=== PATIENT | female | born 1945 | race Caucasian/White ===

== ENCOUNTER 2017-07-31 07:17 | Day surgery (SDC) | payer MEDICARE ==
[2017-07-29 14:18] VITALS: BMI 30.9
[~2017-07-31 07:17] MED LIST: LACTATED RINGERS 1,000 ML IV SCH
[2017-07-31] MEDS ORDERED: LIDOCAINE 1% 20 ML VIAL (10MG/ML) FOR IV START INTRADERMA ONE (07:45)
[2017-07-31 07:53] LABS: Glucose,Whole Blood 149 mg/dL (75-99)
[2017-07-31 07:59] VITALS: TEMP 98.1
[2017-07-31] MEDS ORDERED: PROPOFOL 10 MG/ML 20 ML VIAL IV ONE (08:03)
[2017-07-31] MEDS ORDERED: LIDOCAINE 1% INJ 10MG/ML (20 ML MDV) ONE (08:03)
--- NOTE | 2017-07-31 08:16 | P.PCN ---
Date of Procedure: 07/31/17 Procedure(s) Performed: BRIEF HISTORY: Patient is a 72-year-old pleasant white female , scheduled for an elective colonoscopy as a part of screening for colon neoplasia. PROCEDURE PERFORMED: Colonoscopy. PREOPERATIVE DIAGNOSIS: Screening for colon cancer.. IV sedation per Anesthesia. PROCEDURE: After informed consent was obtained, the patient, was brought into the endoscopy unit. IV sedation was administered by Anesthesia under continuous monitoring. Digital rectal examination was normal. Initially the Olympus CF- 160 flexible video colonoscope was then inserted in the rectum, gradually advanced into the cecum without any difficulty. Careful examination was performed as the scope was gradually being withdrawn. Ileocecal valve and the appendiceal orifice were visualized and appeared normal. Prep was excellent. Mucosa of the cecum, ascending colon, transverse colon, descending colon, sigmoid colon, and rectum appeared normal. scattered sigmoid diverticulosis seen. Retroflexion was performed in the rectum and small internal hemorrhoids were seen. The patient tolerated the procedure well. IMPRESSION: Normal-appearing colon from rectum to cecum with no evidence of colorectal neoplasia . Scattered sigmoid diverticulosis Small internal hemorrhoids RECOMMENDATIONS: Findings of this examination were discussed with the patient as well as her family. She was advised to have a repeat screening colonoscopy at age 80.
[2017-07-31 08:39] VITALS: BP 130/77; PULSE 65; RESP 16
== END 2017-07-31 09:04 | disposition home or self-care (01) ==
LOC: ORWHC2ENDO 07:17
PROVIDERS: ATTEND Internal Medicine Gastroenterology
DX: Z12.11 Encounter for screening for malignant neoplasm of colon (principal); K57.30 Diverticulosis of large intestine without perforation or abscess without bleeding; K64.8 Other hemorrhoids; E11.9 Type 2 diabetes mellitus without complications; Z79.84 Long term (current) use of oral hypoglycemic drugs
CPT/HCPCS: J2001; J2704; G0121

== ENCOUNTER → 2017-09-21 | Outpatient (CLI) | payer MEDICARE ==
--- NOTE | 2017-09-21 16:22 | BD ---
EXAMINATION TYPE: MG DEXA axial skeleton. DATE OF EXAM: 09/21/2017 CLINICAL HISTORY: 72-year-old female osteoporosis, postmenopausal screening Height: 62.25 Weight: 175 FRAX RISK QUESTIONS: Alcohol (3 or more units per day): no Family History (Parent hip fracture): no Glucocorticoids (More than 3mos): no (Ex: prednisone, prednisolone, methylprednisolone, dexamethasone, and hydrocortisone). History of Fracture in Adulthood: no Secondary Osteoporosis: 1. Type 1 Diabetes: no 2. Hyperthyroidism: no 3. Menopause before 45: no 4. Malnutrition: no 5. Chronic liver disease: no Rheumatoid Arthritis: no Current Tobacco Use: no RISK FACTORS HISTORY OF: Family History of Osteoporosis: no Active: yes Diet low in dairy products/other sources of calcium: no Postmenopausal woman: yes Take estrogen and/or progesterone medications: not now How long: about 5 years Lost more than 2 inches in height since high school: no Frequent falls: no Poor Health: no Hyperparathyroidism: no Adrenal Insufficiency: no MEDICATIONS: Prednisone or other steroids: no Thyroid Medications: no Osteoporosis Medications: no Additional Medications: metformin Additional History: Type II diabetic EXAM MEASUREMENTS: Bone mineral densitometry was performed using the [employer] System. Bone mineral density as measured about the Lumbar spine is: ----- L1-L4(G/cm2): 1.243 T Score Values are as follows: ----- L2: 0.0 ----- L3: 0.9 ----- L4: 0.5 ----- L1-L4: 0.5 Bone mineral density has: Decreased -3.8% since study of: 06/26/2014 Bone mineral density about the R hip (g/cm2): 0.931 Bone mineral density about the L hip (g/cm2): 0.934 T Score values are as follows: -----R Neck: -0.8 -----L Neck: -0.7 -----R Total: 0.0 -----L Total: 0.1 Bone mineral density has: Decreased -3.3% since study of: 06/26/2014 IMPRESSION: Normal (Values between +1 and -1 indicate normal bone mass). Consider repeating this study in 5 year s or sooner if there is some new clinical indication. NOTE: T-SCORE=SD OF THE YOUNG ADULT MEAN.
--- NOTE | 2017-09-22 09:52 | MM ---
Reason for exam: screening (asymptomatic). Last mammogram was performed 1 year and 11 months ago. History: Patient is postmenopausal. Benign excisional biopsy of the left breast. Took estrogen for 5 years beginning at age 48. Took progesterone for 5 years beginning at age 48. Physical Findings: A clinical breast exam by your physician is recommended on an annual basis and results should be correlated with mammographic findings. MG 3D Screening Mammo W/Cad Bilateral CC and MLO view(s) were taken. Prior study comparison: October 26, 2015, bilateral MG 3d screening mammo w/cad. June 26, 2014, bilateral MG screening mammo w CAD. There are scattered fibroglandular densities. Finding: There are typically benign vascular, dystrophic, round calcifications in both breasts. ASSESSMENT: Benign, BI-RAD 2 RECOMMENDATION: Routine screening mammogram of both breasts in 1 year.
== END | disposition home or self-care (01) ==
LOC: RADMAMWWP 06:51
PROVIDERS: ATTEND Internal Medicine Geriatric Medicine
DX: Z12.31 Encounter for screening mammogram for malignant neoplasm of breast (principal); M81.0 Age-related osteoporosis without current pathological fracture
CPT/HCPCS: 77063; 77067; 77080

== ENCOUNTER → 2018-12-16 | Outpatient (CLI) | payer MEDICARE | END | disposition home or self-care (01) | LOC: LABWHC1 16:00 | PROVIDERS: ATTEND Internal Medicine Geriatric Medicine | DX: Z01.83 Encounter for blood typing (principal) | CPT/HCPCS: 86900; 86901 ==

== ENCOUNTER → 2019-03-23 | Outpatient (CLI) | payer MEDICARE | END | disposition home or self-care (01) | LOC: LABWHC1 09:54 | PROVIDERS: ATTEND Internal Medicine Endocrinology, Diabetes & Metabolism | DX: E11.65 Type 2 diabetes mellitus with hyperglycemia (principal) | CPT/HCPCS: 36415; 82947; 84681 ==

== ENCOUNTER 2020-04-07 15:49 | Inpatient (IN) | payer MEDICARE ==
[2020-04-07] MEDS ORDERED: SODIUM CHLORIDE 0.9% 1,000 ML IV STA ×2 (16:17→17:54)
[2020-04-07 16:44] LABS: Basophils # (A) 0.1 k/uL (0-0.2); Basophils % (A) 1 %; Eosinophils # (A) 0.1 k/uL (0-0.7); Eosinophils % (A) 1 %; HCT 36.6 % (34.0-46.0); HGB 11.7 gm/dL (11.4-16.0); Lymphocytes # (A) 0.6 k/uL (1.0-4.8); Lymphocytes % (A) 3 %; MCH 31.7 pg (25.0-35.0); MCHC 31.9 g/dL (31.0-37.0); MCV 99.4 fL (80.0-100.0); Mean Platelet Volume 8.7; Monocytes # (A) 0.9 k/uL (0-1.0); Monocytes % (A) 5 %; Neutrophils # (A) 15.3 k/uL (1.3-7.7); Neutrophils % (A) 90 %; Platelet Count 202 k/uL (150-450); RBC 3.68 m/uL (3.80-5.40); RDW 13.7 % (11.5-15.5); WBC 17.1 k/uL (3.8-10.6)
[2020-04-07 16:54] LABS: ALT 284 U/L (4-34); AST 600 U/L (14-36); African American GFR (CKD) >90 (>60 ml/min/1.73 sqM); Albumin 3.6 g/dL (3.5-5.0); Alkaline Phosphatase 318 U/L (38-126); Anion Gap 11 mmol/L; Blood Urea Nitrogen 20 mg/dL (7-17); Calcium 9.1 mg/dL (8.4-10.2); Carbon Dioxide 23 mmol/L (22-30); Chloride 101 mmol/L (98-107); Glucose 258 mg/dL (74-99); Lipase 86 U/L (23-300); Magnesium 1.9 mg/dL (1.6-2.3); Non-African American GFR(CKD) 78 (>60 ml/min/1.73 sqM); Potassium 4.2 mmol/L (3.5-5.1); Sodium 135 mmol/L (137-145); Total Protein 6.8 g/dL (6.3-8.2)
--- NOTE | 2020-04-07 16:54 | XR ---
EXAMINATION TYPE: XR chest 2V DATE OF EXAM: 04/07/2020 COMPARISON: None INDICATION: Abdomen pain dizziness TECHNIQUE: Frontal and lateral views of the chest are obtained. FINDINGS: The heart size is normal. The pulmonary vasculature is normal. The lungs are clear. IMPRESSION: 1. No acute pulmonary process.
--- NOTE | 2020-04-07 16:55 | XR ---
EXAMINATION TYPE: XR KUB DATE OF EXAM: 04/07/2020 COMPARISON: None INDICATION: Abdomen pain TECHNIQUE: Single view abdomen upright view FINDINGS: Nonspecific bowel gas is present. This appears to be colonic. No suspicious differential air-fluid le vels are evident. No free air is evident. Psoas margins are normal. No organomegaly is present. IMPRESSION: 1. Nonspecific abdomen.
[2020-04-07 17:02] LABS: INR 1.1 (<1.2); Prothrombin Time 10.8 sec (9.0-12.0)
--- NOTE | 2020-04-07 17:04 | ED ---
Dizziness HPI - General Chief Complaint: Dizziness Stated Complaint: dizziness/abdominal pain Time Seen by Provider: 04/07/20 15:59 Source: patient, RN notes reviewed Mode of arrival: ambulatory Limitations: no limitations - History of Present Illness Initial Comments: This is a 75-year-old female who presents with complaints of some dizziness also some abdominal pain and vague chest discomfort started about 2 days ago. He states the pain in the abdomen is the most concerning to her service in the epigastrium and goes down midline toward the pelvis is 7/10 severity otherwise nonradiating she denies any nausea vomiting diarrhea fevers chills or sweats. The pain does get somewhat worse with movement and deep breathing. Is no prior history of appendectomy or cholecystectomy no prior history of diverticulitis. She demonstrates no shortness of breath no cough or phlegm production no other modifying factors she also denies dysuria or hematuria MD Complaint: dizziness, other - Related Data Home Medications Medication Instructions Recorded Confirmed Fish Oil Dose Unk 1 each PO DAILY 07/29/17 07/31/17 Vitamin D Dose Unk 1 each PO DAILY 07/29/17 07/31/17 glyBURIDE/METFORMIN HCL 1 each PO DAILY 07/29/17 07/31/17 [Glucovance 1.25-250 mg] Allergies Allergy/AdvReac Type Severity Reaction Status Date / Time No Known Allergies Allergy Verified 04/07/20 19:27 Review of Systems ROS Statement: Those systems with pertinent positive or pertinent negative responses have been documented in the HPI. ROS Other: All systems not noted in ROS Statement are negative. Past Medical History Past Medical History: Diabetes Mellitus Additional Past Medical History / Comment(s): HAS A PESSARY History of Any Multi-Drug Resistant Organisms: None Reported Past Surgical History: Tubal Ligation Additional Past Surgical History / Comment(s): EYE SX TODDLER Past Anesthesia/Blood Transfusion Reactions: No Reported Reaction Past Psychological History: No Psychological Hx Reported Smoking Status: Never smoker Past Alcohol Use History: Rare Past Drug Use History: None Reported - Past Family History Mother Family Medical History: No Reported History General Exam - General Exam Comments Initial Comments: This is a well-developed well-nourished awake alert oriented 3 female Limitations: no limitations General appearance: alert, in no apparent distress Head exam: Present: atraumatic, normocephalic, normal inspection Eye exam: Present: normal appearance, PERRL, EOMI. Absent: scleral icterus, conjunctival injection, periorbital swelling ENT exam: Present: normal exam, mucous membranes moist Neck exam: Present: normal inspection, full ROM, other. Absent: tenderness, meningismus, lymphadenopathy Respiratory exam: Present: normal lung sounds bilaterally. Absent: respiratory distress, wheezes, rales, rhonchi, stridor Cardiovascular Exam: Present: regular rate, normal rhythm, normal heart sounds. Absent: systolic murmur, diastolic murmur, rubs, gallop, clicks GI/Abdominal exam: Present: soft, tenderness, normal bowel sounds. Absent: distended, guarding, rebound, rigid, bruit (Center. [place]), pulsatile mass Rectal exam: Present: deferred (Mild nonspecific tenderness no guarding rebound masses or bruits more so on the left lower quadrant) Extremities exam: Present: normal inspection, full ROM, normal capillary refill. Absent: tenderness, pedal edema, joint swelling, calf tenderness Back exam: Present: normal inspection Neurological exam: Present: alert, oriented X3, CN II-XII intact Psychiatric exam: Present: normal affect, normal mood Skin exam: Present: warm, dry, intact, normal color. Absent: rash Course Vital Signs 04/07/20 04/07/20 15:50 17:51 Temperature 97.8 F Pulse Rate 73 75 Respiratory 18 18 Rate Blood Pressure 132/58 153/69 O2 Sat by Pulse 97 97 Oximetry EKG Findings - EKG Results: EKG: interpreted by ERMD, sinus rhythm (Neuro sinus rhythm of 69 with a ND interval interval of 138 QRS duration 70 QT since QTC 400/428 normal-appearing EKG) Medical Decision Making - Medical Decision Making I did discuss findings with the patient with Dr. Mcmahon patient be admitted with GI consultation IV fluids antibiotics clear liquids at this time. Consultation with Dr. Dave who did call back. - Lab Data Result diagrams: 04/07/20 16:28 04/07/20 16:28 Lab Results 04/07/20 04/07/20 04/07/20 Range/Units 16:28 16:28 16:28 WBC 17.1 H (3.8-10.6) k/uL RBC 3.68 L (3.80-5.40) m/uL Hgb 11.7 (11.4-16.0) gm/dL Hct 36.6 (34.0-46.0) % MCV 99.4 (80.0-100.0) fL MCH 31.7 (25.0-35.0) pg MCHC 31.9 (31.0-37.0) g/dL RDW 13.7 (11.5-15.5) % Plt Count 202 (150-450) k/uL Neutrophils % 90 % Lymphocytes % 3 % Monocytes % 5 % Eosinophils % 1 % Basophils % 1 % Neutrophils # 15.3 H (1.3-7.7) k/uL Lymphocytes # 0.6 L (1.0-4.8) k/uL Monocytes # 0.9 (0-1.0) k/uL Eosinophils # 0.1 (0-0.7) k/uL Basophils # 0.1 (0-0.2) k/uL PT 10.8 (9.0-12.0) sec INR 1.1 (<1.2) D-Dimer 1.83 H (<0.60) mg/L FEU Sodium 135 L (137-145) mmol/L Potassium 4.2 (3.5-5.1) mmol/L Chloride 101 (98-107) mmol/L Carbon Dioxide 23 (22-30) mmol/L Anion Gap 11 mmol/L BUN 20 H (7-17) mg/dL Creatinine 0.75 (0.52-1.04) mg/dL Est GFR (CKD-EPI)AfAm >90 (>60 ml/min/1.73 sqM) Est GFR (CKD-EPI)NonAf 78 (>60 ml/min/1.73 sqM) Glucose 258 H (74-99) mg/dL Lactic Ac Sepsis Rflx Plasma Lactic Acid Jeevan (0.7-2.0) mmol/L Calcium 9.1 (8.4-10.2) mg/dL Magnesium 1.9 (1.6-2.3) mg/dL Total Bilirubin 3.0 H (0.2-1.3) mg/dL AST 600 H (14-36) U/L ALT 284 H (4-34) U/L Alkaline Phosphatase 318 H (38-126) U/L Troponin I (0.000-0.034) ng/mL Total Protein 6.8 (6.3-8.2) g/dL Albumin 3.6 (3.5-5.0) g/dL Lipase 86 (23-300) U/L Urine Color Urine Appearance (Clear) Urine pH (5.0-8.0) Ur Specific [place] (1.001-1.035) Urine Protein (Negative) Urine Glucose (UA) (Negative) Urine Ketones (Negative) Urine Blood (Negative) Urine Nitrite (Negative) Urine Bilirubin (Negative) Urine Urobilinogen (<2.0) mg/dL Ur Leukocyte Esterase (Negative) Urine RBC (0-5) /hpf Urine WBC (0-5) /hpf Ur Squamous Epith Cells (0-4) /hpf Urine Mucus (None) /hpf 04/07/20 04/07/20 04/07/20 Range/Units 16:28 16:37 17:01 WBC (3.8-10.6) k/uL RBC (3.80-5.40) m/uL Hgb (11.4-16.0) gm/dL Hct (34.0-46.0) % MCV (80.0-100.0) fL MCH (25.0-35.0) pg MCHC (31.0-37.0) g/dL RDW (11.5-15.5) % Plt Count (150-450) k/uL Neutrophils % % Lymphocytes % % Monocytes % % Eosinophils % % Basophils % % Neutrophils # (1.3-7.7) k/uL Lymphocytes # (1.0-4.8) k/uL Monocytes # (0-1.0) k/uL Eosinophils # (0-0.7) k/uL Basophils # (0-0.2) k/uL PT (9.0-12.0) sec INR (<1.2) D-Dimer (<0.60) mg/L FEU Sodium (137-145) mmol/L Potassium (3.5-5.1) mmol/L Chloride (98-107) mmol/L Carbon Dioxide (22-30) mmol/L Anion Gap mmol/L BUN (7-17) mg/dL Creatinine (0.52-1.04) mg/dL Est GFR (CKD-EPI)AfAm (>60 ml/min/1.73 sqM) Est GFR (CKD-EPI)NonAf (>60 ml/min/1.73 sqM) Glucose (74-99) mg/dL Lactic Ac Sepsis Rflx Y Plasma Lactic Acid Jeevan 3.0 H* (0.7-2.0) mmol/L Calcium (8.4-10.2) mg/dL Magnesium (1.6-2.3) mg/dL Total Bilirubin (0.2-1.3) mg/dL AST (14-36) U/L ALT (4-34) U/L Alkaline Phosphatase (38-126) U/L Troponin I <0.012 (0.000-0.034) ng/mL Total Protein (6.3-8.2) g/dL Albumin (3.5-5.0) g/dL Lipase (23-300) U/L Urine Color Urine Appearance (Clear) Urine pH (5.0-8.0) Ur Specific [place] (1.001-1.035) Urine Protein (Negative) Urine Glucose (UA) (Negative) Urine Ketones (Negative) Urine Blood (Negative) Urine Nitrite (Negative) Urine Bilirubin (Negative) Urine Urobilinogen (<2.0) mg/dL Ur Leukocyte Esterase (Negative) Urine RBC (0-5) /hpf Urine WBC (0-5) /hpf Ur Squamous Epith Cells (0-4) /hpf Urine Mucus (None) /hpf 04/07/20 Range/Units 19:01 WBC (3.8-10.6) k/uL RBC (3.80-5.40) m/uL Hgb (11.4-16.0) gm/dL Hct (34.0-46.0) % MCV (80.0-100.0) fL MCH (25.0-35.0) pg MCHC (31.0-37.0) g/dL RDW (11.5-15.5) % Plt Count (150-450) k/uL Neutrophils % % Lymphocytes % % Monocytes % % Eosinophils % % Basophils % % Neutrophils # (1.3-7.7) k/uL Lymphocytes # (1.0-4.8) k/uL Monocytes # (0-1.0) k/uL Eosinophils # (0-0.7) k/uL Basophils # (0-0.2) k/uL PT (9.0-12.0) sec INR (<1.2) D-Dimer (<0.60) mg/L FEU Sodium (137-145) mmol/L Potassium (3.5-5.1) mmol/L Chloride (98-107) mmol/L Carbon Dioxide (22-30) mmol/L Anion Gap mmol/L BUN (7-17) mg/dL Creatinine (0.52-1.04) mg/dL Est GFR (CKD-EPI)AfAm (>60 ml/min/1.73 sqM) Est GFR (CKD-EPI)NonAf (>60 ml/min/1.73 sqM) Glucose (74-99) mg/dL Lactic Ac Sepsis Rflx Plasma Lactic Acid Jeevan (0.7-2.0) mmol/L Calcium (8.4-10.2) mg/dL Magnesium (1.6-2.3) mg/dL Total Bilirubin (0.2-1.3) mg/dL AST (14-36) U/L ALT (4-34) U/L Alkaline Phosphatase (38-126) U/L Troponin I (0.000-0.034) ng/mL Total Protein (6.3-8.2) g/dL Albumin (3.5-5.0) g/dL Lipase (23-300) U/L Urine Color Yellow Urine Appearance Clear (Clear) Urine pH 6.0 (5.0-8.0) Ur Specific [place] >1.050 H (1.001-1.035) Urine Protein 1+ H (Negative) Urine Glucose (UA) 4+ H (Negative) Urine Ketones 1+ H (Negative) Urine Blood Small H (Negative) Urine Nitrite Negative (Negative) Urine Bilirubin 1+ H (Negative) Urine Urobilinogen 4.0 (<2.0) mg/dL Ur Leukocyte Esterase Large H (Negative) Urine RBC 5 (0-5) /hpf Urine WBC 12 H (0-5) /hpf Ur Squamous Epith Cells 6 H (0-4) /hpf Urine Mucus Occasional H (None) /hpf - Radiology Data Radiology results: report reviewed (I did review the imaging and report is evidence of an enlarged gallbladder with the enlarged common bile duct 8 mm. Imaging there unremarkable), image reviewed Disposition Clinical Impression: Acute cholecystitis, Hyperbilirubinemia, Abdominal pain Disposition: ADMITTED IP TO THIS HOSP Condition: Fair Referrals: Baltazar Amaya MD [Primary Care Provider] - 1-2 days
[2020-04-07 17:22] LABS: D-Dimer 1.83 mg/L FEU (<0.60)
--- NOTE | 2020-04-07 17:58 | US ---
EXAMINATION TYPE: US gallbladder DATE OF EXAM: 04/07/2020 COMPARISON: NONE CLINICAL HISTORY: Abdominal pain, elevated bilirubin. Pain EXAM MEASUREMENTS: Liver Length: 12.1 cm Gallbladder Wall: 0.3 cm CBD: 0.8 cm Right Kidney: 9.5 x 4.5 x 3.3 cm Pancreas: Appears slightly echogenic Liver: appears wnl Gallbladder: Large amount of sludge visualized. Evidence for sonographic Rincon's sign: No CBD: wnl Right Kidney: Limited due to overlying bowel gas. IMPRESSION: 1. Large debris-filled gallbladder. Consider cholecystitis. Underlying mass and neoplasm of the gallb ladder is not excluded.
--- NOTE | 2020-04-07 19:09 | CT ---
EXAMINATION TYPE: CT abdomen pelvis w con DATE OF EXAM: 04/07/2020 COMPARISON: None INDICATION: Pelvic pain x couple days. DLP: 1058.3 mGycm, Automated exposure control for dose reduction was used. CONTRAST: 100 mL of Isovue 300. Study performed without Oral Contrast TECHNIQUE: Axial images were obtained from above the diaphragm to the pubic rami in the axial plane a t 5 mm thick sections. Reconstructed images are reviewed on the computer in the coronal plane. FINDINGS: Limited CT sections are obtained the lung bases. The lung bases are clear. CT ABDOMEN: Liver: Normal Spleen: Normal Pancreas: Atrophic Adrenal glands: The adrenal glands are normal. Gallbladder: Gallbladder is distended. The common bile duct appears somewhat prominent. There may be a small density at the neck of the gallbladder. Some inflammatory changes adjacent to the fundus of t he gallbladder. Correlate for acute cholecystitis. Kidneys: No masses are evident. No hydronephrosis is present. There is a 1.0 cm cyst on the cortex of the posterior lateral right kidney. Delayed images were obtained through the kidneys, which remai n unremarkable. Aorta: Vascular calcification is within the aorta. Inferior vena cava: Normal. CT PELVIS: Loops of bowel within the abdomen and pelvis are normal. Study is performed without oral contrast limiting bowel evaluation. Multiple diverticular changes without acute diverticulitis are within the mid sigmoid colon. Appendix: Normal as visualized. Urinary bladder: Normal. Pessary is under the urinary bladder. Genitourinary structures: Uterus is normal. Adnexal regions are clear Osseous structures: No suspicious lytic or sclerotic lesions. IMPRESSIONS: 1. Distended gallbladder with some adjacent inflammatory changes and prominent common bile duct. Cor relate for acute cholecystitis. A small gallstone near the gallbladder neck is not excluded
[2020-04-07 19:19] LABS: Appearance,Urine Clear (Clear); Bilirubin,Urine 1+ (Negative); Blood,Urine Small (Negative); Color,Urine Yellow; Glucose,Urine (UA) 4+ (Negative); Ketones,Urine 1+ (Negative); Leukocyte Esterase,Urine Large (Negative); Mucus,Urine Occasional /hpf; Nitrite,Urine Negative (Negative); Protein,Urine 1+ (Negative); RBC,Urine 5 /hpf (0-5); Specific Gravity,Urine >1.050 (1.001-1.035); Squamous Epithelial Cell,Urine 6 /hpf (0-4); WBC,Urine 12 /hpf (0-5)
[2020-04-07] MEDS ORDERED: PIPERACILLIN-TAZOBACTAM 3.375 GM in SODIUM CHLORIDE 0.9% 100 ML IVPB STA (19:20)
[2020-04-07] MEDS ORDERED: NALOXONE 0.4 MG/ML 1 ML VIAL IV PRN (19:32)
--- NOTE | 2020-04-07 19:32 | ED ---
Medical Decision Making - Lab Data Result diagrams: 04/07/20 16:28 04/07/20 16:28 Lab Results 04/07/20 04/07/20 04/07/20 Range/Units 16:28 16:28 16:28 WBC 17.1 H (3.8-10.6) k/uL RBC 3.68 L (3.80-5.40) m/uL Hgb 11.7 (11.4-16.0) gm/dL Hct 36.6 (34.0-46.0) % MCV 99.4 (80.0-100.0) fL MCH 31.7 (25.0-35.0) pg MCHC 31.9 (31.0-37.0) g/dL RDW 13.7 (11.5-15.5) % Plt Count 202 (150-450) k/uL Neutrophils % 90 % Lymphocytes % 3 % Monocytes % 5 % Eosinophils % 1 % Basophils % 1 % Neutrophils # 15.3 H (1.3-7.7) k/uL Lymphocytes # 0.6 L (1.0-4.8) k/uL Monocytes # 0.9 (0-1.0) k/uL Eosinophils # 0.1 (0-0.7) k/uL Basophils # 0.1 (0-0.2) k/uL PT 10.8 (9.0-12.0) sec INR 1.1 (<1.2) D-Dimer 1.83 H (<0.60) mg/L FEU Sodium 135 L (137-145) mmol/L Potassium 4.2 (3.5-5.1) mmol/L Chloride 101 (98-107) mmol/L Carbon Dioxide 23 (22-30) mmol/L Anion Gap 11 mmol/L BUN 20 H (7-17) mg/dL Creatinine 0.75 (0.52-1.04) mg/dL Est GFR (CKD-EPI)AfAm >90 (>60 ml/min/1.73 sqM) Est GFR (CKD-EPI)NonAf 78 (>60 ml/min/1.73 sqM) Glucose 258 H (74-99) mg/dL Lactic Ac Sepsis Rflx Plasma Lactic Acid Jeevan (0.7-2.0) mmol/L Calcium 9.1 (8.4-10.2) mg/dL Magnesium 1.9 (1.6-2.3) mg/dL Total Bilirubin 3.0 H (0.2-1.3) mg/dL AST 600 H (14-36) U/L ALT 284 H (4-34) U/L Alkaline Phosphatase 318 H (38-126) U/L Troponin I (0.000-0.034) ng/mL Total Protein 6.8 (6.3-8.2) g/dL Albumin 3.6 (3.5-5.0) g/dL Lipase 86 (23-300) U/L Urine Color Urine Appearance (Clear) Urine pH (5.0-8.0) Ur Specific [place] (1.001-1.035) Urine Protein (Negative) Urine Glucose (UA) (Negative) Urine Ketones (Negative) Urine Blood (Negative) Urine Nitrite (Negative) Urine Bilirubin (Negative) Urine Urobilinogen (<2.0) mg/dL Ur Leukocyte Esterase (Negative) Urine RBC (0-5) /hpf Urine WBC (0-5) /hpf Ur Squamous Epith Cells (0-4) /hpf Urine Mucus (None) /hpf 04/07/20 04/07/20 04/07/20 Range/Units 16:28 16:37 17:01 WBC (3.8-10.6) k/uL RBC (3.80-5.40) m/uL Hgb (11.4-16.0) gm/dL Hct (34.0-46.0) % MCV (80.0-100.0) fL MCH (25.0-35.0) pg MCHC (31.0-37.0) g/dL RDW (11.5-15.5) % Plt Count (150-450) k/uL Neutrophils % % Lymphocytes % % Monocytes % % Eosinophils % % Basophils % % Neutrophils # (1.3-7.7) k/uL Lymphocytes # (1.0-4.8) k/uL Monocytes # (0-1.0) k/uL Eosinophils # (0-0.7) k/uL Basophils # (0-0.2) k/uL PT (9.0-12.0) sec INR (<1.2) D-Dimer (<0.60) mg/L FEU Sodium (137-145) mmol/L Potassium (3.5-5.1) mmol/L Chloride (98-107) mmol/L Carbon Dioxide (22-30) mmol/L Anion Gap mmol/L BUN (7-17) mg/dL Creatinine (0.52-1.04) mg/dL Est GFR (CKD-EPI)AfAm (>60 ml/min/1.73 sqM) Est GFR (CKD-EPI)NonAf (>60 ml/min/1.73 sqM) Glucose (74-99) mg/dL Lactic Ac Sepsis Rflx Y Plasma Lactic Acid Jeevan 3.0 H* (0.7-2.0) mmol/L Calcium (8.4-10.2) mg/dL Magnesium (1.6-2.3) mg/dL Total Bilirubin (0.2-1.3) mg/dL AST (14-36) U/L ALT (4-34) U/L Alkaline Phosphatase (38-126) U/L Troponin I <0.012 (0.000-0.034) ng/mL Total Protein (6.3-8.2) g/dL Albumin (3.5-5.0) g/dL Lipase (23-300) U/L Urine Color Urine Appearance (Clear) Urine pH (5.0-8.0) Ur Specific [place] (1.001-1.035) Urine Protein (Negative) Urine Glucose (UA) (Negative) Urine Ketones (Negative) Urine Blood (Negative) Urine Nitrite (Negative) Urine Bilirubin (Negative) Urine Urobilinogen (<2.0) mg/dL Ur Leukocyte Esterase (Negative) Urine RBC (0-5) /hpf Urine WBC (0-5) /hpf Ur Squamous Epith Cells (0-4) /hpf Urine Mucus (None) /hpf 04/07/20 Range/Units 19:01 WBC (3.8-10.6) k/uL RBC (3.80-5.40) m/uL Hgb (11.4-16.0) gm/dL Hct (34.0-46.0) % MCV (80.0-100.0) fL MCH (25.0-35.0) pg MCHC (31.0-37.0) g/dL RDW (11.5-15.5) % Plt Count (150-450) k/uL Neutrophils % % Lymphocytes % % Monocytes % % Eosinophils % % Basophils % % Neutrophils # (1.3-7.7) k/uL Lymphocytes # (1.0-4.8) k/uL Monocytes # (0-1.0) k/uL Eosinophils # (0-0.7) k/uL Basophils # (0-0.2) k/uL PT (9.0-12.0) sec INR (<1.2) D-Dimer (<0.60) mg/L FEU Sodium (137-145) mmol/L Potassium (3.5-5.1) mmol/L Chloride (98-107) mmol/L Carbon Dioxide (22-30) mmol/L Anion Gap mmol/L BUN (7-17) mg/dL Creatinine (0.52-1.04) mg/dL Est GFR (CKD-EPI)AfAm (>60 ml/min/1.73 sqM) Est GFR (CKD-EPI)NonAf (>60 ml/min/1.73 sqM) Glucose (74-99) mg/dL Lactic Ac Sepsis Rflx Plasma Lactic Acid Jeevan (0.7-2.0) mmol/L Calcium (8.4-10.2) mg/dL Magnesium (1.6-2.3) mg/dL Total Bilirubin (0.2-1.3) mg/dL AST (14-36) U/L ALT (4-34) U/L Alkaline Phosphatase (38-126) U/L Troponin I (0.000-0.034) ng/mL Total Protein (6.3-8.2) g/dL Albumin (3.5-5.0) g/dL Lipase (23-300) U/L Urine Color Yellow Urine Appearance Clear (Clear) Urine pH 6.0 (5.0-8.0) Ur Specific [place] >1.050 H (1.001-1.035) Urine Protein 1+ H (Negative) Urine Glucose (UA) 4+ H (Negative) Urine Ketones 1+ H (Negative) Urine Blood Small H (Negative) Urine Nitrite Negative (Negative) Urine Bilirubin 1+ H (Negative) Urine Urobilinogen 4.0 (<2.0) mg/dL Ur Leukocyte Esterase Large H (Negative) Urine RBC 5 (0-5) /hpf Urine WBC 12 H (0-5) /hpf Ur Squamous Epith Cells 6 H (0-4) /hpf Urine Mucus Occasional H (None) /hpf Disposition Clinical Impression: Acute cholecystitis, Hyperbilirubinemia, Abdominal pain, Lactic acidosis Disposition: ADMITTED IP TO THIS HOSP Condition: Fair Referrals: Baltazar Amaya MD [Primary Care Provider] - 1-2 days
[2020-04-07 21:32] LABS: Glucose,Whole Blood 245 mg/dL (75-99)
[2020-04-07] MEDS: SODIUM CHLORIDE 0.9% 1,000 ML IV SCH (21:52)
[2020-04-07] MEDS ORDERED: MELATONIN 3 MG TABLET PO PRN (22:30)
[2020-04-07] MEDS: HYDROmorphone 1 MG/ML 1 ML SYRINGE IVP PRN (22:31)
[2020-04-07] MEDS: INSULIN ASPART (NovoLOG) 100 UNIT/ML VIAL SQ SCH (23:07)
[2020-04-08 01:43] LABS: Glucose,Whole Blood 146 mg/dL (75-99)
[2020-04-08] MEDS: PIPERACILLIN-TAZOBACTAM 3.375 GM in SODIUM CHLORIDE 0.9% 100 ML IVPB SCH ×3 (04:48→20:29)
[2020-04-08] MEDS: ONDANSETRON 4 MG/2 ML VIAL IVP PRN (04:50)
[2020-04-08] MEDS: SODIUM CHLORIDE 0.9% 1,000 ML IV SCH ×3 (05:52→20:29)
[2020-04-08 06:06] LABS: Glucose,Whole Blood 217 mg/dL (75-99)
[2020-04-08] MEDS ORDERED: INSULIN ASPART (NovoLOG) 100 UNIT/ML VIAL SQ SCH (07:30)
[2020-04-08] MEDS: INSULIN ASPART (NovoLOG) 100 UNIT/ML VIAL SQ SCH ×4 (08:02→20:42)
[2020-04-08 08:53] LABS: Basophils # (A) 0.1 k/uL (0-0.2); Basophils % (A) 0 %; Eosinophils % (A) 0 %; HCT 30.4 % (34.0-46.0); Hypochromasia Slight; Lymphocytes # (A) 0.6 k/uL (1.0-4.8); Lymphocytes % (A) 2 %; MCH 32.1 pg (25.0-35.0); MCHC 31.8 g/dL (31.0-37.0); MCV 100.9 fL (80.0-100.0); Macrocytosis Slight; Mean Platelet Volume 8.3; Monocytes # (A) 1.1 k/uL (0-1.0); Monocytes % (A) 4 %; Neutrophils # (A) 23.7 k/uL (1.3-7.7); Neutrophils % (A) 92 %; Platelet Count 191 k/uL (150-450); RBC 3.01 m/uL (3.80-5.40); RDW 13.8 % (11.5-15.5); WBC 25.7 k/uL (3.8-10.6)
[2020-04-08 08:57] LABS: HGB 9.7 gm/dL (11.4-16.0)
[2020-04-08 08:58] LABS: Albumin 2.7 g/dL (3.5-5.0); Potassium 4.1 mmol/L (3.5-5.1); Total Bilirubin 3.5 mg/dL (0.2-1.3); Total Protein 5.3 g/dL (6.3-8.2)
[2020-04-08] MEDS: PANTOPRAZOLE 40 MG/10 ML VIAL IV SCH (10:07)
--- NOTE | 2020-04-08 10:58 | CONS ---
CONSULTATION DATE OF CONSULTATION: 04/08/2020 REQUESTING PHYSICIAN: Dr. Amaya. REASON FOR CONSULTATION: Elevated LFTs and jaundice. Abdominal pain. HISTORY OF PRESENT ILLNESS: The patient is a 75-year-old pleasant white female who was admitted to the hospital, as she was complaining of some vague chest pain and abdominal discomfort for the last 2 days duration. Apparently she was brought to the emergency room by her son and most of the history was obtained from him as per the ER note. The patient is somewhat confused early this morning. She denies any abdominal pain today. She reports no nausea, vomiting. She recalls having some vague abdominal pain, but cannot give me a clear history. She came to the emergency room and she had labs done that showed that she was jaundiced and labs revealed a bilirubin of 3, AST and ALT of 600 and 284 respectively, alkaline phosphatase of 380. She did have ultrasound of the gallbladder that showed evidence of debris in the gallbladder, large debris-filled gallbladder and cholecystitis could not be excluded. Underlying mass or neoplasm could not be excluded. Subsequently she had a CT of the abdomen and pelvis done last night that showed gallbladder was distended and common bile duct appears somewhat prominent. Small density noted in the neck of the gallbladder. Some inflammatory changes suggested to the fundus of the gallbladder consistent with possible acute cholecystitis. Pancreas appeared atrophic, but no masses seen. She is feeling better today. She reports no symptoms. No fever, chills, night sweats. PAST MEDICAL HISTORY: Significant for diabetes mellitus. PAST SURGICAL HISTORY: Tubal ligation and some eye surgery. MEDICATIONS: Medications at home include Glucovance, fish oil, vitamin D. ALLERGIES: No known drug allergies. SOCIAL HISTORY: No smoking. No alcohol use. FAMILY HISTORY: Mother unremarkable. Father unremarkable. REVIEW OF SYSTEMS: CARDIOPULMONARY: No chest pain or shortness of breath. : No dysuria OR hematuria. MUSCULOSKELETAL: Unremarkable. SKIN: Unremarkable. ENDOCRINE: Unremarkable. PSYCHIATRIC: Unremarkable. NEUROLOGY: Unremarkable. ENT/VISION: Unremarkable. CONSTITUTIONAL: No recent weight loss. No fever, chills, night sweats. PHYSICAL EXAMINATION: She appears comfortable. No apparent distress. VITAL SIGNS: Stable. Blood pressure 129/78, pulse rate 80, temperature 97.8. HEENT: Examination unremarkable. Conjunctivae are pink. Sclerae anicteric. Oral cavity no lesions. NECK: No JVD or lymph node enlargement. CHEST: Clear to auscultation. HEART: Regular rate and rhythm. ABDOMEN: Soft. Minimal tenderness in the epigastric area. Bowel sounds are positive. No organomegaly. EXTREMITIES: No pedal edema. SKIN: No rashes. NEURO: She is alert and oriented x3. No focal deficits. LABS: Labs done from yesterday WBC 17.1, hemoglobin 11.7, platelets normal. PT, INR is within normal limits. T-bilirubin is 3. AST 600, ALT 284, alkaline phosphatase 318. IMPRESSION: 1. This is a lady who presented with vague epigastric pain for the last 2 days duration and noted to have elevated serum transaminases and jaundice with a bilirubin of 3 and ALT and AST in the range of 300 and 600 respectively. Ultrasound showed distended gallbladder with debris noted with slightly distended CBD. Subsequent CT scan of the abdomen showed gallbladder to be distended, common bile duct slightly prominent, small density in the neck of the gallbladder with inflammatory changes adjacent to the fundus of the gallbladder and no pancreatic mass is seen. The patient was already started on broad-spectrum antibiotics for possible acute cholecystitis. She is asymptomatic presently. Elevated LFTs and jaundice probably related to choledocholithiasis. 2. History of diabetes mellitus. RECOMMENDATIONS: 1. Start on clear liquid diet. 2. Continue with antibiotics. 3. Repeat labs today and tomorrow. 4. Proceed with an ERCP tomorrow. I discussed with the patient risks, benefits and complications and she is agreeable. Thank you for this consultation. MMODL / IJN: [id number] /
[2020-04-08 12:04] LABS: Glucose,Whole Blood 194 mg/dL (75-99)
--- NOTE | 2020-04-08 14:03 | P.HPIM ---
History of Present Illness H&P Date: 04/08/20 Chief Complaint: Abdominal pain, This 75-year-old pleasant female patient of Dr. Amaya. She has underlying history of diabetes mellitus type 2, otherwise healthy. Was seen in emergency room secondary to vague abdominal pain, off and on for the past 2 weeks, this has gotten worse over the past 1 week, accompanied by lightheadedness dizziness, fatigue no appetite, patient denies any fever no chills, pain is in the epigastric region 7 out of 10, nonradiating. Patient denies any urine discoloration or stool discoloration, no diarrhea, pain Once in the emergency room, liver function test was noted to be elevated, she slightly jaundice, bili of 3, AST of 600 ALT of 284, alkaline force of 380, ultrasound of the gallbladder showed distended large gallbladder with the previous filled gallbladder, common bile duct is 0.8 cm, common bile duct wall of 0.3 cm, consider cholecystitis, underlying mass any plasm the gallbladder is not excluded CAT scan of the abdomen and pelvis with contrast shows the gallbladder is distended, pancreas is atrophic, common bile duct somewhat prominent, maybe small density at the neck of the gallbladder, some inflammatory change adjacent to the fundus of the gallbladder, correlate for acute cholecystitis. Patient was admitted, with cholecystitis with choledocholithiasis, acute jaundice, blood cultures are positive for gram-negative bacilli, patient's on IV Zosyn. Consult with Dr. Bunn, and Dr. Perez. Review of Systems Constitutional: Reports as per HPI, Reports anorexia, Reports fatigue, Reports lethargy, Reports weakness Ears, nose, mouth and throat: Reports as per HPI Cardiovascular: Reports as per HPI, Denies chest pain, Denies claudication, Denies decreased exercise tolerance, Denies dyspnea on exertion, Denies edema, Denies high blood pressure, Denies irregular heart beat, Denies leg edema, Denies lightheadedness, Denies orthopnea, Denies palpitations, Denies paroxysmal nocturnal dyspnea, Denies phlebitis, Denies rapid heart beat, Denies shortness of breath, Denies syncope Respiratory: Reports as per HPI Gastrointestinal: Reports as per HPI, Reports abdominal pain, Reports belching, Reports bloating, Denies BRBPR, Denies change in bowel habits, Denies coffee ground emesis, Denies constipation, Denies diarrhea, Denies dyspepsia, Denies early satiety, Denies excessive gas, Denies heartburn, Denies hematemesis, Denies hematochezia, Denies indigestion, Denies jaundice, Denies lactose intolerance, Denies loss of appetite, Denies melena, Denies nausea, Denies vom iting Genitourinary: Reports as per HPI Menstruation: Reports as per HPI Musculoskeletal: Reports as per HPI, Denies arm numbness/tingling, Denies atrophy, Denies fractures, Denies frequent falls, Denies gait dysfunction, Den ies hot joints, Denies leg numbness/tingling, Denies limitation of motion, Denies loss of height, Denies low back pain, Denies morning stiffness, Denies muscle cramps, Denies muscle weakness, Denies myalgias, Denies neck pain, Denies neck stiffness, Denies prior amputations, Denies redness of joints, Denies shooting arm pain, Denies shooting leg pain Integumentary: Reports as per HPI, Denies acne, Denies boils, Denies brittle nails, Denies change in hair/nails, Denies color changes, Denies darkening of skin, Denies depigmentation, Denies dryness, Denies foot/leg ulcers, Denies growths, Denies hirsutism, Denies lesions, Denies onychomycosis, Denies pruritus, Denies rash, Denies sores, Denies striae, Denies unusual bruising, Denies wounds Neurological: Reports as per HPI, Reports weakness, Denies aphasia, Denies ataxia, Denies balance difficulties, Denies burning pain, Denies change in mentation, Denies change in smell/taste, Denies change in speech, Denies confusion, Denies convulsions, Denies double vision, Denies gait dysfunction, De nies head injury, Denies headaches, Denies hearing difficulties, Denies lack of coordination, Denies loss of vision, Denies memory loss, Denies migraines, Denies motor disturbance, Denies numbness, Denies paralysis, Denies paresthesias, Denies seizures, Denies sensory deficit, Denies spasticity, Denies syncope, Denies tic, Denies tingling, Denies transient paralysis, Denies tremors, Denies vertigo, Denies visual changes Psychiatric: Reports as per HPI, Denies anhedonia, Denies anxiety, Denies anxiety attacks, Denies change in appetite, Denies change in libido, Denies c hange in sleep habits, Denies confusion, Denies depression, Denies difficulty concentrating, Denies disorientation, Denies hallucinations, Denies hopelessness, Denies hypersomnia, Denies insomnia, Denies irritability, Denies memory loss, Denies mood swings, Denies paranoia, Denies sadness/tearfulness, Denies sleep disturbances, Denies suicidal ideation Endocrine: Reports as per HPI, Denies cold intolerance, Denies deepening of the voice, Denies excessive sweating, Denies excessive thirst, Denies fatigue, Denies flushing, Denies heat intolerance, Denies high blood sugars, Denies increase in ring/shoe/hat size, Denies low blood sugars, Denies nocturia, Denies palpitations, Denies polydipsia, Denies polyphagia, Denies polyuria, Denies proptosis, Denies recent glucocorticoid use, Denies thyroid mass, Denies weight change Hematologic/Lymphatic: Reports as per HPI Allergic/Immunologic: Reports as per HPI Past Medical History Past Medical History: Diabetes Mellitus Additional Past Medical History / Comment(s): HAS A PESSARY History of Any Multi-Drug Resistant Organisms: None Reported Past Surgical History: Tubal Ligation Additional Past Surgical History / Comment(s): EYE SX TODDLER Past Anesthesia/Blood Transfusion Reactions: No Reported Reaction Past Psychological History: No Psychological Hx Reported Smoking Status: Never smoker Past Alcohol Use History: Rare Past Drug Use History: None Reported - Past Family History Mother Family Medical History: No Reported History Father Family Medical History: No Reported History Brother(s) Family Medical History: Osteoarthritis (OA) Sister(s) Family Medical History: No Reported History Daughter(s) Family Medical History: No Reported History Son(s) Family Medical History: No Reported History Medications and Allergies Home Medications Medication Instructions Recorded Confirmed Type Glimepiride [Amaryl] 4 mg PO DAILY 04/07/20 04/07/20 History Allergies Allergy/AdvReac Type Severity Reaction Status Date / Time No Known Allergies Allergy Verified 04/07/20 19:27 Physical Exam Vitals: Vital Signs Temp Pulse Pulse Resp BP BP Pulse Ox 04/08/20 02:24 83 15 04/08/20 02:00 97.8 F 80 17 149/78 98 04/07/20 21:10 98.8 F 83 15 94 L 04/07/20 20:12 98.1 F 75 16 144/68 99 04/07/20 17:51 75 18 153/69 97 04/07/20 15:50 97.8 F 73 18 132/58 97 Intake and Output 04/07/20 04/08/20 04/08/20 23:59 06:59 14:59 Intake Total Balance Intake: Oral Other: # Voids Weight - Constitutional General appearance: cooperative, no acute distress - EENT Eyes: anicteric sclerae, PERRLA, dentition normal, normal appearance ENT: NA/AT, normal oropharynx - Neck Neck: normal ROM - Respiratory Respiratory: bilateral: CTA, negative: diminished, dullness - Cardiovascular Rhythm: regular Heart sounds: normal: S1, S2 Abnormal Heart Sounds: no systolic murmur, no diastolic murmur, no rub, no S3 Gallop, no S4 Gallop, no click, no other - Gastrointestinal General gastrointestinal: normal bowel sounds, soft, tenderness ( none neg mu rphy) - Integumentary Integumentary: normal, normal turgor - Neurologic Neurologic: CNII-XII intact Results CBC & Chem 7: 04/08/20 08:02 04/08/20 08:02 Labs: Abnormal Lab Results - Last 24 Hours (Table) 04/07/20 04/07/20 04/07/20 Range/Units 16:28 16:28 16:28 WBC 17.1 H (3.8-10.6) k/uL RBC 3.68 L (3.80-5.40) m/uL Hgb (11.4-16.0) gm/dL Hct (34.0-46.0) % MCV (80.0-100.0) fL Neutrophils # 15.3 H (1.3-7.7) k/uL Lymphocytes # 0.6 L (1.0-4.8) k/uL Monocytes # (0-1.0) k/uL D-Dimer 1.83 H (<0.60) mg/L FEU Sodium 135 L (137-145) mmol/L BUN 20 H (7-17) mg/dL Glucose 258 H (74-99) mg/dL POC Glucose (mg/dL) (75-99) mg/dL Plasma Lactic Acid Jeevan (0.7-2.0) mmol/L Calcium (8.4-10.2) mg/dL Total Bilirubin 3.0 H (0.2-1.3) mg/dL AST 600 H (14-36) U/L ALT 284 H (4-34) U/L Alkaline Phosphatase 318 H (38-126) U/L Total Protein (6.3-8.2) g/dL Albumin (3.5-5.0) g/dL Ur Specific [place] (1.001-1.035) Urine Protein (Negative) Urine Glucose (UA) (Negative) Urine Ketones (Negative) Urine Blood (Negative) Urine Bilirubin (Negative) Ur Leukocyte Esterase (Negative) Urine WBC (0-5) /hpf Ur Squamous Epith Cells (0-4) /hpf Urine Mucus (None) /hpf 04/07/20 04/07/20 04/07/20 Range/Units 16:37 19:01 19:39 WBC (3.8-10.6) k/uL RBC (3.80-5.40) m/uL Hgb (11.4-16.0) gm/dL Hct (34.0-46.0) % MCV (80.0-100.0) fL Neutrophils # (1.3-7.7) k/uL Lymphocytes # (1.0-4.8) k/uL Monocytes # (0-1.0) k/uL D-Dimer (<0.60) mg/L FEU Sodium (137-145) mmol/L BUN (7-17) mg/dL Glucose (74-99) mg/dL POC Glucose (mg/dL) (75-99) mg/dL Plasma Lactic Acid Jeevan 3.0 H* 2.1 H* (0.7-2.0) mmol/L Calcium (8.4-10.2) mg/dL Total Bilirubin (0.2-1.3) mg/dL AST (14-36) U/L ALT (4-34) U/L Alkaline Phosphatase (38-126) U/L Total Protein (6.3-8.2) g/dL Albumin (3.5-5.0) g/dL Ur Specific [place] >1.050 H (1.001-1.035) Urine Protein 1+ H (Negative) Urine Glucose (UA) 4+ H (Negative) Urine Ketones 1+ H (Negative) Urine Blood Small H (Negative) Urine Bilirubin 1+ H (Negative) Ur Leukocyte Esterase Large H (Negative) Urine WBC 12 H (0-5) /hpf Ur Squamous Epith Cells 6 H (0-4) /hpf Urine Mucus Occasional H (None) /hpf 04/07/20 04/08/20 04/08/20 Range/Units 21:31 01:41 EST 06:05 WBC (3.8-10.6) k/uL RBC (3.80-5.40) m/uL Hgb (11.4-16.0) gm/dL Hct (34.0-46.0) % MCV (80.0-100.0) fL Neutrophils # (1.3-7.7) k/uL Lymphocytes # (1.0-4.8) k/uL Monocytes # (0-1.0) k/uL D-Dimer (<0.60) mg/L FEU Sodium (137-145) mmol/L BUN (7-17) mg/dL Glucose (74-99) mg/dL POC Glucose (mg/dL) 245 H 146 H 217 H (75-99) mg/dL Plasma Lactic Acid Jeevan (0.7-2.0) mmol/L Calcium (8.4-10.2) mg/dL Total Bilirubin (0.2-1.3) mg/dL AST (14-36) U/L ALT (4-34) U/L Alkaline Phosphatase (38-126) U/L Total Protein (6.3-8.2) g/dL Albumin (3.5-5.0) g/dL Ur Specific [place] (1.001-1.035) Urine Protein (Negative) Urine Glucose (UA) (Negative) Urine Ketones (Negative) Urine Blood (Negative) Urine Bilirubin (Negative) Ur Leukocyte Esterase (Negative) Urine WBC (0-5) /hpf Ur Squamous Epith Cells (0-4) /hpf Urine Mucus (None) /hpf 04/08/20 04/08/20 Range/Units 08:02 08:02 WBC 25.7 H (3.8-10.6) k/uL RBC 3.01 L (3.80-5.40) m/uL Hgb 9.7 L D (11.4-16.0) gm/dL Hct 30.4 L (34.0-46.0) % MCV 100.9 H (80.0-100.0) fL Neutrophils # 23.7 H (1.3-7.7) k/uL Lymphocytes # 0.6 L (1.0-4.8) k/uL Monocytes # 1.1 H (0-1.0) k/uL D-Dimer (<0.60) mg/L FEU Sodium (137-145) mmol/L BUN 23 H (7-17) mg/dL Glucose 230 H (74-99) mg/dL POC Glucose (mg/dL) (75-99) mg/dL Plasma Lactic Acid Jeevan (0.7-2.0) mmol/L Calcium 8.0 L (8.4-10.2) mg/dL Total Bilirubin 3.5 H (0.2-1.3) mg/dL AST 300 H (14-36) U/L ALT 237 H (4-34) U/L Alkaline Phosphatase 276 H (38-126) U/L Total Protein 5.3 L (6.3-8.2) g/dL Albumin 2.7 L (3.5-5.0) g/dL Ur Specific [place] (1.001-1.035) Urine Protein (Negative) Urine Glucose (UA) (Negative) Urine Ketones (Negative) Urine Blood (Negative) Urine Bilirubin (Negative) Ur Leukocyte Esterase (Negative) Urine WBC (0-5) /hpf Ur Squamous Epith Cells (0-4) /hpf Urine Mucus (None) /hpf Microbiology - Last 24 Hours (Table) 04/07/20 19:01 Urine Culture - Preliminary Urine,Voided Laboratory Results WBC 25.7 k/uL (3.8-10.6) H 04/08/20 08:02 RBC 3.01 m/uL (3.80-5.40) L 04/08/20 08:02 Hgb 9.7 gm/dL (11.4-16.0) L D 04/08/20 08:02 Hct 30.4 % (34.0-46.0) L 04/08/20 08:02 MCV 100.9 fL (80.0-100.0) H 04/08/20 08:02 MCH 32.1 pg (25.0-35.0) 04/08/20 08:02 MCHC 31.8 g/dL (31.0-37.0) 04/08/20 08:02 RDW 13.8 % (11.5-15.5) 04/08/20 08:02 Plt Count 191 k/uL (150-450) 04/08/20 08:02 Neutrophils % 92 % 04/08/20 08:02 Lymphocytes % 2 % 04/08/20 08:02 Monocytes % 4 % 04/08/20 08:02 Eosinophils % 0 % 04/08/20 08:02 Basophils % 0 % 04/08/20 08:02 Neutrophils # 23.7 k/uL (1.3-7.7) H 04/08/20 08:02 Lymphocytes # 0.6 k/uL (1.0-4.8) L 04/08/20 08:02 Monocytes # 1.1 k/uL (0-1.0) H 04/08/20 08:02 Eosinophils # 0.0 k/uL (0-0.7) 04/08/20 08:02 Basophils # 0.1 k/uL (0-0.2) 04/08/20 08:02 Hypochromasia Slight 04/08/20 08:02 Macrocytosis Slight 04/08/20 08:02 PT 10.8 sec (9.0-12.0) 04/07/20 16:28 INR 1.1 (<1.2) 04/07/20 16:28 D-Dimer 1.83 mg/L FEU (<0.60) H 04/07/20 16:28 Sodium 137 mmol/L (137-145) 04/08/20 08:02 Potassium 4.1 mmol/L (3.5-5.1) 04/08/20 08:02 Chloride 105 mmol/L (98-107) 04/08/20 08:02 Carbon Dioxide 24 mmol/L (22-30) 04/08/20 08:02 Anion Gap 8 mmol/L 04/08/20 08:02 BUN 23 mg/dL (7-17) H 04/08/20 08:02 Creatinine 0.85 mg/dL (0.52-1.04) 04/08/20 08:02 Est GFR (CKD-EPI)AfAm 78 (>60 ml/min/1.73 sqM) 04/08/20 08:02 Est GFR (CKD-EPI)NonAf 68 (>60 ml/min/1.73 sqM) 04/08/20 08:02 Glucose 230 mg/dL (74-99) H 04/08/20 08:02 POC Glucose (mg/dL) 194 mg/dL (75-99) H 04/08/20 12:03 POC Glu [employer]ware Engineer ID Maeve Deleon 04/08/20 12:03 Lactic Ac Sepsis Rflx Y 04/07/20 20:18 Plasma Lactic Acid Jeevan 1.8 mmol/L (0.7-2.0) 04/07/20 22:52 Calcium 8.0 mg/dL (8.4-10.2) L 04/08/20 08:02 Magnesium 1.9 mg/dL (1.6-2.3) 04/07/20 16:28 Total Bilirubin 3.5 mg/dL (0.2-1.3) H 04/08/20 08:02 AST 300 U/L (14-36) H 04/08/20 08:02 ALT 237 U/L (4-34) H 04/08/20 08:02 Alkaline Phosphatase 276 U/L (38-126) H 04/08/20 08:02 Troponin I <0.012 ng/mL (0.000-0.034) 04/07/20 16:28 Total Protein 5.3 g/dL (6.3-8.2) L 04/08/20 08:02 Albumin 2.7 g/dL (3.5-5.0) L 04/08/20 08:02 Lipase 25 U/L (23-300) 04/08/20 08:02 Urine Color Yellow 04/07/20 19: Urine Appearance Clear (Clear) 04/07/20 19: Urine pH 6.0 (5.0-8.0) 04/07/20 19:01 Ur Specific [place] >1.050 (1.001-1.035) H 04/07/20 19: Urine Protein 1+ (Negative) H 04/07/20 19: Urine Glucose (UA) 4+ (Negative) H 04/07/20 19: Urine Ketones 1+ (Negative) H 04/07/20 19: Urine Blood Small (Negative) H 04/07/20 19: Urine Nitrite Negative (Negative) 04/07/20 19: Urine Bilirubin 1+ (Negative) H 04/07/20 19: Urine Urobilinogen 4.0 mg/dL (<2.0) 04/07/20 19: Ur Leukocyte Esterase Large (Negative) H 04/07/20 19: Urine RBC 5 /hpf (0-5) 04/07/20 19: Urine WBC 12 /hpf (0-5) H 04/07/20 19: Ur Squamous Epith Cells 6 /hpf (0-4) H 04/07/20 19: Urine Mucus Occasional /hpf (None) H 04/07/20 19: Thrombosis Risk Factor Assmnt - DVT/VTE Prophylaxis DVT/VTE Prophylaxis: Pharmacologic Prophylaxis ordered, Mechanical Prophylaxis ordered - Choose All That Apply Each Factor Represents 1 point: Obesity (BMI >25) Each Risk Factor Represents 3 Points: Age 75 years or older Thrombosis Risk Factor Assessment Total Risk Factor Score: 4 Thrombosis Risk Factor Assessment Level: Moderate Risk Assessment and Plan Plan: 1. Acute cholecystitis with choledocholithiasis, and cholestatic jaundice as well as elevation of transaminase, patient will be seen by Dr. Dave and Dr. Bunn, plan for ERCP in the morning, currently on clear liquid diet. IV JOANNA hose antibiotics, 2. Elevation of transaminitis, monitor, patient is not on any statins prior to admission check hepatitis panel, 3. Diabetes mellitus type 2, on glimepiride, hold glimepiride at this time, NovoLog scale, check A1c 4. Acute bacteremia, gram-negative bacilli present prior to admission, on Zosyn, pending cultures, repeat blood cultures, patient is on IV fluids for hydration, 5. Sepsis with severe leukocytosis, related to the above GI abnormality, also with obstructive ascending cholangitis with Ricco pentad volume support IV fluids crystalline, at 1 30 mL an hour, and IV antibiotics, antiemetics, pain control 6. GI prophylaxis Protonix 7. DVT prophylaxis heparin subcu and 8. Cardiac clearance, patient denies any history of CAD, no CHF, no CVA creat at 0.85, non-insulin requiring, RCR I of 0, ASA risk of class III EKG urgent surgery abdominal surgery needed, reviewed EKG, normal sinus rhythm with an no acute ST-T wave change, no QT prolongation, heart rate 69 chest x-ray no acute pulmonary process expected length of stay 3 nights pending clearnce of septicimia/bacterimia Sepsis - Sepsis Sepsis Focused Exam #2 Sepsis Focused Exam Complete: Yes Vital Signs & RN Notes Reviewed: Yes Capillary Refill: < 2 Seconds: Fingers, Toes Skin Color: Normal for Patient Respiratory Exam: normal lung sounds Cardiovascular Exam: regular rate
--- NOTE | 2020-04-08 14:18 | P.GSCN ---
History of Present Illness Consult date: 04/08/20 History of present illness: CHIEF COMPLAINT: Abdominal pain HISTORY OF PRESENT ILLNESS: The patient is a 75-year-old female admitted with abnormal liver enzymes and incidental findings of cholecystitis. "I don't have any pain at all." She reports no previous episodes of abdominal pain. In fact, she is tolerating clear liquid diet. No current nausea or vomiting. No fevers or chills. General surgery is consulted for cholecystitis. She reports intentional weight loss. PAST MEDICAL HISTORY: See list and reviewed PAST SURGICAL HISTORY: See list and reviewed MEDICATIONS: See list and reviewed ALLERGIES: See list and reviewed SOCIAL HISTORY: See list and reviewed FAMILY HISTORY: See list and reviewed REVIEW OF ORGAN SYSTEMS: CONSTITUTIONAL: No fevers or chills. Has recent weight loss less than 10 pounds. EYES: Denies any trouble with vision. Wears glasses. HEENT: No difficulties with hearing. No nosebleeds. No difficulty swallowing. RESPIRATORY: Denies pneumonia. Denies any troubles with breathing or dyspnea on exertion. CARDIOVASCULAR: Denies any chest pain, palpitations, or recent heart attacks. GASTROINTESTINAL: Denies fatty food intolerance. Denies change in bowel habits and gas bloat. GENITOURINARY: Denies any blood in urine or increased urinary frequency. NEUROLOGICAL: Denies any numbness or tingling along the distal extremities. No seizure disorders or headaches. MUSCULOSKELETAL: Denies active back pain, stiffness or joint arthritis. SKIN: No current skin cancer. No rash. PSYCHIATRIC: Denies current depression or suicidal thoughts. ENDOCRINE: Denies current thyroid disorders. Has blood sugar glucose intole chica. HEME/LYMPHATIC: Denies any lumps and bumps around the neck. No recent deep venous thrombosis. ALLERGY/IMMUNOLOGY: No immunoglobulin therapy. No immune deficiencies. BREAST: Bilateral breast implants. PHYSICAL EXAM: VITALS: Reviewed CONSTITUTIONAL: Well developed and in no acute distress. EYES: Extraocular movements grossly intact. Wears glasses. HEAD, EARS, NOSE, THROAT: Moist buccal mucosa. Head is atraumatic, normocephalic. Hears conversational speech. No nasal drainage. NECK: Supple. No JV distention. No thyroidomegaly. RESPIRATORY: Non-labored respirations and equal bilateral excursions. No gross wheezes. CARDIOVASCULAR: Regular rate and rhythm. Palpable 2+ radial pulses. ABDOMEN: No peritonitis. Soft, nontender. LYMPH: No neck lymphadenopathy. MUSCULOSKELETAL: Nail and fingers with good capillary refill. SKIN: Warm and well perfused with good skin turgor. NEUROLOGIC: Cranial nerves II through XII grossly intact. Sensation upper and extremities intact. No focal or lateralizing signs. PSYCH: Appropriate affect. Alert and oriented to person, place and time. Displays appropriate insight. CLINCAL LABS: Reviewed. WBC elevated from 17,000-22,000. LFTs elevated AST ALT over 300 600 respectively. Total bilirubin elevated 3-3.5. IMAGING: Independently reviewed CT of the abdomen and pelvis demonstrates moderately dilated gallbladder. Ultrasound of the gallbladder independent review demonstrated moderate debris within the gallbladder. RADIOLOGY: Report reviewed was CT of the abdomen pelvis with findings of acute cholecystitis. EKG: Normal sinus rhythm ASSESSMENT: 1. Leukocytosis with acute cholecystitis 2. Hyperbilirubinemia for choledocholithiasis PLAN: 1. She denies abdominal pain however, her WBC has worsened including elevation of her total bilirubin. Agree with GI consultation regarding ERCP given clinical picture of choledocholithiasis. 2. Will need surgical intervention with cholecystectomy as liver enzymes improve and ERCP is completed. 3. Continue with clear liquid, low fat diet. 4. Recommend antibiotics for severe leukocytosis. 5. Benefits and risks of cholecystecotmy, surgical approach also described for robotic cholecystectomy following ERCP Thank you for this kind consultation. Past Medical History Past Medical History: Diabetes Mellitus Additional Past Medical History / Comment(s): HAS A PESSARY History of Any Multi-Drug Resistant Organisms: None Reported Past Surgical History: Tubal Ligation Additional Past Surgical History / Comment(s): EYE SX TODDLER Past Anesthesia/Blood Transfusion Reactions: No Reported Reaction Past Psychological History: No Psychological Hx Reported Smoking Status: Never smoker Past Alcohol Use History: Rare Past Drug Use History: None Reported - Past Family History Mother Family Medical History: No Reported History Father Family Medical History: No Reported History Brother(s) Family Medical History: Osteoarthritis (OA) Sister(s) Family Medical History: No Reported History Daughter(s) Family Medical History: No Reported History Son(s) Family Medical History: No Reported History Medications and Allergies Home Medications Medication Instructions Recorded Confirmed Type Glimepiride [Amaryl] 4 mg PO DAILY 04/07/20 04/07/20 History Allergies Allergy/AdvReac Type Severity Reaction Status Date / Time No Known Allergies Allergy Verified 04/07/20 19:27 Surgical - Exam Vital Signs Temp Pulse Resp BP Pulse Ox 97.8 F 73 18 132/58 97 04/07/20 15:50 04/07/20 15:50 04/07/20 15:50 04/07/20 15:50 04/07/20 15:50 Results - Labs 04/08/20 08:02 04/08/20 08:02 Abnormal Lab Results - Last 24 Hours (Table) 04/07/20 04/07/20 04/07/20 Range/Units 16:28 16:28 16:28 WBC 17.1 H (3.8-10.6) k/uL RBC 3.68 L (3.80-5.40) m/uL Hgb (11.4-16.0) gm/dL Hct (34.0-46.0) % MCV (80.0-100.0) fL Neutrophils # 15.3 H (1.3-7.7) k/uL Lymphocytes # 0.6 L (1.0-4.8) k/uL Monocytes # (0-1.0) k/uL D-Dimer 1.83 H (<0.60) mg/L FEU Sodium 135 L (137-145) mmol/L BUN 20 H (7-17) mg/dL Glucose 258 H (74-99) mg/dL POC Glucose (mg/dL) (75-99) mg/dL Plasma Lactic Acid Jeevan (0.7-2.0) mmol/L Calcium (8.4-10.2) mg/dL Total Bilirubin 3.0 H (0.2-1.3) mg/dL AST 600 H (14-36) U/L ALT 284 H (4-34) U/L Alkaline Phosphatase 318 H (38-126) U/L Total Protein (6.3-8.2) g/dL Albumin (3.5-5.0) g/dL Ur Specific [place] (1.001-1.035) Urine Protein (Negative) Urine Glucose (UA) (Negative) Urine Ketones (Negative) Urine Blood (Negative) Urine Bilirubin (Negative) Ur Leukocyte Esterase (Negative) Urine WBC (0-5) /hpf Ur Squamous Epith Cells (0-4) /hpf Urine Mucus (None) /hpf 04/07/20 04/07/20 04/07/20 Range/Units 16:37 19:01 19:39 WBC (3.8-10.6) k/uL RBC (3.80-5.40) m/uL Hgb (11.4-16.0) gm/dL Hct (34.0-46.0) % MCV (80.0-100.0) fL Neutrophils # (1.3-7.7) k/uL Lymphocytes # (1.0-4.8) k/uL Monocytes # (0-1.0) k/uL D-Dimer (<0.60) mg/L FEU Sodium (137-145) mmol/L BUN (7-17) mg/dL Glucose (74-99) mg/dL POC Glucose (mg/dL) (75-99) mg/dL Plasma Lactic Acid Jeevan 3.0 H* 2.1 H* (0.7-2.0) mmol/L Calcium (8.4-10.2) mg/dL Total Bilirubin (0.2-1.3) mg/dL AST (14-36) U/L ALT (4-34) U/L Alkaline Phosphatase (38-126) U/L Total Protein (6.3-8.2) g/dL Albumin (3.5-5.0) g/dL Ur Specific [place] >1.050 H (1.001-1.035) Urine Protein 1+ H (Negative) Urine Glucose (UA) 4+ H (Negative) Urine Ketones 1+ H (Negative) Urine Blood Small H (Negative) Urine Bilirubin 1+ H (Negative) Ur Leukocyte Esterase Large H (Negative) Urine WBC 12 H (0-5) /hpf Ur Squamous Epith Cells 6 H (0-4) /hpf Urine Mucus Occasional H (None) /hpf 04/07/20 04/08/20 04/08/20 Range/Units 21:31 01:41 EST 06:05 WBC (3.8-10.6) k/uL RBC (3.80-5.40) m/uL Hgb (11.4-16.0) gm/dL Hct (34.0-46.0) % MCV (80.0-100.0) fL Neutrophils # (1.3-7.7) k/uL Lymphocytes # (1.0-4.8) k/uL Monocytes # (0-1.0) k/uL D-Dimer (<0.60) mg/L FEU Sodium (137-145) mmol/L BUN (7-17) mg/dL Glucose (74-99) mg/dL POC Glucose (mg/dL) 245 H 146 H 217 H (75-99) mg/dL Plasma Lactic Acid Jeevan (0.7-2.0) mmol/L Calcium (8.4-10.2) mg/dL Total Bilirubin (0.2-1.3) mg/dL AST (14-36) U/L ALT (4-34) U/L Alkaline Phosphatase (38-126) U/L Total Protein (6.3-8.2) g/dL Albumin (3.5-5.0) g/dL Ur Specific [place] (1.001-1.035) Urine Protein (Negative) Urine Glucose (UA) (Negative) Urine Ketones (Negative) Urine Blood (Negative) Urine Bilirubin (Negative) Ur Leukocyte Esterase (Negative) Urine WBC (0-5) /hpf Ur Squamous Epith Cells (0-4) /hpf Urine Mucus (None) /hpf 04/08/20 04/08/20 Range/Units 08:02 08:02 WBC 25.7 H (3.8-10.6) k/uL RBC 3.01 L (3.80-5.40) m/uL Hgb 9.7 L D (11.4-16.0) gm/dL Hct 30.4 L (34.0-46.0) % MCV 100.9 H (80.0-100.0) fL Neutrophils # 23.7 H (1.3-7.7) k/uL Lymphocytes # 0.6 L (1.0-4.8) k/uL Monocytes # 1.1 H (0-1.0) k/uL D-Dimer (<0.60) mg/L FEU Sodium (137-145) mmol/L BUN 23 H (7-17) mg/dL Glucose 230 H (74-99) mg/dL POC Glucose (mg/dL) (75-99) mg/dL Plasma Lactic Acid Jeevan (0.7-2.0) mmol/L Calcium 8.0 L (8.4-10.2) mg/dL Total Bilirubin 3.5 H (0.2-1.3) mg/dL AST 300 H (14-36) U/L ALT 237 H (4-34) U/L Alkaline Phosphatase 276 H (38-126) U/L Total Protein 5.3 L (6.3-8.2) g/dL Albumin 2.7 L (3.5-5.0) g/dL Ur Specific [place] (1.001-1.035) Urine Protein (Negative) Urine Glucose (UA) (Negative) Urine Ketones (Negative) Urine Blood (Negative) Urine Bilirubin (Negative) Ur Leukocyte Esterase (Negative) Urine WBC (0-5) /hpf Ur Squamous Epith Cells (0-4) /hpf Urine Mucus (None) /hpf Microbiology - Last 24 Hours (Table) 04/07/20 19:35 Blood Culture Gram Stain - Preliminary Blood 04/07/20 19:35 Blood Culture - Final Blood 04/07/20 19:01 Urine Culture - Preliminary Urine,Voided Diabetes panel 04/07/20 04/08/20 Range/Units 16:28 08:02 Sodium 135 L 137 (137-145) mmol/L Potassium 4.2 4.1 (3.5-5.1) mmol/L Chloride 101 105 (98-107) mmol/L Carbon Dioxide 23 24 (22-30) mmol/L BUN 20 H 23 H (7-17) mg/dL Creatinine 0.75 0.85 (0.52-1.04) mg/dL Glucose 258 H 230 H (74-99) mg/dL Calcium 9.1 8.0 L (8.4-10.2) mg/dL AST 600 H 300 H (14-36) U/L ALT 284 H 237 H (4-34) U/L Alkaline Phosphatase 318 H 276 H (38-126) U/L Total Protein 6.8 5.3 L (6.3-8.2) g/dL Albumin 3.6 2.7 L (3.5-5.0) g/dL Calcium panel 04/07/20 04/08/20 Range/Units 16:28 08:02 Calcium 9.1 8.0 L (8.4-10.2) mg/dL Albumin 3.6 2.7 L (3.5-5.0) g/dL Pituitary panel 04/07/20 04/08/20 Range/Units 16:28 08:02 Sodium 135 L 137 (137-145) mmol/L Potassium 4.2 4.1 (3.5-5.1) mmol/L Chloride 101 105 (98-107) mmol/L Carbon Dioxide 23 24 (22-30) mmol/L BUN 20 H 23 H (7-17) mg/dL Creatinine 0.75 0.85 (0.52-1.04) mg/dL Glucose 258 H 230 H (74-99) mg/dL Calcium 9.1 8.0 L (8.4-10.2) mg/dL Adrenal panel 04/07/20 04/08/20 Range/Units 16:28 08:02 Sodium 135 L 137 (137-145) mmol/L Potassium 4.2 4.1 (3.5-5.1) mmol/L Chloride 101 105 (98-107) mmol/L Carbon Dioxide 23 24 (22-30) mmol/L BUN 20 H 23 H (7-17) mg/dL Creatinine 0.75 0.85 (0.52-1.04) mg/dL Glucose 258 H 230 H (74-99) mg/dL Calcium 9.1 8.0 L (8.4-10.2) mg/dL Total Bilirubin 3.0 H 3.5 H (0.2-1.3) mg/dL AST 600 H 300 H (14-36) U/L ALT 284 H 237 H (4-34) U/L Alkaline Phosphatase 318 H 276 H (38-126) U/L Total Protein 6.8 5.3 L (6.3-8.2) g/dL Albumin 3.6 2.7 L (3.5-5.0) g/dL Assessment and Plan (1) Acute cholecystitis Current Visit: Yes Status: Acute Code(s): K81.0 - ACUTE CHOLECYSTITIS SNOMED Code(s): 86063327 (2) Hyperbilirubinemia Current Visit: Yes Status: Acute Code(s): E80.6 - OTHER DISORDERS OF BILIRUBIN METABOLISM SNOMED Code(s): 80573136 (3) Diabetes type 2, uncontrolled Current Visit: Yes Status: Acute Code(s): E11.65 - TYPE 2 DIABETES MELLITUS WITH HYPERGLYCEMIA SNOMED Code(s): 219000298 (4) Lactic acidosis Current Visit: Yes Status: Acute Code(s): E87.2 - ACIDOSIS SNOMED Code(s): 54306817
[2020-04-08 17:13] LABS: Glucose,Whole Blood 123 mg/dL (75-99)
[2020-04-08 20:42] LABS: Glucose,Whole Blood 72 mg/dL (75-99)
[2020-04-08 23:22] LABS: Hemoglobin A1C 7.5 % (4.0-6.0)
[2020-04-09] MEDS: SODIUM CHLORIDE 0.9% 1,000 ML IV SCH ×4 (02:54→20:22)
[2020-04-09] MEDS: PIPERACILLIN-TAZOBACTAM 3.375 GM in SODIUM CHLORIDE 0.9% 100 ML IVPB SCH ×3 (03:23→20:22)
[2020-04-09 06:31] LABS: Glucose,Whole Blood 60 mg/dL (75-99)
[2020-04-09 06:33] LABS: Glucose,Whole Blood 60 mg/dL (75-99)
[2020-04-09] MEDS ORDERED: DEXTROSE 50% SYRINGE 50 ML IVP ONE (06:42)
[2020-04-09 06:52] LABS: Glucose,Whole Blood 195 mg/dL (75-99)
[2020-04-09] MEDS: INSULIN ASPART (NovoLOG) 100 UNIT/ML VIAL SQ SCH ×4 (07:13→20:39)
[2020-04-09 08:08] LABS: Basophils # (A) 0.1 k/uL (0-0.2); Basophils % (A) 1 %; Eosinophils # (A) 0.3 k/uL (0-0.7); Eosinophils % (A) 2 %; HCT 29.8 % (34.0-46.0); HGB 9.2 gm/dL (11.4-16.0); Hypochromasia Slight; Lymphocytes % (A) 8 %; MCH 31.4 pg (25.0-35.0); MCV 101.4 fL (80.0-100.0); Macrocytosis Slight; Mean Platelet Volume 8.3; Monocytes # (A) 0.7 k/uL (0-1.0); Monocytes % (A) 5 %; Neutrophils # (A) 10.8 k/uL (1.3-7.7); Neutrophils % (A) 84 %; Platelet Count 192 k/uL (150-450); RBC 2.94 m/uL (3.80-5.40)
[2020-04-09] MEDS: HEPARIN SODIUM,PORCINE 5,000 UNIT/ML 1 ML VIAL SQ SCH ×2 (08:31→20:22)
[2020-04-09] MEDS: PANTOPRAZOLE 40 MG/10 ML VIAL IV SCH (08:31)
[2020-04-09 08:33] LABS: Albumin 2.7 g/dL (3.5-5.0); Calcium 8.1 mg/dL (8.4-10.2); Potassium 3.7 mmol/L (3.5-5.1); Total Bilirubin 1.6 mg/dL (0.2-1.3); Total Protein 5.4 g/dL (6.3-8.2)
[2020-04-09] MEDS ORDERED: INDOMETHACIN 50MG SUPPOSITORY RECTAL ONE (11:00)
--- NOTE | 2020-04-09 11:26 | P.PN ---
Subjective Progress Note Date: 04/09/20 HISTORY OF PRESENT ILLNESS This 75-year-old pleasant female patient of Dr. Amaya. She has underlying history of diabetes mellitus type 2, otherwise healthy. Was seen in emergency room secondary to vague abdominal pain, off and on for the past 2 weeks, this has gotten worse over the past 1 week, accompanied by lightheadedness dizziness, fatigue no appetite, patient denies any fever no chills, pain is in the epigastric region 7 out of 10, nonradiating. Patient denies any urine discoloration or stool discoloration, no diarrhea, pain Once in the emergency room, liver function test was noted to be elevated, she slightly jaundice, bili of 3, AST of 600 ALT of 284, alkaline force of 380, ultrasound of the gallbladder showed distended large gallbladder with the previous filled gallbladder, common bile duct is 0.8 cm, common bile duct wall of 0.3 cm, consider cholecystitis, underlying mass any plasm the gallbladder is not excluded CAT scan of the abdomen and pelvis with contrast shows the gallbladder is distended, pancreas is atrophic, common bile duct somewhat promin ent, maybe small density at the neck of the gallbladder, some inflammatory change adjacent to the fundus of the gallbladder, correlate for acute cholecystitis. Patient was admitted, with cholecystitis with choledocholithiasis, acute jaundice, blood cultures are positive for gram- negative bacilli, patient's on IV Zosyn. Consult with Dr. Bunn, and Dr. Perez. 04/09: Patient is currently nothing by mouth but has been tolerating diet. No nausea or vomiting. No fever or chills. Patient currently does not have any abdominal pain. She has been seen by general surgery with plan for cholecyst ectomy as she improves. She has also been seen by GI and she is scheduled for ERCP this morning. She is currently on IV antibiotics in the form of Zosyn. Patient has had lab work improvement since yesterday with white count of 13, hemoglobin 9.2. Total bilirubin 1.6, AST 204, ALT 194, alkaline phosphatase 238. Hemoglobin A1c is 7.5. REVIEW OF SYSTEMS Constitutional: No fever, no chills, no night sweats. No weight change. Reports generalized fatigue. EENT: No headache. No blurred vision or double vision, no loss of vision. Lungs: No shortness of breath, cough, no sputum production. No wheezing. Cardiovascular: No chest pain, no lower extremity edema. No palpitations. No paroxysmal nocturnal dyspnea. No orthopnea. No lightheadedness or dizziness. No syncopal episodes. Abdominal: No abdominal pain at time of evaluation. No nausea, vomiting. No diarrhea. No constipation. No bloody or tarry stools. No loss of appetite. Genitourinary: No dysuria, increased frequency, urgency. No urinary retention. Musculoskeletal: No myalgias. No muscle weakness, no gait dysfunction, no frequent falls. No back pain. No neck pain. Integumentary: No wounds, no lesions. No rash or pruritus. No unusual bruising. No change in hair or nails. Neurologic: No aphasia. No facial droop. Mild confusion. No head injury. No headache. No paralysis. No paresthesia. Psychiatric: No depression. No anxiety. No mood swings. Endocrine: No abnormal blood sugars. No weight change. No excessive sweating or thirst. No cold intolerance. PHYSICAL EXAMINATION Gen: This is [ ] HEENT: Head is atraumatic, normocephalic. Pupils equal, round. Sclerae is anicteric. NECK: Supple. No JVD. No lymphadenopathy. No thyromegaly. LUNGS: Clear to auscultation. No wheezes or rhonchi. No intercostal retractions. HEART: Regular rate and rhythm. No murmur. ABDOMEN: Soft. Bowel sounds are present. No masses. No tenderness. EXTREMITIES: No pedal edema. No calf tenderness. NEUROLOGICAL: Patient is awake, alert and oriented x3. Cranial nerves 2 through 12 are grossly intact. ASSESSMENT AND PLAN 1. 1. Acute cholecystitis with choledocholithiasis, and cholestatic jaundice as well as elevation of transaminase, patient will be seen by Dr. Dave and Dr. Bunn, plan for ERCP in the morning, currently on clear liquid diet. IV JOANNA hose antibiotics. 2. Diabetes mellitus type 2. Hold glimepiride. Continue NovoLog scale. Hemoglobin A1c 7.5. Patient has been hypoglycemic. 3. Acute bacteremia secondary to ascending cholecystitis. Continue Zosyn. 4. Sepsis with gram-negative bacteremia. Continue to monitor lab work closely and await blood culture finalization. 5. GI prophylaxis. Protonix. 6. DVT prophylaxis. Heparin subcu. Patient will be admitted to the hospital for a minimum of 2 night stay. Patient changed to inpatient. DISCHARGE PLAN Possibly return home, to be determined. Impression and plan of care have been directed as dictated by the signing physician. Keyla Montiel nurse practitioner acting as scribe for signing physician. Objective - Vital Signs Vital signs: Vital Signs Temp 97.6 F 04/09/20 03:00 Pulse 73 04/09/20 03:00 Resp 17 04/09/20 03:00 BP 102/62 04/09/20 03:00 Pulse Ox 94 L 04/09/20 03:00 Intake & Output 04/08/20 04/09/20 04/09/20 18:59 06:59 18:59 Intake Total 1890 Balance 1890 Intake: Intake, IV Titration 1640 Amount Sodium Chloride 0.9% 1, 1040 000 ml @ 130 mls/hr IV . [id number] MAURICIO Rx#:[id number] Sodium Chloride 0.9% 1, 600 000 ml @ 75 mls/hr IV . [id number] Rx#:[id number] Oral 250 Other: # Voids 1 2 - Labs CBC & Chem 7: 04/09/20 07:25 04/09/20 07:25 Labs: Abnormal Lab Results - Last 24 Hours (Table) 04/08/20 04/08/20 04/08/20 Range/Units 08:02 08:02 08:02 WBC 25.7 H (3.8-10.6) k/uL RBC 3.01 L (3.80-5.40) m/uL Hgb 9.7 L D (11.4-16.0) gm/dL Hct 30.4 L (34.0-46.0) % MCV 100.9 H (80.0-100.0) fL Neutrophils # 23.7 H (1.3-7.7) k/uL Lymphocytes # 0.6 L (1.0-4.8) k/uL Monocytes # 1.1 H (0-1.0) k/uL Chloride (98-107) mmol/L BUN 23 H (7-17) mg/dL Glucose 230 H (74-99) mg/dL POC Glucose (mg/dL) (75-99) mg/dL Hemoglobin A1c 7.5 H (4.0-6.0) % Calcium 8.0 L (8.4-10.2) mg/dL Total Bilirubin 3.5 H (0.2-1.3) mg/dL AST 300 H (14-36) U/L ALT 237 H (4-34) U/L Alkaline Phosphatase 276 H (38-126) U/L Total Protein 5.3 L (6.3-8.2) g/dL Albumin 2.7 L (3.5-5.0) g/dL 04/08/20 04/08/20 04/08/20 Range/Units 12:03 17:12 20:41 WBC (3.8-10.6) k/uL RBC (3.80-5.40) m/uL Hgb (11.4-16.0) gm/dL Hct (34.0-46.0) % MCV (80.0-100.0) fL Neutrophils # (1.3-7.7) k/uL Lymphocytes # (1.0-4.8) k/uL Monocytes # (0-1.0) k/uL Chloride (98-107) mmol/L BUN (7-17) mg/dL Glucose (74-99) mg/dL POC Glucose (mg/dL) 194 H 123 H 72 L (75-99) mg/dL Hemoglobin A1c (4.0-6.0) % Calcium (8.4-10.2) mg/dL Total Bilirubin (0.2-1.3) mg/dL AST (14-36) U/L ALT (4-34) U/L Alkaline Phosphatase (38-126) U/L Total Protein (6.3-8.2) g/dL Albumin (3.5-5.0) g/dL 04/09/20 04/09/20 04/09/20 Range/Units 06:29 06:31 06:50 WBC (3.8-10.6) k/uL RBC (3.80-5.40) m/uL Hgb (11.4-16.0) gm/dL Hct (34.0-46.0) % MCV (80.0-100.0) fL Neutrophils # (1.3-7.7) k/uL Lymphocytes # (1.0-4.8) k/uL Monocytes # (0-1.0) k/uL Chloride (98-107) mmol/L BUN (7-17) mg/dL Glucose (74-99) mg/dL POC Glucose (mg/dL) 60 L 60 L 195 H (75-99) mg/dL Hemoglobin A1c (4.0-6.0) % Calcium (8.4-10.2) mg/dL Total Bilirubin (0.2-1.3) mg/dL AST (14-36) U/L ALT (4-34) U/L Alkaline Phosphatase (38-126) U/L Total Protein (6.3-8.2) g/dL Albumin (3.5-5.0) g/dL 04/09/20 04/09/20 Range/Units 07:25 07:25 WBC 13.0 H (3.8-10.6) k/uL RBC 2.94 L (3.80-5.40) m/uL Hgb 9.2 L (11.4-16.0) gm/dL Hct 29.8 L (34.0-46.0) % MCV 101.4 H (80.0-100.0) fL Neutrophils # 10.8 H (1.3-7.7) k/uL Lymphocytes # (1.0-4.8) k/uL Monocytes # (0-1.0) k/uL Chloride 109 H (98-107) mmol/L BUN 20 H (7-17) mg/dL Glucose 113 H (74-99) mg/dL POC Glucose (mg/dL) (75-99) mg/dL Hemoglobin A1c (4.0-6.0) % Calcium 8.1 L (8.4-10.2) mg/dL Total Bilirubin 1.6 H (0.2-1.3) mg/dL AST 204 H (14-36) U/L ALT 194 H (4-34) U/L Alkaline Phosphatase 234 H (38-126) U/L Total Protein 5.4 L (6.3-8.2) g/dL Albumin 2.7 L (3.5-5.0) g/dL Microbiology - Last 24 Hours (Table) 04/07/20 19:35 Blood Culture Gram Stain - Preliminary Blood 04/07/20 19:01 Urine Culture - Final Urine,Voided 04/07/20 19:35 Blood Culture - Final Blood
[2020-04-09 11:32] LABS: Glucose,Whole Blood 90 mg/dL (75-99)
--- NOTE | 2020-04-09 13:18 | P.PN ---
<Lynette Limon - Last Filed: 04/09/20 13:14> Subjective Progress Note Date: 04/09/20 CHIEF COMPLAINT: Abdominal pain HISTORY OF PRESENT ILLNESS: The patient is a 75-year-old female admitted with abnormal liver enzymes and incidental findings of cholecystitis. Patient is scheduled for ERCP today. She is afebrile. Her WBC has come down from 25.7- 13.0, Total bili 3.5 down to 1.6, AST 300-204, ALT 237-194, alk phos 276-234 PHYSICAL EXAM: VITAL SIGNS: Reviewed GENERAL: Well-developed in no acute distress. HEENT: No sclera icterus. Extraocular movements grossly intact. Moist buccal mucosa. Head is atraumatic, normocephalic. Hears conversational speech. No nasal drainage. NECK: Supple without lymphadenopathy. CHEST: Non-labored respirations and equal bilateral excursions. CARDIOVASCULAR: Regular rate with regular rhythm. Palpable 2+ radial pulses. ABDOMEN: Soft. Nondistended. Nontender. MUSCULOSKELETAL: No clubbing or cyanosis. NEUROLOGIC: No focal or lateralizing signs. Cranial nerves II through XII grossly intact. PSYCH: Appropriate affect. Alert and oriented to person, place and time. SKIN: Well perfused. Good skin turgor. ASSESSMENT: 1. Leukocytosis with acute cholecystitis 2. Hyperbilirubinemia for choledocholithiasis PLAN: -GI service is planning on proceeding with ERCP today -continue antibiotics -Will need surgical intervention with cholecystectomy as liver enzymes improve and ERCP is completed. Physician Photo Technician note has been reviewed by physician. Signing provider agrees with the documented findings, assessment, and plan of care. Objective - Vital Signs Vital signs: Vital Signs Temp 98.1 F 04/09/20 09:00 Pulse 57 L 04/09/20 09:00 Resp 18 04/09/20 09:00 BP 104/63 04/09/20 09:00 Pulse Ox 96 04/09/20 09:00 Intake & Output 04/08/20 04/09/20 04/09/20 18:59 06:59 18:59 Intake Total 1890 Balance 1890 Intake: Intake, IV Titration 1640 Amount Sodium Chloride 0.9% 1, 1040 000 ml @ 130 mls/hr IV . Q7H42M [facility], [facility]–1983 Rx#:[id number] Sodium Chloride 0.9% 1, 600 000 ml @ 75 mls/hr IV . [id number] [facility] Rx#:[id number] Oral 250 Other: # Voids 1 2 - Labs CBC & Chem 7: 04/09/20 07:25 04/09/20 07:25 Labs: Abnormal Lab Results - Last 24 Hours (Table) 04/08/20 04/08/20 04/08/20 Range/Units 08:02 17:12 20:41 WBC (3.8-10.6) k/uL RBC (3.80-5.40) m/uL Hgb (11.4-16.0) gm/dL Hct (34.0-46.0) % MCV (80.0-100.0) fL Neutrophils # (1.3-7.7) k/uL Chloride (98-107) mmol/L BUN (7-17) mg/dL Glucose (74-99) mg/dL POC Glucose (mg/dL) 123 H 72 L (75-99) mg/dL Hemoglobin A1c 7.5 H (4.0-6.0) % Calcium (8.4-10.2) mg/dL Total Bilirubin (0.2-1.3) mg/dL AST (14-36) U/L ALT (4-34) U/L Alkaline Phosphatase (38-126) U/L Total Protein (6.3-8.2) g/dL Albumin (3.5-5.0) g/dL 04/09/20 04/09/20 04/09/20 Range/Units 06:29 06:31 06:50 WBC (3.8-10.6) k/uL RBC (3.80-5.40) m/uL Hgb (11.4-16.0) gm/dL Hct (34.0-46.0) % MCV (80.0-100.0) fL Neutrophils # (1.3-7.7) k/uL Chloride (98-107) mmol/L BUN (7-17) mg/dL Glucose (74-99) mg/dL POC Glucose (mg/dL) 60 L 60 L 195 H (75-99) mg/dL Hemoglobin A1c (4.0-6.0) % Calcium (8.4-10.2) mg/dL Total Bilirubin (0.2-1.3) mg/dL AST (14-36) U/L ALT (4-34) U/L Alkaline Phosphatase (38-126) U/L Total Protein (6.3-8.2) g/dL Albumin (3.5-5.0) g/dL 04/09/20 04/09/20 Range/Units 07:25 07:25 WBC 13.0 H (3.8-10.6) k/uL RBC 2.94 L (3.80-5.40) m/uL Hgb 9.2 L (11.4-16.0) gm/dL Hct 29.8 L (34.0-46.0) % MCV 101.4 H (80.0-100.0) fL Neutrophils # 10.8 H (1.3-7.7) k/uL Chloride 109 H (98-107) mmol/L BUN 20 H (7-17) mg/dL Glucose 113 H (74-99) mg/dL POC Glucose (mg/dL) (75-99) mg/dL Hemoglobin A1c (4.0-6.0) % Calcium 8.1 L (8.4-10.2) mg/dL Total Bilirubin 1.6 H (0.2-1.3) mg/dL AST 204 H (14-36) U/L ALT 194 H (4-34) U/L Alkaline Phosphatase 234 H (38-126) U/L Total Protein 5.4 L (6.3-8.2) g/dL Albumin 2.7 L (3.5-5.0) g/dL Microbiology - Last 24 Hours (Table) 04/07/20 19:35 Blood Culture Gram Stain - Preliminary Blood Blood Culture - Preliminary Gram Neg Bacilli 04/07/20 19:01 Urine Culture - Final Urine,Voided 04/07/20 19:35 Blood Culture - Final Blood <Rachael Perez N - Last Filed: 04/17/20 06:10> Subjective As above. Patient seen and evaluated with above. Please see additional documentation below. HISTORY OF PRESENT ILLNESS: The patient is a 75-year-old female admitted with abnormal liver enzymes and incidental findings of cholecystitis. She denies any abdominal pain. Liver enzymes are elevated however improving. No reports of nausea or vomiting. REVIEW OF ORGAN SYSTEMS: No fevers or chills. No chest pain. No productive sputum. PHYSICAL EXAM: VITALS: Reviewed CONSTITUTIONAL: Well developed and in no acute distress. EYES: Extraocular movements grossly intact. Wears glasses. HEAD, EARS, NOSE, THROAT: Moist buccal mucosa. Head is atraumatic, normocephalic. Hears conversational speech. No nasal drainage. Wears glasses. NECK: No JV distention. RESPIRATORY: Non-labored respirations and equal bilateral excursions. No gross wheezes. CARDIOVASCULAR: Regular rate and rhythm. Palpable 2+ radial pulses. ABDOMEN: Soft, nontender. MUSCULOSKELETAL: Having cyanosis or edema. SKIN: Warm and well perfused with good skin turgor. NEUROLOGIC: Cranial nerves II through XII grossly intact. No focal or lateralizing signs. PSYCH: Appropriate affect. Alert and oriented to person. CLINCAL LABS: Reviewed. WBC was elevated over 25,000 down to 13,000. Hemoglobin down 11.7-9.7, 9.2. Total bilirubin down 3.5-1.6 ASSESSMENT: 1. Leukocytosis with acute cholecystitis 2. Hyperbilirubinemia for choledocholithiasis PLAN: 1. At this time, patient's pending ERCP. 2. Will follow LFTs. 3. May need surgical intervention pending improvement of LFTs and following ERCP 4. Continue IV antibiotics Objective - Vital Signs Vital signs: Vital Signs Temp 98.1 F 04/17/20 02:37 Pulse 65 04/17/20 02:37 Resp 18 04/17/20 02:37 BP 135/75 04/17/20 02:37 Pulse Ox 93 L 04/17/20 02:37 Intake & Output 04/16/20 04/16/20 04/17/20 06:59 18:59 06:59 Output Total 120 105 30 Balance -120 -105 -30 Weight 70.307 kg Output: Drainage 120 105 30 Abdomen 120 105 30 Other: Voiding Method Toilet Toilet Toilet # Voids 2 1 - Labs CBC & Chem 7: 04/16/20 11:11 04/16/20 11:11 Labs: Abnormal Lab Results - Last 24 Hours (Table) 04/16/20 04/16/20 04/16/20 Range/Units 06:10 11:11 11:11 WBC 12.9 H (3.8-10.6) k/uL RBC 3.33 L (3.80-5.40) m/uL Hgb 10.2 L (11.4-16.0) gm/dL Hct 32.6 L (34.0-46.0) % Neutrophils # (Manual) 10.00 H (1.3-7.7) k/uL Lymphocytes # (Manual) 0.77 L (1.0-4.8) k/uL Monocytes # (Manual) 1.81 H (0-1.0) k/uL Metamyelocytes # (Man) 0.13 H (0) k/uL Myelocytes # (Manual) 0.13 H (0) k/uL Potassium 3.0 L (3.5-5.1) mmol/L Glucose 132 H (74-99) mg/dL POC Glucose (mg/dL) 106 H (75-99) mg/dL Calcium 7.7 L (8.4-10.2) mg/dL Total Bilirubin 1.5 H (0.2-1.3) mg/dL Alkaline Phosphatase 193 H (38-126) U/L Total Protein 5.2 L (6.3-8.2) g/dL Albumin 2.7 L (3.5-5.0) g/dL 04/16/20 04/16/20 04/16/20 Range/Units 11:41 16:31 21:21 WBC (3.8-10.6) k/uL RBC (3.80-5.40) m/uL Hgb (11.4-16.0) gm/dL Hct (34.0-46.0) % Neutrophils # (Manual) (1.3-7.7) k/uL Lymphocytes # (Manual) (1.0-4.8) k/uL Monocytes # (Manual) (0-1.0) k/uL Metamyelocytes # (Man) (0) k/uL Myelocytes # (Manual) (0) k/uL Potassium (3.5-5.1) mmol/L Glucose (74-99) mg/dL POC Glucose (mg/dL) 139 H 122 H 119 H (75-99) mg/dL Calcium (8.4-10.2) mg/dL Total Bilirubin (0.2-1.3) mg/dL Alkaline Phosphatase (38-126) U/L Total Protein (6.3-8.2) g/dL Albumin (3.5-5.0) g/dL Assessment and Plan (1) Acute cholecystitis Current Visit: Yes Status: Acute Code(s): K81.0 - ACUTE CHOLECYSTITIS SNOMED Code(s): 41231943 (2) Hyperbilirubinemia Current Visit: Yes Status: Acute Code(s): E80.6 - OTHER DISORDERS OF BILIRUBIN METABOLISM SNOMED Code(s): 92871500 (3) Diabetes type 2, uncontrolled Current Visit: Yes Status: Acute Code(s): E11.65 - TYPE 2 DIABETES MELLITUS WITH HYPERGLYCEMIA SNOMED Code(s): 842289823 (4) Lactic acidosis Current Visit: Yes Status: Acute Code(s): E87.2 - ACIDOSIS SNOMED Code(s): 70055154
[2020-04-09 13:37] LABS: Glucose,Whole Blood 86 mg/dL (75-99)
[2020-04-09] MEDS ORDERED: IV FLUID CONTINUATION 700 ML IV ONE (13:38)
[2020-04-09] MEDS ORDERED: [UNRECOGNIZED DRUG - REMARK] IV ONE (13:39)
[2020-04-09] MEDS ORDERED: INDOCYANINE GREEN 25 MG VIAL IV ONE (14:00)
[2020-04-09] MEDS ORDERED: fentaNYL (PF) 50 MCG/ML 2 ML AMP ONE (14:13)
[2020-04-09] MEDS ORDERED: SUCCINYLCHOLINE CHLORIDE 100 MG/5 ML SYR IV ONE (14:13)
[2020-04-09] MEDS ORDERED: LIDOCAINE 1% INJ 10MG/ML (20 ML MDV) ONE (14:13)
[2020-04-09] MEDS ORDERED: PHENYLEPHRINE-0.9% NACL SYG 1 MG/10 ML SYRINGE ONE (14:13)
[2020-04-09] MEDS ORDERED: PROPOFOL 10 MG/ML 20 ML VIAL IV ONE (14:13)
[2020-04-09] MEDS ORDERED: MIDAZOLAM 2 MG/2 ML VIAL ONE (14:13)
[2020-04-09] MEDS ORDERED: SODIUM CHLORIDE 0.9% 500 ML IV ONE (15:37)
--- NOTE | 2020-04-09 15:51 | P.PCN ---
Date of Procedure: 04/09/20 Description of Procedure: Brief history: Patient is a 75-year-old female who was admitted to the hospital due to chest and abdominal pain. The patient was found to have elevation in her bilirubin at 3 with AST 600 and ALT 284 and alkaline phosphatase 380. Ultrasound showed evidence of debris in the gallbladder with a large debris-filled gallbladder and cholecystitis not entirely excluded. There was some CBD dilation. Patient has been treated with antibiotic therapy with improved symptoms. Procedure performed: ERCP failed/aborted Preoperative diagnoses: Elevated bilirubin, abdominal pain, CBD dilation, suspected choledocholithiasis IV sedation per anesthesia Estimated blood loss: Minimal. Procedure: After informed consent was obtained from the patient and after the risks benefits and complications including bleeding perforation and pancreatitis explained in detail the patient was brought into the endoscopy unit. The patient was placed in prone position and IV conscious sedation was administered by anesthesia under continuous monitoring. The Olympus side-viewing duoden oscope was then inserted into the mouth and esophagus intubated without any difficulty. The scope was gradually advanced into the stomach and duodenum. The major papilla was identified without any difficulty and diverticula more also noted in the duodenum. Multiple attempts at cannulating the papilla were unsuccessful with suspicion for a stenotic papilla.. ERCP was aborted and the patient tolerated the procedure well. Impression: Failed/aborted ERCP with suspicion for a stenotic papilla. Recommendations: The findings of this examination were discussed with the patient. Okay to resume full liquid diet. Plan is for cholecystectomy on . We'll continue to monitor LFTs and symptomatically, if LFTs remain elevated patient may require follow-up with tertiary center either as a transfer or after discharge for ERCP with advanced endoscopist. Consider MRCP in the interim for evaluation of CBD.
--- NOTE | 2020-04-09 15:55 | FL ---
EXAMINATION TYPE: FL ERCP DATE OF EXAM: 04/09/2020 CLINICAL HISTORY: Abdominal and pelvic pain. TECHNIQUE: Fluoroscopy. COMPARISON: CT abdomen and pelvis 2 days ago. FINDINGS: Fluoroscopic guidance was provided during ERCP procedure performed by Dr. Grahma. A tota l of 4 seconds of fluoroscopic time was utilized during the procedure and 1 spot images was acquired. Please refer to procedure note for further details. IMPRESSION: As Above.
[2020-04-09 16:37] LABS: Glucose,Whole Blood 128 mg/dL (75-99)
[2020-04-09 17:02] LABS: Glucose,Whole Blood 124 mg/dL (75-99)
[2020-04-09 20:28] LABS: Glucose,Whole Blood 156 mg/dL (75-99)
[2020-04-10] MEDS: PIPERACILLIN-TAZOBACTAM 3.375 GM in SODIUM CHLORIDE 0.9% 100 ML IVPB SCH ×3 (04:57→20:36)
[2020-04-10] MEDS: SODIUM CHLORIDE 0.9% 1,000 ML IV SCH ×2 (04:57→17:00)
[2020-04-10 06:30] LABS: Glucose,Whole Blood 89 mg/dL (75-99)
[2020-04-10] MEDS: INSULIN ASPART (NovoLOG) 100 UNIT/ML VIAL SQ SCH ×4 (06:38→22:40)
[2020-04-10] MEDS: PANTOPRAZOLE 40 MG/10 ML VIAL IV SCH (07:31)
[2020-04-10 08:49] LABS: HCT 31.7 % (34.0-46.0); HGB 9.6 gm/dL (11.4-16.0); Hypochromasia Moderate; MCH 31.2 pg (25.0-35.0); MCHC 30.5 g/dL (31.0-37.0); MCV 102.4 fL (80.0-100.0); Macrocytosis Slight; Platelet Count 207 k/uL (150-450); RBC 3.09 m/uL (3.80-5.40); RDW 14.7 % (11.5-15.5); WBC 8.7 k/uL (3.8-10.6)
[2020-04-10 08:51] LABS: Albumin 2.8 g/dL (3.5-5.0); Calcium 7.8 mg/dL (8.4-10.2); Total Bilirubin 1.1 mg/dL (0.2-1.3); Total Protein 5.6 g/dL (6.3-8.2)
[2020-04-10 10:51] LABS: Band Neutrophils % 1 %; Basophils # (M) 0.09 k/uL (0-0.2); Eosinophils # (M) 0.17 k/uL (0-0.7); Lymphocytes # (M) 1.39 k/uL (1.0-4.8); Metamyelocytes # (M) 0.17 k/uL (0); Metamyelocytes % 2 %; Monocytes # (M) 0.78 k/uL (0-1.0); Myelocytes # (M) 0.26 k/uL (0); Myelocytes % 3 %; Neutrophils % (M) 68 %; Nucleated Red Blood Cells 0 /100 WBC (0-0); Total Cells Counted 200
[2020-04-10 10:52] LABS: Poikilocytosis (M) Present
[2020-04-10] MEDS: HEPARIN SODIUM,PORCINE 5,000 UNIT/ML 1 ML VIAL SQ SCH ×2 (11:24→20:38)
[2020-04-10 11:31] LABS: Glucose,Whole Blood 89 mg/dL (75-99)
[2020-04-10] MEDS: ACETAMINOPHEN TAB 325 MG TAB PO PRN (11:55)
--- NOTE | 2020-04-10 12:07 | MR ---
MRCP HISTORY: Common bile duct dilation Correlation to CT scan 04/07/2020 Multiplanar multisequence imaging through the biliary system with three-dimensional reconstructions t hrough the biliary system There is been interval decompression of the gallbladder. There is a persistent dilation of the common bile duct. Coronal image 12 of the T2 data set shows 2 small filling defects likely within the gallb ladder neck region. Persistent thickening of the gallbladder wall is suspected, reactive signal grullon e is suspected within the surrounding liver. No definite filling defect within the common bile duct. Pancreatic duct is mildly conspicuous. Small focus of hyperintensity present adjacent to the common b ile duct within the body the pancreas measures only approximately 6 mm. Possible duodenal diverticula present at the second, third and fourth portion. IMPRESSION: Findings compatible with interval sphincterotomy. Findings within the gallbladder likely residua from previous abnormalities described on CT. Probable cholelithiasis. No evident common duct or proper hepatic duct stone. Small site of T2 hyperintensity within the pancreas, IPMN within the di fferential, follow-up suggested
[2020-04-10] MEDS: HYDROmorphone 1 MG/ML 1 ML SYRINGE IVP PRN (13:08)
--- NOTE | 2020-04-10 14:51 | P.PN ---
<CatalinareubenLynette - Last Filed: 04/10/20 14:46> Subjective Progress Note Date: 04/10/20 CHIEF COMPLAINT: Abdominal pain HISTORY OF PRESENT ILLNESS: The patient is a 75-year-old female admitted with abnormal liver enzymes and incidental findings of cholecystitis. Patient was scheduled for ERCP yesterday but procedure had to be aborted. MRCP was completed Findings compatible with interval sphincterotomy. Findings of the gallbladder likely from previous abnormalities noted on CT. Probable cholelithiasis. No evidence common duct or proper hepatic duct stone. Small site of T2 hyperintensity within the pancreas. Patient afebrile. WBC 8.7 total bili 1.1 LFTs are trending down. Lipase 56. She does report epigastric and left upper quadrant tenderness. PHYSICAL EXAM: VITAL SIGNS: Reviewed GENERAL: Well-developed in no acute distress. HEENT: No sclera icterus. Extraocular movements grossly intact. Moist buccal mucosa. Head is atraumatic, normocephalic. Hears conversational speech. No nasal drainage. NECK: Supple without lymphadenopathy. CHEST: Non-labored respirations and equal bilateral excursions. CARDIOVASCULAR: Regular rate with regular rhythm. Palpable 2+ radial pulses. ABDOMEN: Soft. Nondistended. Tenderness with palpation of the epigastric area and left upper quadrant MUSCULOSKELETAL: No clubbing or cyanosis. NEUROLOGIC: No focal or lateralizing signs. Cranial nerves II through XII grossly intact. PSYCH: Appropriate affect. Alert and oriented to person, place and time. SKIN: Well perfused. Good skin turgor. ASSESSMENT: 1. Leukocytosis with acute cholecystitis 2. Hyperbilirubinemia for choledocholithiasis PLAN: -continue antibiotics -Continue clear liquid diet -Continue IV fluids -Will need surgical intervention with cholecystectomy as liver enzymes improve. Cholecystectomy tentatively planned for , 04/12/[address] Perez Physician Ceramic Capacitor Processor note has been reviewed by physician. Signing provider agrees with the documented findings, assessment, and plan of care. Objective - Vital Signs Vital signs: Vital Signs Temp 98.2 F 04/10/20 14:31 Pulse 56 L 04/10/20 14:31 Resp 16 04/10/20 14:31 BP 104/51 04/10/20 14:31 Pulse Ox 98 04/10/20 14:31 Intake & Output 04/09/20 04/10/20 04/10/20 18:59 06:59 18:59 Intake Total 300 880 Balance 300 880 Intake: IV 200 Intake, IV Titration 880 Amount Piperacillin-Tazobactam 3 100 .375 gm In Sodium Chloride 0.9% 100 ml @ 200 mls/hr IVPB Q8H [facility] Rx#:[id number] Sodium Chloride 0.9% 1, 780 000 ml @ 130 mls/hr IV . Q7H42M [facility] Rx#:[id number] Other 100 Other: Voiding Method Toilet # Voids 1 2 - Labs CBC & Chem 7: 04/10/20 07:31 04/10/20 07:31 Labs: Abnormal Lab Results - Last 24 Hours (Table) 04/09/20 04/09/20 04/09/20 Range/Units 16:36 16:59 20:27 RBC (3.80-5.40) m/uL Hgb (11.4-16.0) gm/dL Hct (34.0-46.0) % MCV (80.0-100.0) fL MCHC (31.0-37.0) g/dL Metamyelocytes # (Man) (0) k/uL Myelocytes # (Manual) (0) k/uL Chloride (98-107) mmol/L Carbon Dioxide (22-30) mmol/L BUN (7-17) mg/dL POC Glucose (mg/dL) 128 H 124 H 156 H (75-99) mg/dL Calcium (8.4-10.2) mg/dL AST (14-36) U/L ALT (4-34) U/L Alkaline Phosphatase (38-126) U/L Total Protein (6.3-8.2) g/dL Albumin (3.5-5.0) g/dL 04/10/20 04/10/20 Range/Units 07:31 07:31 RBC 3.09 L (3.80-5.40) m/uL Hgb 9.6 L (11.4-16.0) gm/dL Hct 31.7 L (34.0-46.0) % MCV 102.4 H (80.0-100.0) fL MCHC 30.5 L (31.0-37.0) g/dL Metamyelocytes # (Man) 0.17 H (0) k/uL Myelocytes # (Manual) 0.26 H (0) k/uL Chloride 112 H (98-107) mmol/L Carbon Dioxide 20 L (22-30) mmol/L BUN 22 H (7-17) mg/dL POC Glucose (mg/dL) (75-99) mg/dL Calcium 7.8 L (8.4-10.2) mg/dL AST 79 H (14-36) U/L ALT 133 H (4-34) U/L Alkaline Phosphatase 215 H (38-126) U/L Total Protein 5.6 L (6.3-8.2) g/dL Albumin 2.8 L (3.5-5.0) g/dL Microbiology - Last 24 Hours (Table) 04/08/20 12:37 Blood Culture - Preliminary Blood No Growth after 48 hours 04/08/20 12:29 Blood Culture - Preliminary Blood No Growth after 48 hours 04/07/20 19:35 Blood Culture Gram Stain - Final Blood Blood Culture - Final Escherichia coli <Rachael Perez N - Last Filed: 04/17/20 06:19> Subjective As above. Please see additional documentation below. HISTORY OF PRESENT ILLNESS: The patient is a 75-year-old female admitted with abnormal liver enzymes and incidental findings of cholecystitis. Yesterday, attempted ERCP was performed but aborted. She is on clear liquid diet. No repo rts of nausea or vomiting. REVIEW OF ORGAN SYSTEMS: No fevers or chills. No chest pain. No productive sputum. PHYSICAL EXAM: VITALS: Reviewed CONSTITUTIONAL: Well developed and in no acute distress. EYES: Extraocular movements grossly intact. Wears glasses. HEAD, EARS, NOSE, THROAT: Moist buccal mucosa. Head is atraumatic, normocephalic. Hears conversational speech. No nasal drainage. NECK: No JV distention. RESPIRATORY: Non-labored respirations and equal bilateral excursions. No gross wheezes. CARDIOVASCULAR: Regular rate and rhythm. Palpable 2+ radial pulses. ABDOMEN: Soft. No peritonitis MUSCULOSKELETAL: No cyanosis or edema SKIN: Warm and well perfused with good skin turgor. NEUROLOGIC: Cranial nerves II through XII grossly intact. No focal or lateralizing signs. PSYCH: Appropriate affect. Alert and oriented to person. CLINCAL LABS: Reviewed. WBC was elevated over 25,000 down to 13,000. Today down to 8000. Hemoglobin down 11.7-9.7, 9.2. Total bilirubin down 3.5-1.6, now 1.1. LFTs continue to trend downwards. STUDIES: MRCP independent review demonstrates dilated cystic duct including common bile duct. MEDICAL REPORT: ERCP aborted due to stenotic pancreatic papilla. ASSESSMENT: 1. Leukocytosis with acute cholecystitis 2. Hyperbilirubinemia for choledocholithiasis 3. Failed ERCP PLAN: 1. LFTs continue to improve. 2. Continue with IV antibiotics. 3. Will proceed with surgical intervention once LFTs normalize Objective - Vital Signs Vital signs: Vital Signs Temp 98.1 F 04/17/20 02:37 Pulse 65 04/17/20 02:37 Resp 18 04/17/20 02:37 BP 135/75 04/17/20 02:37 Pulse Ox 93 L 04/17/20 02:37 Intake & Output 04/16/20 04/16/20 04/17/20 06:59 18:59 06:59 Output Total 120 105 30 Balance -120 -105 -30 Weight 70.307 kg Output: Drainage 120 105 30 Abdomen 120 105 30 Other: Voiding Method Toilet Toilet Toilet # Voids 2 1 - Labs CBC & Chem 7: 04/16/20 11:11 04/16/20 11:11 Labs: Abnormal Lab Results - Last 24 Hours (Table) 04/16/20 04/16/20 04/16/20 Range/Units 11:11 11:11 11:41 WBC 12.9 H (3.8-10.6) k/uL RBC 3.33 L (3.80-5.40) m/uL Hgb 10.2 L (11.4-16.0) gm/dL Hct 32.6 L (34.0-46.0) % Neutrophils # (Manual) 10.00 H (1.3-7.7) k/uL Lymphocytes # (Manual) 0.77 L (1.0-4.8) k/uL Monocytes # (Manual) 1.81 H (0-1.0) k/uL Metamyelocytes # (Man) 0.13 H (0) k/uL Myelocytes # (Manual) 0.13 H (0) k/uL Potassium 3.0 L (3.5-5.1) mmol/L Glucose 132 H (74-99) mg/dL POC Glucose (mg/dL) 139 H (75-99) mg/dL Calcium 7.7 L (8.4-10.2) mg/dL Total Bilirubin 1.5 H (0.2-1.3) mg/dL Alkaline Phosphatase 193 H (38-126) U/L Total Protein 5.2 L (6.3-8.2) g/dL Albumin 2.7 L (3.5-5.0) g/dL 04/16/20 04/16/20 Range/Units 16:31 21:21 WBC (3.8-10.6) k/uL RBC (3.80-5.40) m/uL Hgb (11.4-16.0) gm/dL Hct (34.0-46.0) % Neutrophils # (Manual) (1.3-7.7) k/uL Lymphocytes # (Manual) (1.0-4.8) k/uL Monocytes # (Manual) (0-1.0) k/uL Metamyelocytes # (Man) (0) k/uL Myelocytes # (Manual) (0) k/uL Potassium (3.5-5.1) mmol/L Glucose (74-99) mg/dL POC Glucose (mg/dL) 122 H 119 H (75-99) mg/dL Calcium (8.4-10.2) mg/dL Total Bilirubin (0.2-1.3) mg/dL Alkaline Phosphatase (38-126) U/L Total Protein (6.3-8.2) g/dL Albumin (3.5-5.0) g/dL Assessment and Plan (1) Acute cholecystitis Current Visit: Yes Status: Acute Code(s): K81.0 - ACUTE CHOLECYSTITIS SNOMED Code(s): 63533610 (2) Hyperbilirubinemia Current Visit: Yes Status: Acute Code(s): E80.6 - OTHER DISORDERS OF BILIRUBIN METABOLISM SNOMED Code(s): 95505407 (3) Diabetes type 2, uncontrolled Current Visit: Yes Status: Acute Code(s): E11.65 - TYPE 2 DIABETES MELLITUS WITH HYPERGLYCEMIA SNOMED Code(s): 966950336 (4) Lactic acidosis Current Visit: Yes Status: Acute Code(s): E87.2 - ACIDOSIS SNOMED Code(s): 08831332 (5) Abnormal endoscopic retrograde cholangiopancreatography (ERCP) Current Visit: Yes Status: Acute Code(s): R93.2 - ABNORMAL FINDINGS ON DX IMAGING OF LIVER AND BILIARY TRACT SNOMED Code(s): 431657666
[2020-04-10 16:44] LABS: Glucose,Whole Blood 96 mg/dL (75-99)
[2020-04-10 20:43] LABS: Glucose,Whole Blood 85 mg/dL (75-99)
[2020-04-11] MEDS: SODIUM CHLORIDE 0.9% 1,000 ML IV SCH ×3 (01:46→17:01)
[2020-04-11] MEDS: PIPERACILLIN-TAZOBACTAM 3.375 GM in SODIUM CHLORIDE 0.9% 100 ML IVPB SCH ×3 (03:12→20:34)
[2020-04-11 06:42] LABS: Glucose,Whole Blood 128 mg/dL (75-99)
--- NOTE | 2020-04-11 06:49 | P.PN ---
Subjective Progress Note Date: 04/10/20 Principal diagnosis: Elevated liver enzymes, cholelithiasis, cholecystitis Patient lying in bed. Abdominal pain overall improved. No nausea or vomiting. Objective - Vital Signs Vital signs: Vital Signs Temp 97.4 F L 04/10/20 07:23 Pulse 61 04/10/20 13:56 Resp 16 04/10/20 13:56 BP 132/69 04/10/20 07:23 Pulse Ox 97 04/10/20 07:23 Intake & Output 04/09/20 04/10/20 04/10/20 18:59 06:59 18:59 Intake Total 300 880 Balance 300 880 Intake: IV 200 Intake, IV Titration 880 Amount Piperacillin-Tazobactam 3 100 .375 gm In Sodium Chloride 0.9% 100 ml @ 200 mls/hr IVPB Q8H [facility] Rx#:[id number] Sodium Chloride 0.9% 1, 780 000 ml @ 130 mls/hr IV . Q7H42M [facility] Rx#:[id number] Other 100 Other: Voiding Method Toilet # Voids 1 2 - Exam On physical examination, patient appears comfortable in no apparent distress. HEAD: Normocephalic, atraumatic. EYES: No scleral icterus. No conjunctival injection. MOUTH: No lesions, tongue midline. NECK: Trachea midline, no gross abnormalities. CHEST: Clear to auscultation with no wheezing or rhonchi appreciated. HEART: S1-S2 appreciated. ABDOMEN: Soft, mildly tender to palpation. Bowel sounds are positive. No organomegaly. No guarding or rigidity. EXTREMITIES: No rashes noted, or pallor or jaundice. SKIN: No rashes, no jaundice. NEUROLOGIC: Alert and oriented x3. No focal deficits. - Labs CBC & Chem 7: 04/10/20 07:31 04/10/20 07:31 Labs: Abnormal Lab Results - Last 24 Hours (Table) 04/09/20 04/09/20 04/09/20 Range/Units 16:36 16:59 20:27 RBC (3.80-5.40) m/uL Hgb (11.4-16.0) gm/dL Hct (34.0-46.0) % MCV (80.0-100.0) fL MCHC (31.0-37.0) g/dL Metamyelocytes # (Man) (0) k/uL Myelocytes # (Manual) (0) k/uL Chloride (98-107) mmol/L Carbon Dioxide (22-30) mmol/L BUN (7-17) mg/dL POC Glucose (mg/dL) 128 H 124 H 156 H (75-99) mg/dL Calcium (8.4-10.2) mg/dL AST (14-36) U/L ALT (4-34) U/L Alkaline Phosphatase (38-126) U/L Total Protein (6.3-8.2) g/dL Albumin (3.5-5.0) g/dL 04/10/20 04/10/20 Range/Units 07:31 07:31 RBC 3.09 L (3.80-5.40) m/uL Hgb 9.6 L (11.4-16.0) gm/dL Hct 31.7 L (34.0-46.0) % MCV 102.4 H (80.0-100.0) fL MCHC 30.5 L (31.0-37.0) g/dL Metamyelocytes # (Man) 0.17 H (0) k/uL Myelocytes # (Manual) 0.26 H (0) k/uL Chloride 112 H (98-107) mmol/L Carbon Dioxide 20 L (22-30) mmol/L BUN 22 H (7-17) mg/dL POC Glucose (mg/dL) (75-99) mg/dL Calcium 7.8 L (8.4-10.2) mg/dL AST 79 H (14-36) U/L ALT 133 H (4-34) U/L Alkaline Phosphatase 215 H (38-126) U/L Total Protein 5.6 L (6.3-8.2) g/dL Albumin 2.8 L (3.5-5.0) g/dL Microbiology - Last 24 Hours (Table) 04/07/20 19:35 Blood Culture Gram Stain - Final Blood Blood Culture - Final Escherichia coli 04/08/20 12:37 Blood Culture - Preliminary Blood No Growth after 24 hours 04/08/20 12:29 Blood Culture - Preliminary Blood No Growth after 24 hours Assessment and Plan (1) Elevated liver enzymes Narrative/Plan: 75-year-old female presenting to the hospital for complaints of abdominal pain found to have cholecystitis for which she is currently receiving antibiotic treatment. Patient's liver enzymes elevated on presentation with total bilirubin greater than 3 and imaging suggestive of a dilated CBD. Patient taken for ERCP due to clinical suspicion for choledocholithiasis, however this was unsuccessful due to technical difficulty cannulating the papilla. Since that time bilirubin has trended to normal and MRCP which was performed in evaluation showed ductal dilation of the CBD with no choledocholithiasis noted. Plan is for cholecystectomy on 04/12/2020 with the surgical service. Current Visit: Yes Status: Acute Code(s): R74.8 - ABNORMAL LEVELS OF OTHER SERUM ENZYMES SNOMED Code(s): 921062336 (2) Abdominal pain Current Visit: Yes Status: Acute Code(s): R10.9 - UNSPECIFIED ABDOMINAL PAIN SNOMED Code(s): 32338738 (3) Acute cholecystitis Current Visit: Yes Status: Acute Code(s): K81.0 - ACUTE CHOLECYSTITIS SNOMED Code(s): 16790474 Plan: Supportive care Diet as per recommendations by surgical service Tentative plan for cholecystectomy MRCP reviewed with no evidence of choledocholithiasis Continue to monitor CBC, BMP, LFTs No plans for further endoscopic evaluation Patient will need follow-up after discharge with consideration for repeat imaging in 6 months to ensure stability of a 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
[2020-04-11 07:27] LABS: Albumin 2.9 g/dL (3.5-5.0); Potassium 4.1 mmol/L (3.5-5.1); Total Protein 5.7 g/dL (6.3-8.2)
[2020-04-11 07:28] LABS: Calcium 7.8 mg/dL (8.4-10.2)
[2020-04-11] MEDS: INSULIN ASPART (NovoLOG) 100 UNIT/ML VIAL SQ SCH ×4 (07:40→21:43)
[2020-04-11] MEDS: PANTOPRAZOLE 40 MG TABLET PO SCH (07:47)
[2020-04-11] MEDS: HEPARIN SODIUM,PORCINE 5,000 UNIT/ML 1 ML VIAL SQ SCH ×2 (07:47→20:34)
--- NOTE | 2020-04-11 09:08 | P.PN ---
Subjective This 75-year-old pleasant female patient of Dr. Amaya. She has underlying history of diabetes mellitus type 2, otherwise healthy. Was seen in emergency room secondary to vague abdominal pain, off and on for the past 2 weeks, this has gotten worse over the past 1 week, accompanied by lightheadedness dizziness, fatigue no appetite, patient denies any fever no chills, pain is in the epigastric region 7 out of 10, nonradiating. Patient denies any urine discoloration or stool discoloration, no diarrhea, pain Once in the emergency room, liver function test was noted to be elevated, she slightly jaundice, bili of 3, AST of 600 ALT of 284, alkaline force of 380, ultrasound of the gallbladder showed distended large gallbladder with the previous filled gallbladder, common bile duct is 0.8 cm, common bile duct wall of 0.3 cm, consider cholecystitis, underlying mass any plasm the gallbladder is not excluded CAT scan of the abdomen and pelvis with contrast shows the gallbladder is distended, pancreas is atrophic, common bile duct somewhat pr ominent, maybe small density at the neck of the gallbladder, some inflammatory change adjacent to the fundus of the gallbladder, correlate for acute cholecystitis. Patient was admitted, with cholecystitis with choledocholithiasis, acute jaundice, blood cultures are positive for gram- negative bacilli, patient's on IV Zosyn. Consult with Dr. Bunn, and Dr. Perez. 04/09: Patient is currently nothing by mouth but has been tolerating diet. No nausea or vomiting. No fever or chills. Patient currently does not have any abdominal pain. She has been seen by general surgery with plan for nash cystectomy as she improves. She has also been seen by GI and she is scheduled for ERCP this morning. She is currently on IV antibiotics in the form of Zosyn. Patient has had lab work improvement since yesterday with white count of 13, hemoglobin 9.2. Total bilirubin 1.6, AST 204, ALT 194, alkaline phosphatase 238. Hemoglobin A1c is 7.5. 04/10: Patient evaluated morning rounds, she reports she is feeling well she denies any nausea, vomiting, or diarrhea. She is still nothing by mouth. ERCP was attempted yesterday, multiple attempts to cannulate the papilla were unsuccessful with suspicion for stenotic papilla. ERCP was then aborted. Patient went for MRCP today. Procedure was tolerated well. Results from the ERCP are pending. Objective - Vital Signs Vital signs: Vital Signs Temp 97.4 F L 04/10/20 07:23 Pulse 56 L 04/10/20 07:23 Resp 16 04/10/20 07:23 BP 132/69 04/10/20 07:23 Pulse Ox 97 04/10/20 07:23 Intake & Output 04/09/20 04/10/20 04/10/20 18:59 06:59 18:59 Intake Total 300 Balance 300 Intake: IV 200 Other 100 Other: Voiding Method Toilet # Voids 1 - Exam HEENT: Head is atraumatic, normocephalic. Pupils equal, round. Sclerae is anicteric. NECK: Supple. No JVD. No lymphadenopathy. No thyromegaly. LUNGS: Clear to auscultation. No wheezes or rhonchi. No intercostal retractions. HEART: Regular rate and rhythm. No murmur. ABDOMEN: Soft. Bowel sounds are present. No masses. No tenderness EXTREMITIES: No pedal edema. No calf tenderness NEUROLOGICAL: Patient is awake, alert and oriented x3. Cranial nerves 2 through 12 are grossly intact - Labs CBC & Chem 7: 04/10/20 07:31 04/11/20 06:37 Labs: Abnormal Lab Results - Last 24 Hours (Table) 04/09/20 04/09/20 04/09/20 Range/Units 16:36 16:59 20:27 RBC (3.80-5.40) m/uL Hgb (11.4-16.0) gm/dL Hct (34.0-46.0) % MCV (80.0-100.0) fL MCHC (31.0-37.0) g/dL Chloride (98-107) mmol/L Carbon Dioxide (22-30) mmol/L BUN (7-17) mg/dL POC Glucose (mg/dL) 128 H 124 H 156 H (75-99) mg/dL Calcium (8.4-10.2) mg/dL AST (14-36) U/L ALT (4-34) U/L Alkaline Phosphatase (38-126) U/L Total Protein (6.3-8.2) g/dL Albumin (3.5-5.0) g/dL 04/10/20 04/10/20 Range/Units 07:31 07:31 RBC 3.09 L (3.80-5.40) m/uL Hgb 9.6 L (11.4-16.0) gm/dL Hct 31.7 L (34.0-46.0) % MCV 102.4 H (80.0-100.0) fL MCHC 30.5 L (31.0-37.0) g/dL Chloride 112 H (98-107) mmol/L Carbon Dioxide 20 L (22-30) mmol/L BUN 22 H (7-17) mg/dL POC Glucose (mg/dL) (75-99) mg/dL Calcium 7.8 L (8.4-10.2) mg/dL AST 79 H (14-36) U/L ALT 133 H (4-34) U/L Alkaline Phosphatase 215 H (38-126) U/L Total Protein 5.6 L (6.3-8.2) g/dL Albumin 2.8 L (3.5-5.0) g/dL Microbiology - Last 24 Hours (Table) 04/07/20 19:35 Blood Culture Gram Stain - Final Blood Blood Culture - Final Escherichia coli 04/08/20 12:37 Blood Culture - Preliminary Blood No Growth after 24 hours 04/08/20 12:29 Blood Culture - Preliminary Blood No Growth after 24 hours Assessment and Plan Plan: 1. 1. Acute cholecystitis with choledocholithiasis, and cholestatic jaundice as well as elevation of transaminase, patient will be seen by Dr. Dave and Dr. Bunn, unsuccessful ERCP, MRCP completed today, result are pending. 2. Diabetes mellitus type 2. Hold glimepiride. Continue NovoLog scale. Hemoglobin A1c 7.5. Patient has been hypoglycemic. 3. Acute bacteremia secondary to ascending cholecystitis. Continue Zosyn. 4. Sepsis with gram-negative bacteremia. Continue to monitor lab work closely and await blood culture finalization. 5. GI prophylaxis. Protonix. 6. DVT prophylaxis. Heparin subcu. The above impression and plan of care have been discussed and directed by signing physician. Eufemia Biggs nurse practitioner acting as scribe for signing physician.
--- NOTE | 2020-04-11 09:21 | P.PN ---
Subjective This 75-year-old pleasant female patient of Dr. Amaya. She has underlying history of diabetes mellitus type 2, otherwise healthy. Was seen in emergency room secondary to vague abdominal pain, off and on for the past 2 weeks, this has gotten worse over the past 1 week, accompanied by lightheadedness dizziness, fatigue no appetite, patient denies any fever no chills, pain is in the epigastric region 7 out of 10, nonradiating. Patient denies any urine discoloration or stool discoloration, no diarrhea, pain Once in the emergency room, liver function test was noted to be elevated, she slightly jaundice, bili of 3, AST of 600 ALT of 284, alkaline force of 380, ultrasound of the gallbladder showed distended large gallbladder with the previous filled gallbladder, common bile duct is 0.8 cm, common bile duct wall of 0.3 cm, consider cholecystitis, underlying mass any plasm the gallbladder is not excluded CAT scan of the abdomen and pelvis with contrast shows the gallbladder is distended, pancreas is atrophic, common bile duct somewhat pr ominent, maybe small density at the neck of the gallbladder, some inflammatory change adjacent to the fundus of the gallbladder, correlate for acute cholecystitis. Patient was admitted, with cholecystitis with choledocholithiasis, acute jaundice, blood cultures are positive for gram- negative bacilli, patient's on IV Zosyn. Consult with Dr. Bunn, and Dr. Perez. 04/09: Patient is currently nothing by mouth but has been tolerating diet. No nausea or vomiting. No fever or chills. Patient currently does not have any abdominal pain. She has been seen by general surgery with plan for nash cystectomy as she improves. She has also been seen by GI and she is scheduled for ERCP this morning. She is currently on IV antibiotics in the form of Zosyn. Patient has had lab work improvement since yesterday with white count of 13, hemoglobin 9.2. Total bilirubin 1.6, AST 204, ALT 194, alkaline phosphatase 238. Hemoglobin A1c is 7.5. 04/10: Patient evaluated morning rounds, she reports she is feeling well she denies any nausea, vomiting, or diarrhea. She is still nothing by mouth. ERCP was attempted yesterday, multiple attempts to cannulate the papilla were unsuccessful with suspicion for stenotic papilla. ERCP was then aborted. Patient went for MRCP today. Procedure was tolerated well. Results from the ERCP are pending. 04/11: Patient noted this morning, reports she is feeling well she is tolerating a clear liquid diet. MRCP done yesterday without evidence common duct or proper hepatic duct stone. There was a small site of T2 hyperintensity within the pancreas with IPMN within the differential. Gastroenterology note appreciated recommends repeat imaging in 6 months. Plans for surgery tomorrow. vital signs are stable she's afebrile 97.6, heart rate 54, respiratory 16, blood pressure 149/57. Laboratory values are trending down total bilirubin 1.0 AST 48, ALT 108 , alkaline phosphate 233. Objective - Vital Signs Vital signs: Vital Signs Temp 97.6 F 04/11/20 07:34 Pulse 54 L 04/11/20 07:34 Resp 16 04/11/20 07:34 BP 149/57 04/11/20 07:34 Pulse Ox 93 L 04/11/20 07:34 Intake & Output 04/10/20 04/11/20 04/11/20 18:59 06:59 18:59 Intake Total 1080 Balance 1080 Intake: Intake, IV Titration 880 Amount Piperacillin-Tazobactam 3 100 .375 gm In Sodium Chloride 0.9% 100 ml @ 200 mls/hr IVPB Q8H [facility] Rx#:[id number] Sodium Chloride 0.9% 1, 780 000 ml @ 130 mls/hr IV . Q7H42M [facility] Rx#:[id number] Other 200 Other: Voiding Method Toilet Toilet Toilet # Voids 2 2 - Exam HEENT: Head is atraumatic, normocephalic. Pupils equal, round. Sclerae is anicteric. NECK: Supple. No JVD. No lymphadenopathy. No thyromegaly. LUNGS: Clear to auscultation. No wheezes or rhonchi. No intercostal retractions. HEART: Regular rate and rhythm. No murmur. ABDOMEN: Soft. Bowel sounds are present. No masses. RUQ tenderness EXTREMITIES: No pedal edema. No calf tenderness NEUROLOGICAL: Patient is awake, alert and oriented x3. Cranial nerves 2 through 12 are grossly intact - Labs CBC & Chem 7: 04/10/20 07:31 04/11/20 06:37 Labs: Abnormal Lab Results - Last 24 Hours (Table) 04/10/20 04/11/20 04/11/20 Range/Units 07:31 06:36 06:37 RBC 3.09 L (3.80-5.40) m/uL Hgb 9.6 L (11.4-16.0) gm/dL Hct 31.7 L (34.0-46.0) % MCV 102.4 H (80.0-100.0) fL MCHC 30.5 L (31.0-37.0) g/dL Metamyelocytes # (Man) 0.17 H (0) k/uL Myelocytes # (Manual) 0.26 H (0) k/uL Chloride 112 H (98-107) mmol/L BUN 18 H (7-17) mg/dL Glucose 136 H (74-99) mg/dL POC Glucose (mg/dL) 128 H (75-99) mg/dL Calcium 7.8 L (8.4-10.2) mg/dL AST 48 H (14-36) U/L ALT 108 H (4-34) U/L Alkaline Phosphatase 233 H (38-126) U/L Total Protein 5.7 L (6.3-8.2) g/dL Albumin 2.9 L (3.5-5.0) g/dL Microbiology - Last 24 Hours (Table) 04/08/20 12:37 Blood Culture - Preliminary Blood No Growth after 48 hours 04/08/20 12:29 Blood Culture - Preliminary Blood No Growth after 48 hours 04/07/20 19:35 Blood Culture Gram Stain - Final Blood Blood Culture - Final Escherichia coli Assessment and Plan Plan: 1. 1. Acute cholecystitis with choledocholithiasis, and cholestatic jaundice as well as elevation of transaminase, patient will be seen by Dr. Dave and Dr. Bunn, unsuccessful ERCP, MRCP completed. 2. Diabetes mellitus type 2. Hold glimepiride. Continue NovoLog scale. Hemoglobin A1c 7.5. Patient has been hypoglycemic. 3. Acute bacteremia secondary to ascending cholecystitis. Continue Zosyn. 4. Sepsis with gram-negative bacteremia. Continue to monitor lab work closely and await blood culture finalization. 5. GI prophylaxis. Protonix. 6. DVT prophylaxis. Heparin subcu. The above impression and plan of care have been discussed and directed by signing physician. Eufemia Biggs nurse practitioner acting as scribe for signing physician.
[2020-04-11] MEDS: ONDANSETRON 4 MG/2 ML VIAL IVP PRN (10:18)
[2020-04-11 11:46] LABS: Glucose,Whole Blood 163 mg/dL (75-99)
--- NOTE | 2020-04-11 12:00 | P.PN ---
Subjective Progress Note Date: 04/11/20 Principal diagnosis: Elevated liver enzymes, cholelithiasis, cholecystitis The patient is up ambulating in halls. She states her abdominal pain has improved, she is having some mild nausea but no vomiting. Bowel movements have been normal. Denies any fevers or chills. She is scheduled tomorrow for a cystectomy. Objective - Vital Signs Vital signs: Vital Signs Temp 97.6 F 04/11/20 07:34 Pulse 54 L 04/11/20 07:34 Resp 16 04/11/20 07:34 BP 149/57 04/11/20 07:34 Pulse Ox 93 L 04/11/20 07:34 Intake & Output 04/10/20 04/11/20 04/11/20 18:59 06:59 18:59 Intake Total 1080 Balance 1080 Intake: Intake, IV Titration 880 Amount Piperacillin-Tazobactam 3 100 .375 gm In Sodium Chloride 0.9% 100 ml @ 200 mls/hr IVPB Q8H [facility] Rx#:[id number] Sodium Chloride 0.9% 1, 780 000 ml @ 130 mls/hr IV . Q7H42M [facility] Rx#:[id number] Other 200 Other: Voiding Method Toilet Toilet Toilet # Voids 2 2 - Exam General appearance: The patient is alert, oriented, in no acute distress. HET: Head is normocephalic and atraumatic. Conjunctiva pink. Sclera anicteric. Neck: Supple without lymphadenopathy. Abdomen: Soft, nontender, nondistended with bowel sounds. No guarding or rigidity. Extremities: Normal skin color and turgor. No pedal edema Neurological: No focal deficits. Alert and oriented 3. - Labs CBC & Chem 7: 04/10/20 07:31 04/11/20 06:37 Labs: Abnormal Lab Results - Last 24 Hours (Table) 04/11/20 04/11/20 04/11/20 Range/Units 06:36 06:37 11:45 Chloride 112 H (98-107) mmol/L BUN 18 H (7-17) mg/dL Glucose 136 H (74-99) mg/dL POC Glucose (mg/dL) 128 H 163 H (75-99) mg/dL Calcium 7.8 L (8.4-10.2) mg/dL AST 48 H (14-36) U/L ALT 108 H (4-34) U/L Alkaline Phosphatase 233 H (38-126) U/L Total Protein 5.7 L (6.3-8.2) g/dL Albumin 2.9 L (3.5-5.0) g/dL Microbiology - Last 24 Hours (Table) 04/08/20 12:37 Blood Culture - Preliminary Blood No Growth after 48 hours 04/08/20 12:29 Blood Culture - Preliminary Blood No Growth after 48 hours 04/07/20 19:35 Blood Culture Gram Stain - Final Blood Blood Culture - Final Escherichia coli Assessment and Plan (1) Elevated liver enzymes Narrative/Plan: 75-year-old female presenting to the hospital for complaints of abdominal pain found to have cholecystitis for which she is currently receiving antibiotic treatment. Patient's liver enzymes elevated on presentation with total bilirubin greater than 3 and imaging suggestive of a dilated CBD. Patient taken for ERCP due to clinical suspicion for choledocholithiasis, however this was unsuccessful due to technical difficulty cannulating the papilla. Since that time bilirubin has trended to normal and MRCP which was performed in evaluation showed ductal dilation of the CBD with no choledocholithiasis noted. Plan is for cholecystectomy on 04/12/2020 with the surgical service. Current Visit: Yes Status: Acute Code(s): R74.8 - ABNORMAL LEVELS OF OTHER SERUM ENZYMES SNOMED Code(s): 290662830 (2) Abdominal pain Current Visit: Yes Status: Acute Code(s): R10.9 - UNSPECIFIED ABDOMINAL PAIN SNOMED Code(s): 83599159 (3) Acute cholecystitis Current Visit: Yes Status: Acute Code(s): K81.0 - ACUTE CHOLECYSTITIS SNOMED Code(s): 24169422 Plan: Supportive care Diet as per recommendations by surgical service Cystectomy scheduled for tomorrow MRCP reviewed with no evidence of choledocholithiasis Continue to monitor CBC, BMP, LFTs No plans for further endoscopic evaluation Patient will need follow-up after discharge with consideration for repeat imaging in 6 months to ensure stability of a 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 The impression and plan of care has been dictated as directed. I performed a history and examination of this patient, discussed the same with the dictator. I agree with the dictator's note ,documented as a scribe. Any additional findings or plans will be noted.
--- NOTE | 2020-04-11 14:36 | P.PN ---
<Lynette Limon - Last Filed: 04/11/20 14:30> Subjective Progress Note Date: 04/11/20 CHIEF COMPLAINT: Abdominal pain HISTORY OF PRESENT ILLNESS: The patient is a 75-year-old female admitted with abnormal liver enzymes and incidental findings of cholecystitis. Patient has no abdominal pain today. She is slightly nauseated this morning. I'm she is tolerating clear liquid diet. She is passing gas and having bowel movements. She is afebrile. Total bili 1.0 AST is down to 48 ALT 108 alk phos 233 lipase 45 patient has 1 positive blood culture with E. coli, repeat blood cultures negative PHYSICAL EXAM: VITAL SIGNS: Reviewed GENERAL: Well-developed in no acute distress. HEENT: No sclera icterus. Extraocular movements grossly intact. Moist buccal mucosa. Head is atraumatic, normocephalic. Hears conversational speech. No nasal drainage. NECK: Supple without lymphadenopathy. CHEST: Non-labored respirations and equal bilateral excursions. CARDIOVASCULAR: Regular rate with regular rhythm. Palpable 2+ radial pulses. ABDOMEN: Soft. Nondistended. Nontender MUSCULOSKELETAL: No clubbing or cyanosis. NEUROLOGIC: No focal or lateralizing signs. Cranial nerves II through XII grossly intact. PSYCH: Appropriate affect. Alert and oriented to person, place and time. SKIN: Well perfused. Good skin turgor. ASSESSMENT: 1. Leukocytosis with acute cholecystitis 2. Hyperbilirubinemia resolved 3. Bacteremia with E. coli like a secondary to the acute cholecystitis PLAN: -Start low-fat diet for today -Nothing by mouth after midnight -Cholecystectomy tentatively planned for , 04/12/[address] Perez -continue antibiotics -Continue IV fluids Physician Associate Professor Of Philosophy note has been reviewed by physician. Signing provider agrees with the documented findings, assessment, and plan of care. Objective - Vital Signs Vital signs: Vital Signs Temp 97.6 F 04/11/20 07:34 Pulse 54 L 04/11/20 07:34 Resp 16 04/11/20 07:34 BP 149/57 04/11/20 07:34 Pulse Ox 93 L 04/11/20 07:34 Intake & Output 04/10/20 04/11/20 04/11/20 18:59 06:59 18:59 Intake Total 1080 Balance 1080 Intake: Intake, IV Titration 880 Amount Piperacillin-Tazobactam 3 100 .375 gm In Sodium Chloride 0.9% 100 ml @ 200 mls/hr IVPB Q8H [facility] Rx#:[id number] Sodium Chloride 0.9% 1, 780 000 ml @ 130 mls/hr IV . Q7H42M [facility] Rx#:[id number] Other 200 Other: Voiding Method Toilet Toilet Toilet # Voids 2 2 2 - Labs CBC & Chem 7: 04/10/20 07:31 04/11/20 06:37 Labs: Abnormal Lab Results - Last 24 Hours (Table) 04/11/20 04/11/20 04/11/20 Range/Units 06:36 06:37 11:45 Chloride 112 H (98-107) mmol/L BUN 18 H (7-17) mg/dL Glucose 136 H (74-99) mg/dL POC Glucose (mg/dL) 128 H 163 H (75-99) mg/dL Calcium 7.8 L (8.4-10.2) mg/dL AST 48 H (14-36) U/L ALT 108 H (4-34) U/L Alkaline Phosphatase 233 H (38-126) U/L Total Protein 5.7 L (6.3-8.2) g/dL Albumin 2.9 L (3.5-5.0) g/dL Microbiology - Last 24 Hours (Table) 04/07/20 19:35 Blood Culture Gram Stain - Final Blood Blood Culture - Final Escherichia coli 04/08/20 12:37 Blood Culture - Preliminary Blood No Growth after 48 hours 04/08/20 12:29 Blood Culture - Preliminary Blood No Growth after 48 hours <Rachael Perez N - Last Filed: 04/17/20 06:23> Subjective As above. Patient seen and evaluated with above. Please see additional documentation below. HISTORY OF PRESENT ILLNESS: The patient is a 75-year-old female admitted leukocytosis, elevated liver enzymes, symptomatic gallstones. She had an aborted ERCP. Additional diagnostic studies demonstrated persistently dilated common bile duct MRCP. Otherwise she is tolerating diet. No nausea and vomiting. REVIEW OF ORGAN SYSTEMS: No fevers or chills. No chest pain. No productive sputum. PHYSICAL EXAM: VITALS: Reviewed CONSTITUTIONAL: Well developed and in no acute distress. EYES: Extraocular movements grossly intact. HEAD, EARS, NOSE, THROAT: Moist buccal mucosa. Head is atraumatic, normocephalic. Hears conversational speech. No nasal drainage. NECK: No JV distention. RESPIRATORY: Non-labored respirations and equal bilateral excursions. No gross wheezes. CARDIOVASCULAR: Regular rate and rhythm. Palpable 2+ radial pulses. ABDOMEN: Soft, nontender. MUSCULOSKELETAL: No clubbing cyanosis or edema. SKIN: Warm and well perfused with good skin turgor. NEUROLOGIC: Cranial nerves II through XII grossly intact. No focal or lateral izing signs. PSYCH: Appropriate affect. Alert and oriented to person. CLINCAL LABS: Reviewed. Bilirubin normal 1.0. AST, ALT, alkaline phosphatase continued elevation. ASSESSMENT: 1. Leukocytosis with acute cholecystitis 2. Hyperbilirubinemia 3. Symptomatic gallstones 4. Elevated liver enzymes PLAN: 1. LFTs continue to improve. 2. Benefits and risks of cholecystectomy described. 3. Continue IV antibiotics Objective - Vital Signs Vital signs: Vital Signs Temp 98.1 F 04/17/20 02:37 Pulse 65 04/17/20 02:37 Resp 18 04/17/20 02:37 BP 135/75 04/17/20 02:37 Pulse Ox 93 L 04/17/20 02:37 Intake & Output 04/16/20 04/16/20 04/17/20 06:59 18:59 06:59 Output Total 120 105 30 Balance -120 -105 -30 Weight 70.307 kg Output: Drainage 120 105 30 Abdomen 120 105 30 Other: Voiding Method Toilet Toilet Toilet # Voids 2 1 - Labs CBC & Chem 7: 04/16/20 11:11 04/16/20 11:11 Labs: Abnormal Lab Results - Last 24 Hours (Table) 04/16/20 04/16/20 04/16/20 Range/Units 11:11 11:11 11:41 WBC 12.9 H (3.8-10.6) k/uL RBC 3.33 L (3.80-5.40) m/uL Hgb 10.2 L (11.4-16.0) gm/dL Hct 32.6 L (34.0-46.0) % Neutrophils # (Manual) 10.00 H (1.3-7.7) k/uL Lymphocytes # (Manual) 0.77 L (1.0-4.8) k/uL Monocytes # (Manual) 1.81 H (0-1.0) k/uL Metamyelocytes # (Man) 0.13 H (0) k/uL Myelocytes # (Manual) 0.13 H (0) k/uL Potassium 3.0 L (3.5-5.1) mmol/L Glucose 132 H (74-99) mg/dL POC Glucose (mg/dL) 139 H (75-99) mg/dL Calcium 7.7 L (8.4-10.2) mg/dL Total Bilirubin 1.5 H (0.2-1.3) mg/dL Alkaline Phosphatase 193 H (38-126) U/L Total Protein 5.2 L (6.3-8.2) g/dL Albumin 2.7 L (3.5-5.0) g/dL 04/16/20 04/16/20 Range/Units 16:31 21:21 WBC (3.8-10.6) k/uL RBC (3.80-5.40) m/uL Hgb (11.4-16.0) gm/dL Hct (34.0-46.0) % Neutrophils # (Manual) (1.3-7.7) k/uL Lymphocytes # (Manual) (1.0-4.8) k/uL Monocytes # (Manual) (0-1.0) k/uL Metamyelocytes # (Man) (0) k/uL Myelocytes # (Manual) (0) k/uL Potassium (3.5-5.1) mmol/L Glucose (74-99) mg/dL POC Glucose (mg/dL) 122 H 119 H (75-99) mg/dL Calcium (8.4-10.2) mg/dL Total Bilirubin (0.2-1.3) mg/dL Alkaline Phosphatase (38-126) U/L Total Protein (6.3-8.2) g/dL Albumin (3.5-5.0) g/dL Assessment and Plan (1) Acute cholecystitis Current Visit: Yes Status: Acute Code(s): K81.0 - ACUTE CHOLECYSTITIS SNOMED Code(s): 96616792 (2) Hyperbilirubinemia Current Visit: Yes Status: Acute Code(s): E80.6 - OTHER DISORDERS OF BILIRUBIN METABOLISM SNOMED Code(s): 26631709 (3) Diabetes type 2, uncontrolled Current Visit: Yes Status: Acute Code(s): E11.65 - TYPE 2 DIABETES MELLITUS WITH HYPERGLYCEMIA SNOMED Code(s): 612243669 (4) Lactic acidosis Current Visit: Yes Status: Acute Code(s): E87.2 - ACIDOSIS SNOMED Code(s): 57305021 (5) Abnormal endoscopic retrograde cholangiopancreatography (ERCP) Current Visit: Yes Status: Acute Code(s): R93.2 - ABNORMAL FINDINGS ON DX IMAGING OF LIVER AND BILIARY TRACT SNOMED Code(s): 727905605
[2020-04-11 16:53] LABS: Glucose,Whole Blood 168 mg/dL (75-99)
[2020-04-11 20:46] LABS: Glucose,Whole Blood 159 mg/dL (75-99)
[2020-04-12] MEDS: ACETAMINOPHEN TAB 325 MG TAB PO PRN ×2 (01:54→22:10)
[2020-04-12] MEDS: SODIUM CHLORIDE 0.9% 1,000 ML IV SCH ×4 (01:58→18:27)
[2020-04-12] MEDS: PIPERACILLIN-TAZOBACTAM 3.375 GM in SODIUM CHLORIDE 0.9% 100 ML IVPB SCH ×2 (04:05→18:26)
[2020-04-12] MEDS: HYDROmorphone 1 MG/ML 1 ML SYRINGE IVP PRN (04:09)
[2020-04-12 06:30] LABS: Glucose,Whole Blood 147 mg/dL (75-99)
[2020-04-12] MEDS: INSULIN ASPART (NovoLOG) 100 UNIT/ML VIAL SQ SCH ×4 (09:00→21:33)
[2020-04-12] MEDS: HEPARIN SODIUM,PORCINE 5,000 UNIT/ML 1 ML VIAL SQ SCH ×2 (09:12→21:33)
[2020-04-12] MEDS ORDERED: INDOCYANINE GREEN 25 MG VIAL IV STA (09:12)
[2020-04-12] MEDS: PANTOPRAZOLE 40 MG TABLET PO SCH (09:12)
[2020-04-12] MEDS ORDERED: ACETAMINOPHEN TAB 500 MG TAB PO STA (09:12)
--- NOTE | 2020-04-12 09:12 | P.HPADDEND ---
H&P Addendum H&P Addendum Date: 04/12/20 Patient presented with choledocholithiasis. ERCP aborted due to stricture of pancreatic duct. LFTs moderately improved. We'll proceed with robotic cholecystectomy. All questions including benefits versus described.
[2020-04-12 10:42] LABS: ALT 91 U/L (4-34); AST 51 U/L (14-36); African American GFR (CKD) >90 (>60 ml/min/1.73 sqM); Albumin 3.1 g/dL (3.5-5.0); Alkaline Phosphatase 236 U/L (38-126); Anion Gap 9 mmol/L; Blood Urea Nitrogen 16 mg/dL (7-17); Calcium 8.3 mg/dL (8.4-10.2); Carbon Dioxide 18 mmol/L (22-30); Chloride 112 mmol/L (98-107); Glucose 156 mg/dL (74-99); Non-African American GFR(CKD) 80 (>60 ml/min/1.73 sqM); Potassium 4.1 mmol/L (3.5-5.1); Sodium 139 mmol/L (137-145); Total Protein 5.8 g/dL (6.3-8.2)
[2020-04-12 10:46] LABS: HCT 32.2 % (34.0-46.0); HGB 9.7 gm/dL (11.4-16.0); Hypochromasia Marked; MCH 31.3 pg (25.0-35.0); MCHC 30.2 g/dL (31.0-37.0); MCV 103.5 fL (80.0-100.0); Macrocytosis Slight; Mean Platelet Volume 8.6; Platelet Count 220 k/uL (150-450); RBC 3.11 m/uL (3.80-5.40); RDW 14.6 % (11.5-15.5); WBC 10.9 k/uL (3.8-10.6)
[2020-04-12 11:41] LABS: Glucose,Whole Blood 151 mg/dL (75-99)
--- NOTE | 2020-04-12 11:45 | P.PN ---
Subjective Progress Note Date: 04/12/20 HISTORY OF PRESENT ILLNESS This 75-year-old pleasant female patient of Dr. Amaya. She has underlying history of diabetes mellitus type 2, otherwise healthy. Was seen in emergency room secondary to vague abdominal pain, off and on for the past 2 weeks, this has gotten worse over the past 1 week, accompanied by lightheadedness dizziness, fatigue no appetite, patient denies any fever no chills, pain is in the epigastric region 7 out of 10, nonradiating. Patient denies any urine discoloration or stool discoloration, no diarrhea, pain Once in the emergency room, liver function test was noted to be elevated, she slightly jaundice, bili of 3, AST of 600 ALT of 284, alkaline force of 380, ultrasound of the gallbladder showed distended large gallbladder with the previous filled gallbladder, common bile duct is 0.8 cm, common bile duct wall of 0.3 cm, consider cholecystitis, underlying mass any plasm the gallbladder is not excluded CAT scan of the abdomen and pelvis with contrast shows the gallbladder is distended, pancreas is atrophic, common bile duct somewhat promin ent, maybe small density at the neck of the gallbladder, some inflammatory change adjacent to the fundus of the gallbladder, correlate for acute cholecystitis. Patient was admitted, with cholecystitis with choledocholithiasis, acute jaundice, blood cultures are positive for gram- negative bacilli, patient's on IV Zosyn. Consult with Dr. Bunn, and Dr. Perez. 04/09: Patient is currently nothing by mouth but has been tolerating diet. No nausea or vomiting. No fever or chills. Patient currently does not have any abdominal pain. She has been seen by general surgery with plan for cholecyst ectomy as she improves. She has also been seen by GI and she is scheduled for ERCP this morning. She is currently on IV antibiotics in the form of Zosyn. Patient has had lab work improvement since yesterday with white count of 13, hemoglobin 9.2. Total bilirubin 1.6, AST 204, ALT 194, alkaline phosphatase 238. Hemoglobin A1c is 7.5. 04/10: Patient evaluated morning rounds, she reports she is feeling well she denies any nausea, vomiting, or diarrhea. She is still nothing by mouth. ERCP was attempted yesterday, multiple attempts to cannulate the papilla were unsuccessful with suspicion for stenotic papilla. ERCP was then aborted. Patient went for MRCP today. Procedure was tolerated well. Results from the ERCP are pending. 04/11: Patient noted this morning, reports she is feeling well she is tolerating a clear liquid diet. MRCP done yesterday without evidence common duct or proper hepatic duct stone. There was a small site of T2 hyperintensity within the pancreas with IPMN within the differential. Gastroenterology note appreciated recommends repeat imaging in 6 months. Plans for surgery tomorrow. vital signs are stable she's afebrile 97.6, heart rate 54, respiratory 16, blood pressure 149/57. Laboratory values are trending down total bilirubin 1.0 AST 48, ALT 108, alkaline phosphate 233. 04/12: Patient is found sitting in a chair after her shower this morning. She states she slept well last night. She denies having any abdominal pain. She is scheduled for cholecystectomy today. She has been afebrile, heart rate 51, blood pressure 152/78, pulse ox 92% on room air. Repeat blood work reveals W BC 10.9, hemoglobin 9.7, platelet count 220. Chloride 112, CO2 18, blood sugar 156, creatinine 2.74. Liver function tests improving with total bilirubin 1, AST 51, ALT 91, alkaline phosphatase 236. Anticipate possible discharge later today. REVIEW OF SYSTEMS Constitutional: No fever, no chills, no night sweats. No weight change. Denies fatigue. EENT: No headache. No blurred vision or double vision, no loss of vision. Lungs: No shortness of breath, cough, no sputum production. No wheezing. Cardiovascular: No chest pain, no lower extremity edema. No palpitations. No paroxysmal nocturnal dyspnea. No orthopnea. No lightheadedness or dizziness. No syncopal episodes. Abdominal: No abdominal pain at time of evaluation. No nausea, vomiting. No diarrhea. No constipation. No bloody or tarry stools. No loss of appetite. Genitourinary: No dysuria, increased frequency, urgency. No urinary retention. Musculoskeletal: No myalgias. No muscle weakness, no gait dysfunction, no frequent falls. No back pain. No neck pain. Integumentary: No wounds, no lesions. No rash or pruritus. No unusual bruising. No change in hair or nails. Neurologic: No aphasia. No facial droop. Mild confusion. No head injury. No headache. No paralysis. No paresthesia. Psychiatric: No depression. No anxiety. No mood swings. Endocrine: No abnormal blood sugars. No weight change. No excessive sweating or thirst. No cold intolerance. PHYSICAL EXAMINATION Gen: This is a 75-year-old female. Patient is resting in chair and appears to be comfortable and in no acute distress. HEENT: Head is atraumatic, normocephalic. Pupils equal, round. Sclerae is anicteric. NECK: Supple. No JVD. No lymphadenopathy. No thyromegaly. LUNGS: Clear to auscultation. No wheezes or rhonchi. No intercostal retract ions. HEART: Regular rate and rhythm. No murmur. ABDOMEN: Soft. Bowel sounds are present. No masses. No tenderness. EXTREMITIES: No pedal edema. No calf tenderness. NEUROLOGICAL: Patient is awake, alert and oriented x3. Cranial nerves 2 through 12 are grossly intact. ASSESSMENT AND PLAN 1. Acute cholecystitis with choledocholithiasis, and cholestatic jaundice as well as elevation of transaminase, patient will be seen by Dr. Dave and Dr. Bunn, plan for cholecystectomy today. 2. Diabetes mellitus type 2. Hold glimepiride. Continue NovoLog scale. Hemoglobin A1c 7.5. Patient has been hypoglycemic. 3. Acute bacteremia secondary to ascending cholecystitis. Continue Zosyn. 4. Sepsis with gram-negative bacteremia. Continue to monitor lab work closely and await blood culture finalization. 5. GI prophylaxis. Protonix. 6. DVT prophylaxis. Heparin subcu. DISCHARGE PLAN Possibly home later today. Impression and plan of care have been directed as dictated by the signing physician. Keyla Montiel nurse practitioner acting as scribe for signing physician. Objective - Vital Signs Vital signs: Vital Signs Temp 98.1 F 04/12/20 03:00 Pulse 54 L 04/12/20 03:00 Resp 18 04/12/20 03:00 BP 150/69 04/12/20 03:00 Pulse Ox 92 L 04/12/20 03:00 Intake & Output 04/11/20 04/12/20 04/12/20 18:59 06:59 18:59 Other: Voiding Method Toilet Toilet # Voids 1 2 - Labs CBC & Chem 7: 04/12/20 09:29 04/12/20 09:29 Labs: Abnormal Lab Results - Last 24 Hours (Table) 04/11/20 04/11/20 04/11/20 Range/Units 11:45 16:52 20:44 POC Glucose (mg/dL) 163 H 168 H 159 H (75-99) mg/dL 04/12/20 Range/Units 06:28 POC Glucose (mg/dL) 147 H (75-99) mg/dL Microbiology - Last 24 Hours (Table) 04/08/20 12:37 Blood Culture - Preliminary Blood No Growth after 72 hours 04/08/20 12:29 Blood Culture - Preliminary Blood No Growth after 72 hours 04/07/20 19:35 Blood Culture Gram Stain - Final Blood Blood Culture - Final Escherichia coli
[2020-04-12 12:08] LABS: Band Neutrophils % 1 %; Lymphocytes # (M) 1.31 k/uL (1.0-4.8); Metamyelocytes # (M) 0.22 k/uL (0); Metamyelocytes % 2 %; Monocytes # (M) 0.55 k/uL (0-1.0); Myelocytes # (M) 0.65 k/uL (0); Myelocytes % 6 %; Neutrophils % (M) 76 %; Nucleated Red Blood Cells 0 /100 WBC (0-0); Total Cells Counted 200
[2020-04-12] MEDS ORDERED: LACTATED RINGERS 1,000 ML IV ONE (13:35)
[2020-04-12] MEDS ORDERED: GLYCOPYRROLATE 0.2 MG/ML 2 ML VIAL ONE (14:00)
[2020-04-12] MEDS ORDERED: fentaNYL (PF) 50 MCG/ML 2 ML AMP ONE (14:00)
[2020-04-12] MEDS ORDERED: SUCCINYLCHOLINE CHLORIDE 100 MG/5 ML SYR IV ONE (14:00)
[2020-04-12] MEDS ORDERED: LIDOCAINE 1% INJ 10MG/ML (20 ML MDV) ONE (14:00)
[2020-04-12] MEDS ORDERED: HYDROmorphone (PF) 1 MG/ML ONE (14:00)
[2020-04-12] MEDS ORDERED: NEOSTIGMINE 1 MG/ML 10 ML VIAL ONE (14:00)
[2020-04-12] MEDS ORDERED: INDOCYANINE GREEN 25 MG VIAL IV ONE (14:00)
[2020-04-12] MEDS ORDERED: PROPOFOL 10 MG/ML 20 ML VIAL IV ONE (14:00)
[2020-04-12] MEDS ORDERED: MIDAZOLAM 2 MG/2 ML VIAL ONE (14:00)
[2020-04-12] MEDS ORDERED: ROCURONIUM 10 MG/ML (10 ML VIAL) IV ONE (14:00)
[2020-04-12] MEDS ORDERED: LIDOCAINE 1%/EPI 1:200,000 MPF 10 ML VIAL SQ ONE (14:47)
[2020-04-12] MEDS ORDERED: HYDROmorphone 0.5 MG/0.5 ML SYRINGE IVP ONE (17:02)
[2020-04-12] MEDS ORDERED: NALOXONE 0.4 MG/ML 1 ML VIAL IV PRN (17:10)
[2020-04-12 18:21] LABS: Glucose,Whole Blood 175 mg/dL (75-99)
[2020-04-12 21:05] LABS: Glucose,Whole Blood 169 mg/dL (75-99)
[2020-04-13] MEDS: SODIUM CHLORIDE 0.9% 1,000 ML IV SCH ×4 (00:41→23:39)
[2020-04-13] MEDS: PIPERACILLIN-TAZOBACTAM 3.375 GM in SODIUM CHLORIDE 0.9% 100 ML IVPB SCH ×3 (01:24→18:57)
[2020-04-13 06:27] LABS: Glucose,Whole Blood 118 mg/dL (75-99)
[2020-04-13 07:55] LABS: HCT 29.7 % (34.0-46.0); HGB 9.4 gm/dL (11.4-16.0); Hypochromasia Moderate; MCH 32.2 pg (25.0-35.0); MCHC 31.7 g/dL (31.0-37.0); MCV 101.6 fL (80.0-100.0); Macrocytosis Slight; Mean Platelet Volume 8.4; Platelet Count 230 k/uL (150-450); RBC 2.93 m/uL (3.80-5.40); RDW 14.6 % (11.5-15.5)
[2020-04-13] MEDS: INSULIN ASPART (NovoLOG) 100 UNIT/ML VIAL SQ SCH ×4 (08:20→21:16)
[2020-04-13 08:25] LABS: ALT 63 U/L (4-34); AST 39 U/L (14-36); African American GFR (CKD) >90 (>60 ml/min/1.73 sqM); Albumin 2.4 g/dL (3.5-5.0); Alkaline Phosphatase 164 U/L (38-126); Anion Gap 4 mmol/L; Blood Urea Nitrogen 11 mg/dL (7-17); Calcium 6.8 mg/dL (8.4-10.2); Carbon Dioxide 22 mmol/L (22-30); Chloride 114 mmol/L (98-107); Glucose 106 mg/dL (74-99); Non-African American GFR(CKD) 89 (>60 ml/min/1.73 sqM); Potassium 3.2 mmol/L (3.5-5.1); Sodium 140 mmol/L (137-145); Total Protein 4.8 g/dL (6.3-8.2)
[2020-04-13] MEDS: PANTOPRAZOLE 40 MG TABLET PO SCH (08:27)
[2020-04-13] MEDS: HEPARIN SODIUM,PORCINE 5,000 UNIT/ML 1 ML VIAL SQ SCH ×2 (08:27→21:16)
[2020-04-13] MEDS: HYDROmorphone 1 MG/ML 1 ML SYRINGE IVP PRN ×2 (08:54→15:55)
--- NOTE | 2020-04-13 09:12 | P.OP ---
Date of Procedure: 04/12/20 Description of Procedure: SURGEON: TOMAS FARLEY MD PREOPERATIVE DIAGNOSES: 1. Choledocholithiasis with acute cholecystitis due to gallstones 2. Elevated liver enzymes with hyperbilirubinemia 3. Leukocytosis 4. Diabetes type 2, [id number] 5. History of failed ERCP POSTOPERATIVE DIAGNOSES: 1. Gallbladder neoplasm 2. Choledocholithiasis with acute cholecystitis due to gallstones 3. Elevated liver enzymes with hyperbilirubinemia 4. Leukocytosis 5. Diabetes type 2, [id number] 6. Peritoneal adhesions right upper quadrant 7. History of failed ERCP OPERATION: 1. Robotic-assisted da Nanda Xi laparoscopic lysis of adhesions 2. Incisional biopsy gallbladder mass 3. Placement of round of #19 drain right upper quadrant Estimated Blood Loss (ml): 5 Pathology: other (Peritoneal fluid, gallbladder mass incisional biopsy) Condition: stable Disposition: floor Operative Findings: 1. Right upper quadrant mass invading anterior abdominal wall requiring complete excision of the abdominal wall component of the mass 2. Gallbladder completely encased around surrounding tissue including colon with distortion of duodenum and common bile duct structures prohibiting resection 3. Dense chronic adhesions with neoplastic process cannot be excluded of the gallbladder 4. Placement of round #19 drain at biopsy site, right upper quadrant 5. Cholecystectomy deferred for gallbladder neoplasm which will require tertiary care referral for management INDICATIONS: The patient is a 75 year-old female who presented elevated liver e nzymes hyperbilirubinemia and vague abdominal pain. Additional workup was performed menstruated choledocholithiasis with acute cholecystitis. Attempted ERCP was performed however unsuccessful. Surgical intervention with cholecystectomy was described. Robotic assisted laparoscopic approach was described. Benefits and risks of the procedure including but not limited to bleeding, infection, injury to the biliary tree was reviewed. Informed consent was obtained. DESCRIPTION OF PROCEDURE: Patient was brought to the operating room, placed in supine position. After general induction, the abdomen had been prepped and draped in standard sterile fashion. The robotic da Nanda XI system was primed. After a timeout protocol was performed, the patient had been prepped and draped in standard sterile fashion. The patient was injected with indocyanine green. A 5 mm 0 degrees laparoscopic trocar entry was performed along the left upper quadrant. The abdomen insufflated to 15 mmHg pressure which was tolerated well. Diagnostic laparoscopy demonstrated no injury to bowel viscera or mesentery. The omentum and peritoneal adhesions were identified along the right upper quadrant. Next, two 8 mm robotic ports were placed along the right upper abdomen. The camera 8-mm port was maintained along the epigastrium. Another 8 mm port was placed along the left upper abdominal wall after exchanging the 5 mm port. Please note that the ports were placed at least 10 to 15 cm away from the target anatomy of the gallbladder. The robot was docked along the right lateral abdomen. The patient was repositioned in reverse Trendelenburg position with the right side up. Using a grasper for arm 3, a grasper for arm 4, including hook cautery for arm 1, the robotic system was docked and primed as described. Instruments were interchanged by the assistant manager including hook cautery, Bovie cautery and clip appliers. I had sat at the console. Attention was brought to the right upper quadrant where adhesions were addressed using hook cautery. The adhesions were dense and thick with invasion into the right upper quadrant abdominal wall to the layer of muscle. The entire gallbladder was encased and obscured by the transverse colon. Additionally the duodenum, cystic structures were distorted by the dense adhesions about the gallbladder. Using indocyanine green, the common bile duct could not be identified due to the dense adhesions involving the duodenum. No clear border between the liver and gallbladder was identified raising suspicion of underlying malignancy. An incisional biopsy was taken of the right upper quadrant neoplasm using hook cautery near the suspected border of the liver/gallbladder. A small defect emanating bile was identified at the lysis of adhesion site and oversewn using 3-0 Vicryl. As gallbladder neoplasm cannot be excluded including complete distortion of gallbladder not to be including common bile duct and cystic structures, the procedure was aborted with incisional biopsy obtained including peritoneal cultures obtained for cell cytology. The robot was undocked. I re-scrubbed into the case. A round #19 Tao-Aviles drain was entered via the left upper quadrant trocar and placed at the right upper quadrant biopsy site. The drain was tacked to the skin using 2-0 nylon. All pneumoperitoneum instruments were evacuated from the abdominal cavity. The incisions were cleansed using dilute hydrogen peroxide. The incisions were reapproximated using 4-0 Monocryl in an interrupted subcuticular fashion. Please note along the trocar sites, local anesthetic was placed as a field block prior to insertion of all instruments. Liquid glue was applied to the skin. At the end of the procedure needle, sponge, and instrument count had been verified correct by the surgical asst. The patient was transferred to postanesthesia care unit in stable condition.
--- NOTE | 2020-04-13 09:13 | P.PN ---
Progress Note - Text Progress Note Date: 04/12/20 Patient seen and evaluated. Intraoperative findings reviewed including gallbladder neoplasm of uncertain malignant potential. PINKY drain with bile drainage. Patient clinically stable. Pain well-controlled. We'll send for tumor markers. May need PICC line for antibiotic management due to presentation of acute cholecystitis and inflammatory changes of the gallbladder. Referral to tertiary care center advised for presentation of gallbladder neoplasm of uncertain malignant potential
--- NOTE | 2020-04-13 11:00 | P.PN ---
Subjective Progress Note Date: 04/13/20 HISTORY OF PRESENT ILLNESS This 75-year-old pleasant female patient of Dr. Amaya. She has underlying history of diabetes mellitus type 2, otherwise healthy. Was seen in emergency room secondary to vague abdominal pain, off and on for the past 2 weeks, this has gotten worse over the past 1 week, accompanied by lightheadedness dizziness, fatigue no appetite, patient denies any fever no chills, pain is in the epigastric region 7 out of 10, nonradiating. Patient denies any urine discoloration or stool discoloration, no diarrhea, pain Once in the emergency room, liver function test was noted to be elevated, she slightly jaundice, bili of 3, AST of 600 ALT of 284, alkaline force of 380, ultrasound of the gallbladder showed distended large gallbladder with the previous filled gallbladder, common bile duct is 0.8 cm, common bile duct wall of 0.3 cm, consider cholecystitis, underlying mass any plasm the gallbladder is not excluded CAT scan of the abdomen and pelvis with contrast shows the gallbladder is distended, pancreas is atrophic, common bile duct somewhat promin ent, maybe small density at the neck of the gallbladder, some inflammatory change adjacent to the fundus of the gallbladder, correlate for acute cholecystitis. Patient was admitted, with cholecystitis with choledocholithiasis, acute jaundice, blood cultures are positive for gram- negative bacilli, patient's on IV Zosyn. Consult with Dr. Bunn, and Dr. Perez. 04/09: Patient is currently nothing by mouth but has been tolerating diet. No nausea or vomiting. No fever or chills. Patient currently does not have any abdominal pain. She has been seen by general surgery with plan for cholecyst ectomy as she improves. She has also been seen by GI and she is scheduled for ERCP this morning. She is currently on IV antibiotics in the form of Zosyn. Patient has had lab work improvement since yesterday with white count of 13, hemoglobin 9.2. Total bilirubin 1.6, AST 204, ALT 194, alkaline phosphatase 238. Hemoglobin A1c is 7.5. 04/10: Patient evaluated morning rounds, she reports she is feeling well she denies any nausea, vomiting, or diarrhea. She is still nothing by mouth. ERCP was attempted yesterday, multiple attempts to cannulate the papilla were unsuccessful with suspicion for stenotic papilla. ERCP was then aborted. Patient went for MRCP today. Procedure was tolerated well. Results from the ERCP are pending. 04/11: Patient noted this morning, reports she is feeling well she is tolerating a clear liquid diet. MRCP done yesterday without evidence common duct or proper hepatic duct stone. There was a small site of T2 hyperintensity within the pancreas with IPMN within the differential. Gastroenterology note appreciated recommends repeat imaging in 6 months. Plans for surgery tomorrow. vital signs are stable she's afebrile 97.6, heart rate 54, respiratory 16, blood pressure 149/57. Laboratory values are trending down total bilirubin 1.0 AST 48, ALT 108, alkaline phosphate 233. 04/12: Patient is found sitting in a chair after her shower this morning. She states she slept well last night. She denies having any abdominal pain. She is scheduled for cholecystectomy today. She has been afebrile, heart rate 51, blood pressure 152/78, pulse ox 92% on room air. Repeat blood work reveals W BC 10.9, hemoglobin 9.7, platelet count 220. Chloride 112, CO2 18, blood sugar 156, creatinine 2.74. Liver function tests improving with total bilirubin 1, AST 51, ALT 91, alkaline phosphatase 236. Anticipate possible discharge later today. 04/13: Patient went to [facility] for cholecystectomy but gallbladder was found to be encased around surrounding tissue including colon and distortion of the duodenum and common bile duct structures prohibiting resection. Patient underwent lysis of adhesions, excisional biopsy gallbladder mass, placement of drain in the right upper quadrant. There was concern for neoplastic process of the gallbladder. Cholecystectomy was deferred and if patient found to have gallbladder neoplasm she will require tertiary care referral. Patient is seen this morning on the observation unit. She denies any new complaints. No concern for abdominal pain. No nausea or vomiting. She is currently on a low- fat diet. CA 199 and CEA have been ordered. CBC reveals W BC 13.4, hemoglobin 9.4, platelet count 230. Sodium 130, potassium 3.2, chloride 114, CO2 22, BUN 11 creatinine 0.62. Blood sugar running between 106 169. Total bilirubin 1.0, AST 39, ALT 63, alk phosphatase 164. Incentive spirometry added. REVIEW OF SYSTEMS Constitutional: No fever, no chills, no night sweats. No weight change. Denies fatigue. EENT: No headache. No blurred vision or double vision, no loss of vision. Lungs: No shortness of breath, cough, no sputum production. No wheezing. Cardiovascular: No chest pain, no lower extremity edema. No palpitations. No paroxysmal nocturnal dyspnea. No orthopnea. No lightheadedness or dizziness. No syncopal episodes. Abdominal: No abdominal pain at time of evaluation. No nausea, vomiting. No diarrhea. No constipation. No bloody or tarry stools. No loss of appetite. Genitourinary: No dysuria, increased frequency, urgency. No urinary retention. Musculoskeletal: No myalgias. No muscle weakness, no gait dysfunction, no frequent falls. No back pain. No neck pain. Integumentary: No wounds, no lesions. No rash or pruritus. No unusual bruising. No change in hair or nails. Neurologic: No aphasia. No facial droop. Mild confusion. No head injury. No headache. Psychiatric: No depression. No anxiety. No mood swings. Endocrine: Reports abnormal blood sugars. No weight change. No excessive sweating or thirst. No cold intolerance. PHYSICAL EXAMINATION Gen: This is a 75-year-old female. Patient is resting in bed and susan ears to be comfortable and in no acute distress. HEENT: Head is atraumatic, normocephalic. Pupils equal, round. Sclerae is anicteric. NECK: Supple. No JVD. No lymphadenopathy. No thyromegaly. LUNGS: Clear to auscultation. No wheezes or rhonchi. No intercostal retractions. HEART: Regular rate and rhythm. No murmur. ABDOMEN: Soft. Bowel sounds are present. No masses. No tenderness. Surgical ar eas show no signs of infection. PINKY drain with green drainage. EXTREMITIES: No pedal edema. No calf tenderness. NEUROLOGICAL: Patient is awake, alert and oriented x3. Cranial nerves 2 through 12 are grossly intact. ASSESSMENT AND PLAN 1. Acute cholecystitis with choledocholithiasis, and cholestatic jaundice as well as elevation of transaminase, rule out gallbladder neoplasm. Patient is status post lysis of adhesions, excisional biopsy of gallbladder mass and placement of drain. She is currently tolerating a low-fat diet. 2. Diabetes mellitus type 2. Hold glimepiride. Continue NovoLog scale. Hemoglobin A1c 7.5. Patient has been hypoglycemic. 3. Acute bacteremia secondary to ascending cholecystitis. Continue Zosyn. 4. Sepsis with gram-negative bacteremia. Continue to monitor lab work closely and await blood culture finalization. 5. GI prophylaxis. Protonix. 6. DVT prophylaxis. Heparin subcu. DISCHARGE PLAN Possibly home Impression and plan of care have been directed as dictated by the signing physician. Keyla Montiel nurse practitioner acting as scribe for signing physician. Objective - Vital Signs Vital signs: Vital Signs Temp 97.6 F 04/13/20 08:15 Pulse 66 04/13/20 08:15 Resp 16 04/13/20 08:15 BP 171/73 04/13/20 08:15 Pulse Ox 93 L 04/13/20 08:15 Intake & Output 04/12/20 04/13/20 04/13/20 18:59 06:59 18:59 Intake Total 950 Output Total 5 360 Balance 945 -360 Intake: IV 950 Output: Drainage 360 Abdomen 360 Estimated Blood Loss 5 Other: Voiding Method Toilet Toilet # Voids 1 - Labs CBC & Chem 7: 04/13/20 07:37 04/13/20 07:37 Labs: Abnormal Lab Results - Last 24 Hours (Table) 04/12/20 04/12/20 04/12/20 Range/Units 09:29 09:29 11:37 WBC 10.9 H (3.8-10.6) k/uL RBC 3.11 L (3.80-5.40) m/uL Hgb 9.7 L (11.4-16.0) gm/dL Hct 32.2 L (34.0-46.0) % MCV 103.5 H (80.0-100.0) fL MCHC 30.2 L (31.0-37.0) g/dL Neutrophils # (Manual) 8.30 H (1.3-7.7) k/uL Metamyelocytes # (Man) 0.22 H (0) k/uL Myelocytes # (Manual) 0.65 H (0) k/uL Potassium (3.5-5.1) mmol/L Chloride 112 H (98-107) mmol/L Carbon Dioxide 18 L (22-30) mmol/L Glucose 156 H (74-99) mg/dL POC Glucose (mg/dL) 151 H (75-99) mg/dL Calcium 8.3 L (8.4-10.2) mg/dL AST 51 H (14-36) U/L ALT 91 H (4-34) U/L Alkaline Phosphatase 236 H (38-126) U/L Total Protein 5.8 L (6.3-8.2) g/dL Albumin 3.1 L (3.5-5.0) g/dL 04/12/20 04/12/20 04/13/20 Range/Units 18:18 21:01 06:24 WBC (3.8-10.6) k/uL RBC (3.80-5.40) m/uL Hgb (11.4-16.0) gm/dL Hct (34.0-46.0) % MCV (80.0-100.0) fL MCHC (31.0-37.0) g/dL Neutrophils # (Manual) (1.3-7.7) k/uL Metamyelocytes # (Man) (0) k/uL Myelocytes # (Manual) (0) k/uL Potassium (3.5-5.1) mmol/L Chloride (98-107) mmol/L Carbon Dioxide (22-30) mmol/L Glucose (74-99) mg/dL POC Glucose (mg/dL) 175 H 169 H 118 H (75-99) mg/dL Calcium (8.4-10.2) mg/dL AST (14-36) U/L ALT (4-34) U/L Alkaline Phosphatase (38-126) U/L Total Protein (6.3-8.2) g/dL Albumin (3.5-5.0) g/dL 04/13/20 04/13/20 Range/Units 07:37 07:37 WBC 13.4 H (3.8-10.6) k/uL RBC 2.93 L (3.80-5.40) m/uL Hgb 9.4 L (11.4-16.0) gm/dL Hct 29.7 L (34.0-46.0) % MCV 101.6 H (80.0-100.0) fL MCHC (31.0-37.0) g/dL Neutrophils # (Manual) (1.3-7.7) k/uL Metamyelocytes # (Man) (0) k/uL Myelocytes # (Manual) (0) k/uL Potassium 3.2 L (3.5-5.1) mmol/L Chloride 114 H (98-107) mmol/L Carbon Dioxide (22-30) mmol/L Glucose 106 H (74-99) mg/dL POC Glucose (mg/dL) (75-99) mg/dL Calcium 6.8 L (8.4-10.2) mg/dL AST 39 H (14-36) U/L ALT 63 H (4-34) U/L Alkaline Phosphatase 164 H (38-126) U/L Total Protein 4.8 L (6.3-8.2) g/dL Albumin 2.4 L (3.5-5.0) g/dL Microbiology - Last 24 Hours (Table) 04/08/20 12:37 Blood Culture - Preliminary Blood No Growth after 96 hours 04/08/20 12:29 Blood Culture - Preliminary Blood No Growth after 96 hours
[2020-04-13 11:50] LABS: Glucose,Whole Blood 127 mg/dL (75-99)
[2020-04-13 12:06] LABS: Cancer Antigen 19-9 12.4 U/mL (0.0-34.9)
[2020-04-13 12:32] LABS: Carcinoembryonic Antigen 0.6 ng/mL (0.0-4.9)
[2020-04-13] MEDS ORDERED: POTASSIUM CHLORIDE ER 20 MEQ TAB.ER PO STA ×2 (12:34→12:36)
--- NOTE | 2020-04-13 12:37 | P.PN ---
<AshlyLynette - Last Filed: 04/13/20 12:29> Subjective Progress Note Date: 04/13/20 CHIEF COMPLAINT: Abdominal pain HISTORY OF PRESENT ILLNESS: The patient is a 75-year-old female admitted with abnormal liver enzymes and incidental findings of cholecystitis. Patient is status post robotic lysis of adhesions, excisional biopsy of gallbladder mass and placement of drain to the right upper quadrant. Patient is lying in bed comfortably. Denies any significant pain. Denies any nausea or vomiting. She is on a low-fat diet. Afebrile. WBC 13.4 hemoglobin 9.4 potassium 3.2 AST 39 ALT 63 alk phos 164, CA-19-9 12.4 PHYSICAL EXAM: VITAL SIGNS: Reviewed GENERAL: Well-developed in no acute distress. HEENT: No sclera icterus. Extraocular movements grossly intact. Moist buccal mucosa. Head is atraumatic, normocephalic. Hears conversational speech. No nasal drainage. NECK: Supple without lymphadenopathy. CHEST: Non-labored respirations and equal bilateral excursions. CARDIOVASCULAR: Regular rate with regular rhythm. Palpable 2+ radial pulses. ABDOMEN: Soft. Nondistended. PINKY drain has bile drainage MUSCULOSKELETAL: No clubbing or cyanosis. NEUROLOGIC: No focal or lateralizing signs. Cranial nerves II through XII grossly intact. PSYCH: Appropriate affect. Alert and oriented to person, place and time. SKIN: Well perfused. Good skin turgor. 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 Patient is status post robotic lysis of adhesions, excisional biopsy of gallbladder mass and placement of drain to the right upper quadrant. 2. Leukocytosis with acute cholecystitis and inflammatory changes of the gallbladder 2. Hyperbilirubinemia resolved 3. Bacteremia with E. coli like a secondary to the acute cholecystitis 4. Hypokalemia PLAN: -Referral to tertiary care center advised for presentation of gallbladder neoplasm of uncertain malignant potential -PICC line ordered for long-term IV antibiotics. Recommending at least 2 weeks of IV Zosyn -Continue low-fat diet -Replace potassium Physician Kiln Firer Helper note has been reviewed by physician. Signing provider agrees with the documented findings, assessment, and plan of care. Objective - Vital Signs Vital signs: Vital Signs Temp 97.6 F 04/13/20 08:15 Pulse 66 04/13/20 08:15 Resp 16 04/13/20 08:15 BP 171/73 04/13/20 08:15 Pulse Ox 93 L 04/13/20 08:15 Intake & Output 04/12/20 04/13/20 04/13/20 18:59 06:59 18:59 Intake Total 950 Output Total 5 360 110 Balance 945 -360 -110 Intake: IV 950 Output: Drainage 360 110 Abdomen 360 110 Estimated Blood Loss 5 Other: Voiding Method Toilet Toilet Toilet # Voids 1 - Labs CBC & Chem 7: 04/13/20 07:37 04/13/20 07:37 Labs: Abnormal Lab Results - Last 24 Hours (Table) 04/12/20 04/12/20 04/13/20 Range/Units 18:18 21:01 06:24 WBC (3.8-10.6) k/uL RBC (3.80-5.40) m/uL Hgb (11.4-16.0) gm/dL Hct (34.0-46.0) % MCV (80.0-100.0) fL Potassium (3.5-5.1) mmol/L Chloride (98-107) mmol/L Glucose (74-99) mg/dL POC Glucose (mg/dL) 175 H 169 H 118 H (75-99) mg/dL Calcium (8.4-10.2) mg/dL AST (14-36) U/L ALT (4-34) U/L Alkaline Phosphatase (38-126) U/L Total Protein (6.3-8.2) g/dL Albumin (3.5-5.0) g/dL 04/13/20 04/13/20 04/13/20 Range/Units 07:37 07:37 11:48 WBC 13.4 H (3.8-10.6) k/uL RBC 2.93 L (3.80-5.40) m/uL Hgb 9.4 L (11.4-16.0) gm/dL Hct 29.7 L (34.0-46.0) % MCV 101.6 H (80.0-100.0) fL Potassium 3.2 L (3.5-5.1) mmol/L Chloride 114 H (98-107) mmol/L Glucose 106 H (74-99) mg/dL POC Glucose (mg/dL) 127 H (75-99) mg/dL Calcium 6.8 L (8.4-10.2) mg/dL AST 39 H (14-36) U/L ALT 63 H (4-34) U/L Alkaline Phosphatase 164 H (38-126) U/L Total Protein 4.8 L (6.3-8.2) g/dL Albumin 2.4 L (3.5-5.0) g/dL Microbiology - Last 24 Hours (Table) 04/08/20 12:37 Blood Culture - Preliminary Blood No Growth after 96 hours 04/08/20 12:29 Blood Culture - Preliminary Blood No Growth after 96 hours <Rachael Perez N - Last Filed: 04/17/20 06:27> Subjective Patient seen and evaluated with above. Intraoperative findings described to patient with gallbladder neoplasm that will require additional workup. Patient has history of failed ERCP. Recommend transfer to tertiary care center for completion ERCP including additional diagnostic studies for gallbladder neoplasm. Tumor markers sent for further workup. In interim, recommend need IV antibiotics as well as Covid 19 screening prior to transfer. Objective - Vital Signs Vital signs: Vital Signs Temp 98.1 F 04/17/20 02:37 Pulse 65 04/17/20 02:37 Resp 18 04/17/20 02:37 BP 135/75 04/17/20 02:37 Pulse Ox 93 L 04/17/20 02:37 Intake & Output 04/16/20 04/16/20 04/17/20 06:59 18:59 06:59 Output Total 120 105 30 Balance -120 -105 -30 Weight 70.307 kg Output: Drainage 120 105 30 Abdomen 120 105 30 Other: Voiding Method Toilet Toilet Toilet # Voids 2 1 - Labs CBC & Chem 7: 04/16/20 11:11 04/16/20 11:11 Labs: Abnormal Lab Results - Last 24 Hours (Table) 04/16/20 04/16/20 04/16/20 Range/Units 11:11 11:11 11:41 WBC 12.9 H (3.8-10.6) k/uL RBC 3.33 L (3.80-5.40) m/uL Hgb 10.2 L (11.4-16.0) gm/dL Hct 32.6 L (34.0-46.0) % Neutrophils # (Manual) 10.00 H (1.3-7.7) k/uL Lymphocytes # (Manual) 0.77 L (1.0-4.8) k/uL Monocytes # (Manual) 1.81 H (0-1.0) k/uL Metamyelocytes # (Man) 0.13 H (0) k/uL Myelocytes # (Manual) 0.13 H (0) k/uL Potassium 3.0 L (3.5-5.1) mmol/L Glucose 132 H (74-99) mg/dL POC Glucose (mg/dL) 139 H (75-99) mg/dL Calcium 7.7 L (8.4-10.2) mg/dL Total Bilirubin 1.5 H (0.2-1.3) mg/dL Alkaline Phosphatase 193 H (38-126) U/L Total Protein 5.2 L (6.3-8.2) g/dL Albumin 2.7 L (3.5-5.0) g/dL 04/16/20 04/16/20 Range/Units 16:31 21:21 WBC (3.8-10.6) k/uL RBC (3.80-5.40) m/uL Hgb (11.4-16.0) gm/dL Hct (34.0-46.0) % Neutrophils # (Manual) (1.3-7.7) k/uL Lymphocytes # (Manual) (1.0-4.8) k/uL Monocytes # (Manual) (0-1.0) k/uL Metamyelocytes # (Man) (0) k/uL Myelocytes # (Manual) (0) k/uL Potassium (3.5-5.1) mmol/L Glucose (74-99) mg/dL POC Glucose (mg/dL) 122 H 119 H (75-99) mg/dL Calcium (8.4-10.2) mg/dL Total Bilirubin (0.2-1.3) mg/dL Alkaline Phosphatase (38-126) U/L Total Protein (6.3-8.2) g/dL Albumin (3.5-5.0) g/dL Assessment and Plan (1) Acute cholecystitis Current Visit: Yes Status: Acute Code(s): K81.0 - ACUTE CHOLECYSTITIS SNOMED Code(s): 46101020 (2) Hyperbilirubinemia Current Visit: Yes Status: Acute Code(s): E80.6 - OTHER DISORDERS OF B ILIRUBIN METABOLISM SNOMED Code(s): 62719900 (3) Diabetes type 2, uncontrolled Current Visit: Yes Status: Acute Code(s): E11.65 - TYPE 2 DIABETES MELLITUS WITH HYPERGLYCEMIA SNOMED Code(s): 145765282 (4) Lactic acidosis Current Visit: Yes Status: Acute Code(s): E87.2 - ACIDOSIS SNOMED Code(s): 09990198 (5) Abnormal endoscopic retrograde cholangiopancreatography (ERCP) Current Visit: Yes Status: Acute Code(s): R93.2 - ABNORMAL FINDINGS ON DX IMAGING OF LIVER AND BILIARY TRACT SNOMED Code(s): 079934217
[2020-04-13 12:44] LABS: Band Neutrophils % 1 %; Eosinophils # (M) 0.13 k/uL (0-0.7); Metamyelocytes # (M) 0.27 k/uL (0); Metamyelocytes % 2 %; Myelocytes # (M) 0.67 k/uL (0); Myelocytes % 5 %; Neutrophils % (M) 67 %; Nucleated Red Blood Cells 1 /100 WBC (0-0); Total Cells Counted 200
[2020-04-13 12:45] LABS: Lymphocytes # (M) 1.86 k/uL (1.0-4.8); WBC 13.3 k/uL (3.8-10.6)
[2020-04-13] MEDS ORDERED: LIDOCAINE 1% INJ 10MG/ML (20 ML MDV) SQ ONE (15:21)
--- NOTE | 2020-04-13 16:11 | IR ---
EXAMINATION TYPE: IR cvc insert >=5 years DATE OF EXAM: 04/13/2020 COMPARISON: NONE CLINICAL HISTORY: Infection, status post cholecystectomy, Needs long-term intravenous access for anti biotics. PROCEDURE: Hand hygiene obtained with soap and water and alcohol-based hand rub. After informed consent, the skin overlying the left basilic vein was localized with ultrasound and no jarrett to be compressible and patent. An ultrasound image was obtained and submitted on the patient's c montelongo. The overlying skin was prepped and draped and Lidocaine was used for local anesthesia. A skin bettina was made with a scalpel. Access was gained to the vein under ultrasound guidance with a 21 gau ge needle and a 0.018 inch wire was advanced. Access site was dilated with Peel-Away sheath and cath eter tailored to the appropriate length and advanced such that the distal tip is at the cavoatrial ju nction. Spot image was obtained verifying placement. Catheter was fixed to the skin and a sterile d ressing was placed following hemostasis. Catheter was aspirated and flushed with saline. Patient wa s discharged in stable condition without complication. Maximal barrier technique is utilized. Ultras ound image is documented on the chart. Ultrasound used with sterile technique. Fluoro time and fluoroscopic images submitted to document procedure: 501 intraoperative images, 0.9 m inutes fluoroscopy time IMPRESSION: STATUS POST ULTRASOUND AND FLUOROSCOPIC GUIDED PICC LINE PLACEMENT, READY FOR USE. THIS PROCEDURE WAS PERFORMED BY THE UNDERSIGNED.
--- NOTE | 2020-04-13 16:11 | P.PN ---
Progress Note - Text Progress Note Date: 04/13/20 Family update provided to the patient's son Baltazar. I contacted her son to go over her care plan. Patient was admitted with elevated white blood cell count including elevated liver enzymes suspicious for choledocholithiasis with acute cholecystitis. Patient did not have any abdominal pain during my assessment with her. She was scheduled to undergo an ERCP. The ERCP was aborted due to anatomical abnormalities. As her liver enzymes improved, patient was taken to the operating room for attempted cholecystectomy. Intraoperative findings were suspicious for a malignancy of the gallbladder where the gallbladder was eroding through the abdominal wall to the muscle highly suspicious for malignant neoplasm. The gallbladder was completely encased in surrounding tissue completely obscuring the biliary structures. As a result of these findings, gallbladder neoplasm cannot be excluded and will need potential partial liver resection. A drain was placed after a biopsy. Today, her PINKY is draining bile. Her LFTs are improving daily. Patient denies any moderate abdominal pain. I reviewed with her son the technical challenges of inability to do an ERCP including diagnosis of gallbladder neoplasm would require more sophisticated studies not available M Shirley Dumont. Referral to a tertiary care center is being advised to address gallbladder malignancy including proceeding with ERCP for diagnosis. In the interim, patient will undergo coronavirus testing for transfer. Also recommend PICC line with IV antibiotics as patient has pre-existing leukocytosis and infection prior to her surgery. All questions were addressed to the patient's son. Patient similarly was given overview of the summary of her care plan in the presence of her nurse Ziyad. Overall, transfer to a tertiary care center advised for elevated treatment of gallbladder neoplasm including need for ERCP at tertiary care center.
[2020-04-13 16:50] LABS: Glucose,Whole Blood 136 mg/dL (75-99)
[2020-04-13 20:24] LABS: Glucose,Whole Blood 142 mg/dL (75-99)
[2020-04-13] MEDS: ACETAMINOPHEN TAB 325 MG TAB PO PRN (21:16)
[2020-04-14] MEDS: PIPERACILLIN-TAZOBACTAM 3.375 GM in SODIUM CHLORIDE 0.9% 100 ML IVPB SCH ×3 (02:35→19:07)
[2020-04-14 06:22] LABS: Glucose,Whole Blood 120 mg/dL (75-99)
[2020-04-14] MEDS: SODIUM CHLORIDE 0.9% 1,000 ML IV SCH ×3 (06:56→23:59)
[2020-04-14] MEDS: INSULIN ASPART (NovoLOG) 100 UNIT/ML VIAL SQ SCH ×4 (08:15→21:15)
[2020-04-14] MEDS: HEPARIN SODIUM,PORCINE 5,000 UNIT/ML 1 ML VIAL SQ SCH ×2 (08:49→21:15)
[2020-04-14] MEDS: PANTOPRAZOLE 40 MG TABLET PO SCH (08:49)
--- NOTE | 2020-04-14 08:59 | P.PN ---
Subjective Progress Note Date: 04/14/20 Principal diagnosis: Abdominal pain, acute cholecystitis and cholelithiasis, ascending cholangitis, possible gallbladder cancer. This 75-year-old pleasant female patient of Dr. Amaya. She has underlying history of diabetes mellitus type 2, otherwise healthy. Was seen in emergency room secondary to vague abdominal pain, off and on for the past 2 weeks, this has gotten worse over the past 1 week, accompanied by lightheadedness dizziness, fatigue no appetite, patient denies any fever no chills, pain is in the epigastric region 7 out of 10, nonradiating. Patient denies any urine discoloration or stool discoloration, no diarrhea, pain Once in the emergency room, liver function test was noted to be elevated, she slightly jaundice, bili of 3, AST of 600 ALT of 284, alkaline force of 380, ultrasound of the gallbladder showed distended large gallbladder with the previous filled gallbladder, common bile duct is 0.8 cm, common bile duct wall of 0.3 cm, consider cholecystitis, underlying mass any plasm the gallbladder is not excluded CAT scan of the abdomen and pelvis with contrast shows the gallbladder is distended, pancreas is atrophic, common bile duct somewhat pro minent, maybe small density at the neck of the gallbladder, some inflammatory change adjacent to the fundus of the gallbladder, correlate for acute cholecystitis. Patient was admitted, with cholecystitis with choledocholithiasis, acute jaundice, blood cultures are positive for gram- negative bacilli, patient's on IV Zosyn. Consult with Dr. Bunn, and Dr. Perez. 04/09: Patient is currently nothing by mouth but has been tolerating diet. No nausea or vomiting. No fever or chills. Patient currently does not have any abdominal pain. She has been seen by general surgery with plan for cholec ystectomy as she improves. She has also been seen by GI and she is scheduled for ERCP this morning. She is currently on IV antibiotics in the form of Zosyn. Patient has had lab work improvement since yesterday with white count of 13, hemoglobin 9.2. Total bilirubin 1.6, AST 204, ALT 194, alkaline phosphatase 238. Hemoglobin A1c is 7.5. 04/10: Patient evaluated morning rounds, she reports she is feeling well she denies any nausea, vomiting, or diarrhea. She is still nothing by mouth. ERCP w as attempted yesterday, multiple attempts to cannulate the papilla were unsuccessful with suspicion for stenotic papilla. ERCP was then aborted. Patient went for MRCP today. Procedure was tolerated well. Results from the ERCP are pending. 04/11: Patient noted this morning, reports she is feeling well she is tolerating a clear liquid diet. MRCP done yesterday without evidence common duct or proper hepatic duct stone. There was a small site of T2 hyperintensity within the pancreas with IPMN within the differential. Gastroenterology note appreciated recommends repeat imaging in 6 months. Plans for surgery tomorrow. vital signs are stable she's afebrile 97.6, heart rate 54, respiratory 16, blood pressure 149/57. Laboratory values are trending down total bilirubin 1.0 AST 48, ALT 108, alkaline phosphate 233. 04/12: Patient is found sitting in a chair after her shower this morning. She states she slept well last night. She denies having any abdominal pain. She is scheduled for cholecystectomy today. She has been afebrile, heart rate 51, blood pressure 152/78, pulse ox 92% on room air. Repeat blood work reveals W BC 10.9, hemoglobin 9.7, platelet count 220. Chloride 112, CO2 18, blood sugar 156, creatinine 2.74. Liver function tests improving with total bilirubin 1, AST 51, ALT 91, alkaline phosphatase 236. Anticipate possible discharge later today. 04/13: Patient went to [facility] for cholecystectomy but gallbladder was found to be encased around surrounding tissue including colon and distortion of the duodenum and common bile duct structures prohibiting resection. Patient underwent lysis of adhesions, excisional biopsy gallbladder mass, placement of drain in the [facility] upper quadrant. There was concern for neoplastic process of the gallbladder. Cholecystectomy was deferred and if patient found to have gallbladder neoplasm she will require tertiary care referral. Patient is seen this morning on the observation unit. She denies any new complaints. No concer n for abdominal pain. No nausea or vomiting. She is currently on a low-fat diet. CA 199 and CEA have been ordered. CBC reveals W BC 13.4, hemoglobin 9.4, platelet count 230. Sodium 130, potassium 3.2, chloride 114, CO2 22, BUN 11 creatinine 0.62. Blood sugar running between 106 169. Total bilirubin 1.0, AST 39, ALT 63, alk phosphatase 164. Incentive spirometry added. 04/14 her COVID test came back negative, patient will be transferred to [facility] for possible surgery and management awaiting for bed from [facility]. Objective - Vital Signs Vital signs: Vital Signs Temp 98.1 F 04/14/20 08:02 Pulse 63 04/14/20 08:18 Resp 16 04/14/20 08:18 BP 150/76 04/14/20 08:02 Pulse Ox 96 04/14/20 08:02 Intake & Output 04/13/20 04/14/20 04/14/20 18:59 06:59 18:59 Intake Total 250 Output Total 330 350 Balance -330 -350 250 Intake: Oral 250 Output: Drainage 330 350 Abdomen 330 350 Other: Voiding Method Toilet Toilet Toilet # Voids 1 1 REVIEW OF SYSTEMS Constitutional: No fever, no chills, no night sweats. No weight change. Denies fatigue. EENT: No headache. No blurred vision or double vision, no loss of vision. Lungs: No shortness of breath, cough, no sputum production. No wheezing. Cardiovascular: No chest pain, no lower extremity edema. No palpitations. No paroxysmal nocturnal dyspnea. No orthopnea. No lightheadedness or dizziness. No syncopal episodes. Abdominal: No abdominal pain at time of evaluation. No nausea, vomiting. No diarrhea. No constipation. No bloody or tarry stools. No loss of appetite. Genitourinary: No dysuria, increased frequency, urgency. No urinary retention. Musculoskeletal: No myalgias. No muscle weakness, no gait dysfunction, no frequent falls. No back pain. No neck pain. Integumentary: No wounds, no lesions. No rash or pruritus. No unusual bruising. No change in hair or nails. Neurologic: No aphasia. No facial droop. Mild confusion. No head injury. No headache. Psychiatric: No depression. No anxiety. No mood swings. Endocrine: Reports abnormal blood sugars. No weight change. No excessive sweating or thirst. No cold intolerance. PHYSICAL EXAMINATION Gen: This is a 75-year-old female. Patient is resting in bed and appears to be comfortable and in no acute distress. HEENT: Head is atraumatic, normocephalic. Pupils equal, round. Sclerae is anicteric. NECK: Supple. No JVD. No lymphadenopathy. No thyromegaly. LUNGS: Clear to auscultation. No wheezes or rhonchi. No intercostal retract ions. HEART: Regular rate and rhythm. No murmur. ABDOMEN: Soft. Bowel sounds are present. No masses. No tenderness. Surgical areas show no signs of infection. PINKY drain with green drainage. EXTREMITIES: No pedal edema. No calf tenderness. NEUROLOGICAL: Patient is awake, alert and oriented x3. Cranial nerves 2 through 12 are grossly intact. - Labs CBC & Chem 7: 04/13/20 07:37 04/13/20 07:37 Labs: Abnormal Lab Results - Last 24 Hours (Table) 04/13/20 04/13/20 04/13/20 Range/Units 07:37 11:48 16:49 WBC 13.3 H (3.8-10.6) k/uL Neutrophils # (Manual) 9.00 H (1.3-7.7) k/uL Monocytes # (Manual) 1.60 H (0-1.0) k/uL Metamyelocytes # (Man) 0.27 H (0) k/uL Myelocytes # (Manual) 0.67 H (0) k/uL Nucleated RBCs 1 H (0-0) /100 WBC POC Glucose (mg/dL) 127 H 136 H (75-99) mg/dL 04/13/20 04/14/20 Range/Units 20:23 06:20 WBC (3.8-10.6) k/uL Neutrophils # (Manual) (1.3-7.7) k/uL Monocytes # (Manual) (0-1.0) k/uL Metamyelocytes # (Man) (0) k/uL Myelocytes # (Manual) (0) k/uL Nucleated RBCs (0-0) /100 WBC POC Glucose (mg/dL) 142 H 120 H (75-99) mg/dL Microbiology - Last 24 Hours (Table) 04/08/20 12:37 Blood Culture - Preliminary Blood No Growth after 120 hours 04/08/20 12:29 Blood Culture - Preliminary Blood No Growth after 120 hours Assessment and Plan Assessment: ASSESSMENT AND PLAN 1. Acute cholecystitis with choledocholithiasis, and cholestatic jaundice as well as elevation of transaminase, rule out gallbladder neoplasm. Patient is status post lysis of adhesions, excisional biopsy of gallbladder mass and placement of drain. She is currently tolerating a low-fat diet. 2. Diabetes mellitus type 2. Hold glimepiride. Continue NovoLog scale. Hemoglobin A1c 7.5. Patient has been hypoglycemic. 3. Acute bacteremia secondary to ascending cholecystitis. Continue Zosyn. 4. Sepsis with gram-negative bacteremia. Continue to monitor lab work closely and await blood culture finalization. 5 possible gallbladder cancer: With finding consistent with major abnormality might be CVA patient will be transferred to [facility] for further management might require modified Whipple. 6. GI prophylaxis. Protonix. 7. DVT prophylaxis. Heparin subcu. Discharge planning: Patient is waiting to go down to [facility] for possible modified Whipple or further management might require surgical intervention or procedure with biopsy under GI oncology service.
--- NOTE | 2020-04-14 11:33 | P.PN ---
Progress Note - Text Progress Note Date: 04/14/20 Patient's sleeping in her bed. The parachuting transferred to for Hospital today for further care and management of her gallbladder abdominal wall mass.
[2020-04-14 11:50] LABS: Glucose,Whole Blood 148 mg/dL (75-99)
[2020-04-14 16:39] LABS: Glucose,Whole Blood 156 mg/dL (75-99)
[2020-04-14 21:16] LABS: Glucose,Whole Blood 120 mg/dL (75-99)
[2020-04-15] MEDS: PIPERACILLIN-TAZOBACTAM 3.375 GM in SODIUM CHLORIDE 0.9% 100 ML IVPB SCH ×3 (02:24→17:34)
[2020-04-15] MEDS: SODIUM CHLORIDE 0.9% 1,000 ML IV SCH ×3 (06:22→17:34)
[2020-04-15 06:29] LABS: Glucose,Whole Blood 111 mg/dL (75-99)
[2020-04-15] MEDS: INSULIN ASPART (NovoLOG) 100 UNIT/ML VIAL SQ SCH ×4 (07:32→20:26)
[2020-04-15] MEDS: HEPARIN SODIUM,PORCINE 5,000 UNIT/ML 1 ML VIAL SQ SCH ×2 (07:41→20:26)
[2020-04-15] MEDS: PANTOPRAZOLE 40 MG TABLET PO SCH (07:41)
--- NOTE | 2020-04-15 09:17 | XR ---
EXAMINATION TYPE: XR chest 2V DATE OF EXAM: 04/15/2020 COMPARISON: NONE HISTORY: Chest pain TECHNIQUE: Frontal and lateral views of the chest are obtained. FINDINGS: Small patchy density right lower lobe may reflect developing infiltrate. Correlate clinically and pro connor studies are recommended. No evidence for pneumothorax. No pleural effusion. The cardiac silhouette size is within normal limits. The osseous structures are grossly intact. IMPRESSION: 1. Small patchy density right lower lobe may reflect developing infiltrate. Correlate clinically and progress studies are recommended.
--- NOTE | 2020-04-15 09:50 | P.PN ---
Progress Note - Text Progress Note Date: 04/15/20 Patient been stable. She is awaiting transfer to once a surgical bed is available.
[2020-04-15 10:39] LABS: Glucose,Whole Blood 141 mg/dL (75-99)
--- NOTE | 2020-04-15 12:00 | P.PN ---
Subjective Progress Note Date: 04/15/20 Principal diagnosis: Abdominal pain, acute cholecystitis and cholelithiasis, ascending cholangitis, possible gallbladder cancer. New-onset of chest pain and right sided infiltrate This 75-year-old pleasant female patient of Dr. Amaya. She has underlying history of diabetes mellitus type 2, otherwise healthy. Was seen in emergency room secondary to vague abdominal pain, off and on for the past 2 weeks, this has gotten worse over the past 1 week, accompanied by lightheadedness dizziness, fatigue no appetite, patient denies any fever no chills, pain is in the epigastric region 7 out of 10, nonradiating. Patient denies any urine discoloration or stool discoloration, no diarrhea, pain Once in the emergency room, liver function test was noted to be elevated, she slightly jaundice, bili of 3, AST of 600 ALT of 284, alkaline force of 380, ultrasound of the gallbladder showed distended large gallbladder with the previous filled gallbladder, common bile duct is 0.8 cm, common bile duct wall of 0.3 cm, consider cholecystitis, underlying mass any plasm the gallbladder is not excluded CAT scan of the abdomen and pelvis with contrast shows the gallbladder is distended, pancreas is atrophic, common bile duct somewhat prominent, maybe small density at the neck of the gallbladder, some inflammatory change adjacent to the fundus of the gallbladder, correlate for acute cholecystitis. Patient was admitted, with cholecystitis with choledocholithiasis, acute jaundice, blood cultures are positive for gram- negative bacilli, patient's on IV Zosyn. Consult with Dr. Bunn, and Dr. Perez. 04/09: Patient is currently nothing by mouth but has been tolerating diet. No nausea or vomiting. No fever or chills. Patient currently does not have any abdominal pain. She has been seen by general surgery with plan for cholecystectomy as she improves. She has also been seen by GI and she is scheduled for ERCP this morning. She is currently on IV antibiotics in the form of Zosyn. Patient has had lab work improvement since yesterday with white count of 13, hemoglobin 9.2. Total bilirubin 1.6, AST 204, ALT 194, alkaline phosphatase 238. Hemoglobin A1c is 7.5. 04/10: Patient evaluated morning rounds, she reports she is feeling well she denies any nausea, vomiting, or diarrhea. She is still nothing by mouth. ERCP was attempted yesterday, multiple attempts to cannulate the papilla were unsuccessful with suspicion for stenotic papilla. ERCP was then aborted. Matthew rdz went for MRCP today. Procedure was tolerated well. Results from the ERCP are pending. 04/11: Patient noted this morning, reports she is feeling well she is tolerating a clear liquid diet. MRCP done yesterday without evidence common duct or proper hepatic duct stone. There was a small site of T2 hyperintensity within the pancreas with IPMN within the differential. Gastroenterology note appreciated recommends repeat imaging in 6 months. Plans for surgery tomorrow. vital signs are stable she's afebrile 97.6, heart rate 54, respiratory 16, blood pressure 149/57. Laboratory values are trending down total bilirubin 1.0 AST 48, ALT 108, alkaline phosphate 233. 04/12: Patient is found sitting in a chair after her shower this morning. She states she slept well last night. She denies having any abdominal pain. She is scheduled for cholecystectomy today. She has been afebrile, heart rate 51, blood pressure 152/78, pulse ox 92% on room air. Repeat blood work reveals W BC 10.9, hemoglobin 9.7, platelet count 220. Chloride 112, CO2 18, blood sugar 156, creatinine 2.74. Liver function tests improving with total bilirubin 1, AST 51, ALT 91, alkaline phosphatase 236. Anticipate possible discharge later today. 04/13: Patient went to [facility] for cholecystectomy but gallbladder was found to be encased around surrounding tissue including colon and distortion of the duodenum and common bile duct structures prohibiting resection. Patient underwent lysis of adhesions, excisional biopsy gallbladder mass, placement of drain in the right upper quadrant. There was concern for neoplastic process of the gallbladder. Cholecystectomy was deferred and if patient found to have gallbla dder neoplasm she will require tertiary care referral. Patient is seen this morning on the observation unit. She denies any new complaints. No concern for abdominal pain. No nausea or vomiting. She is currently on a low-fat diet. CA 199 and CEA have been ordered. CBC reveals W BC 13.4, hemoglobin 9.4, platelet count 230. Sodium 130, potassium 3.2, chloride 114, CO2 22, BUN 11 creatinine 0 .62. Blood sugar running between 106 169. Total bilirubin 1.0, AST 39, ALT 63, alk phosphatase 164. Incentive spirometry added. 04/14 her COVID test came back negative, patient will be transferred to [facility] for possible surgery and management awaiting for bed from [facility]. 04/15: Still waiting to be transferred to [facility] she developed to have midsternal chest pain this morning her CK troponin came back negative for along with EKG doesn't show any change chest x-ray was performed and it showed slight infiltrate more like atelectasis or scar tissue on the right lower lobe close to the area which she had her surgery on no sign of active infection in the meanwhile she still on treatment for ascending cholangitis with Zosyn which will have better coverage for the right side pneumonitis. Objective - Vital Signs Vital signs: Vital Signs Temp 98.1 F 04/15/20 07:38 Pulse 77 04/15/20 07:38 Resp 18 04/15/20 07:38 BP 145/55 04/15/20 07:38 Pulse Ox 98 04/15/20 07:38 Intake & Output 04/14/20 04/15/20 04/15/20 18:59 06:59 18:59 Intake Total 250 250 250 Output Total 150 Balance 250 100 250 Intake: Oral 250 250 250 Output: Drainage 150 Abdomen 150 Other: Voiding Method Toilet Toilet Toilet # Voids 1 1 1 - Exam REVIEW OF SYSTEMS Constitutional: No fever, no chills, no night sweats. No weight change. Denies fatigue. EENT: No headache. No blurred vision or double vision, no loss of vision. Lungs: No shortness of breath, cough, no sputum production. No wheezing. Cardiovascular: No chest pain, no lower extremity edema. No palpitations. No paroxysmal nocturnal dyspnea. No orthopnea. No lightheadedness or dizziness. No syncopal episodes. Abdominal: No abdominal pain at time of evaluation. No nausea, vomiting. No diarrhea. No constipation. No bloody or tarry stools. No loss of appetite. Genitourinary: No dysuria, increased frequency, urgency. No urinary retention. Musculoskeletal: No myalgias. No muscle weakness, no gait dysfunction, no frequent falls. No back pain. No neck pain. Integumentary: No wounds, no lesions. No rash or pruritus. No unusual bruising. No change in hair or nails. Neurologic: No aphasia. No facial droop. Mild confusion. No head injury. No headache. Psychiatric: No depression. No anxiety. No mood swings. Endocrine: Reports abnormal blood sugars. No weight change. No excessive sweating or thirst. No cold intolerance. PHYSICAL EXAMINATION Gen: This is a 75-year-old female. Patient is resting in bed and appears to be comfortable and in no acute distress. HEENT: Head is atraumatic, normocephalic. Pupils equal, round. Sclerae is anicteric. NECK: Supple. No JVD. No lymphadenopathy. No thyromegaly. LUNGS: Clear to auscultation. No wheezes or rhonchi. No intercostal retractions. HEART: Regular rate and rhythm. No murmur. ABDOMEN: Soft. Bowel sounds are present. No masses. No tenderness. Surgical areas show no signs of infection. PINKY drain with green drainage. EXTREMITIES: No pedal edema. No calf tenderness. NEUROLOGICAL: Patient is awake, alert and oriented x3. Cranial nerves 2 through 12 are grossly intact. - Labs CBC & Chem 7: 04/13/20 07:37 04/13/20 07:37 Labs: Abnormal Lab Results - Last 24 Hours (Table) 04/14/20 04/14/20 04/15/20 Range/Units 16:38 21:15 06:24 POC Glucose (mg/dL) 156 H 120 H 111 H (75-99) mg/dL 04/15/20 Range/Units 10:38 POC Glucose (mg/dL) 141 H (75-99) mg/dL Microbiology - Last 24 Hours (Table) 04/08/20 12:37 Blood Culture - Final Blood No Growth after 144 hours 04/08/20 12:29 Blood Culture - Final Blood No Growth after 144 hours Assessment and Plan Assessment: ASSESSMENT AND PLAN 1. Acute cholecystitis with choledocholithiasis, and cholestatic jaundice as well as elevation of transaminase, rule out gallbladder neoplasm. Patient is status post lysis of adhesions, excisional biopsy of gallbladder mass and placement of drain. She is currently tolerating a low-fat diet. Post February for gallbladder surgery was in successful with so much scar tissue and possible gallbladder cancer a Chin 2. Diabetes mellitus type 2. Hold glimepiride. Continue NovoLog scale. Hemoglobin A1c 7.5. Patient has been hypoglycemic. 3. Acute bacteremia secondary to ascending cholecystitis. Continue Zosyn. 4. Sepsis with gram-negative bacteremia. Continue to monitor lab work closely and await blood culture finalization. 5 possible gallbladder cancer: With finding consistent with major abnormality might be CVA patient will be transferred to [facility] for further management might require modified Whipple. 6 possible right-sided pneumonitis: Patient chest x-ray was positive remain on Zosyn at this point. 7 chest pain: None angina basis with troponin negative and EKG didn't show any change. 8. GI prophylaxis. Protonix. 9. DVT prophylaxis. Heparin subcu. Discharge planning: Again patient is still waiting for transfer to [facility] waiting for bed assignment.
[2020-04-15 16:43] LABS: Glucose,Whole Blood 120 mg/dL (75-99)
[2020-04-15 19:53] LABS: Glucose,Whole Blood 148 mg/dL (75-99)
[2020-04-15] MEDS: ACETAMINOPHEN TAB 325 MG TAB PO PRN (20:25)
[2020-04-16] MEDS: PIPERACILLIN-TAZOBACTAM 3.375 GM in SODIUM CHLORIDE 0.9% 100 ML IVPB SCH ×3 (01:54→17:03)
[2020-04-16] MEDS: SODIUM CHLORIDE 0.9% 1,000 ML IV SCH ×2 (03:43→12:34)
[2020-04-16 06:12] LABS: Glucose,Whole Blood 106 mg/dL (75-99)
[2020-04-16] MEDS: INSULIN ASPART (NovoLOG) 100 UNIT/ML VIAL SQ SCH ×4 (07:55→21:31)
[2020-04-16] MEDS: PANTOPRAZOLE 40 MG TABLET PO SCH (08:01)
[2020-04-16] MEDS: HEPARIN SODIUM,PORCINE 5,000 UNIT/ML 1 ML VIAL SQ SCH ×2 (08:01→21:26)
[2020-04-16 11:43] LABS: Glucose,Whole Blood 139 mg/dL (75-99)
[2020-04-16 11:52] LABS: HCT 32.6 % (34.0-46.0); HGB 10.2 gm/dL (11.4-16.0); Hypochromasia Slight; MCH 30.8 pg (25.0-35.0); MCHC 31.5 g/dL (31.0-37.0); MCV 97.8 fL (80.0-100.0); Mean Platelet Volume 8.3; Platelet Count 233 k/uL (150-450); RBC 3.33 m/uL (3.80-5.40); RDW 15.3 % (11.5-15.5); WBC 12.9 k/uL (3.8-10.6)
[2020-04-16 11:55] LABS: ALT 28 U/L (4-34); AST 25 U/L (14-36); African American GFR (CKD) >90 (>60 ml/min/1.73 sqM); Albumin 2.7 g/dL (3.5-5.0); Alkaline Phosphatase 193 U/L (38-126); Anion Gap 7 mmol/L; Blood Urea Nitrogen 7 mg/dL (7-17); Calcium 7.7 mg/dL (8.4-10.2); Carbon Dioxide 28 mmol/L (22-30); Chloride 103 mmol/L (98-107); Glucose 132 mg/dL (74-99); Non-African American GFR(CKD) 87 (>60 ml/min/1.73 sqM); Sodium 138 mmol/L (137-145); Total Bilirubin 1.5 mg/dL (0.2-1.3); Total Protein 5.2 g/dL (6.3-8.2)
[2020-04-16] MEDS ORDERED: POTASSIUM CHLORIDE 20 MEQ in WATER FOR INJECTION 1 100ML.BAG IVPB STA (12:33)
[2020-04-16] MEDS ORDERED: POTASSIUM CHLORIDE ER 20 MEQ TAB.ER PO STA (12:33)
--- NOTE | 2020-04-16 12:35 | P.PN ---
<Lynette Limon - Last Filed: 04/16/20 12:29> Subjective Progress Note Date: 04/16/20 CHIEF COMPLAINT: Abdominal pain HISTORY OF PRESENT ILLNESS: The patient is a 75-year-old female admitted with abnormal liver enzymes and incidental findings of cholecystitis. Patient is status post robotic lysis of adhesions, excisional biopsy of gallbladder mass and placement of drain to the right upper quadrant. She is on a low-fat diet. Denies any abdominal pain. Denies any nausea vomiting. She reports having bowel movements. Patient has PICC line in place for antibiotics. Awaiting bed availability at [facility]. Afebrile. CA-19-9 12.4 WBC 12.4 hemoglobin 10.2 potassium 3.0 total bili 0.1 0.5 AST 25 ALT 28 Ordonez virus negative CEA 0.6 PHYSICAL EXAM: VITAL SIGNS: Reviewed GENERAL: Well-developed in no acute distress. HEENT: No sclera icterus. Extraocular movements grossly intact. Moist buccal mucosa. Head is atraumatic, normocephalic. Hears conversational speech. No nasal drainage. NECK: Supple without lymphadenopathy. CHEST: Non-labored respirations and equal bilateral excursions. CARDIOVASCULAR: Regular rate with regular rhythm. Palpable 2+ radial pulses. ABDOMEN: Soft. Nondistended. PINKY drain has bile drainage MUSCULOSKELETAL: No clubbing or cyanosis. NEUROLOGIC: No focal or lateralizing signs. Cranial nerves II through XII grossly intact. PSYCH: Appropriate affect. Pleasantly confused SKIN: Well perfused. Good skin turgor. 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 Patient is status post robotic lysis of adhesions, excisional biopsy of gallbladder mass and placement of drain to the right upper quadrant. 2. Leukocytosis with acute cholecystitis and inflammatory changes of the gallbladder 2. Hyperbilirubinemia 3. Bacteremia with E. coli like a secondary to the acute cholecystitis 4. Hypokalemia PLAN: -Referral to tertiary care center advised for presentation of gallbladder neoplasm of uncertain malignant potential -Recommending at least 2 weeks of IV Zosyn via PICC line -Continue low-fat diet -Replace potassium. Check magnesium level Physician Repair Electric Motor Assembler note has been reviewed by physician. Signing provider agrees with the documented findings, assessment, and plan of care. Objective - Vital Signs Vital signs: Vital Signs Temp 98.0 F 04/16/20 08:00 Pulse 63 04/16/20 08:00 Resp 14 04/16/20 08:00 BP 154/63 04/16/20 08:00 Pulse Ox 93 L 04/16/20 08:00 Intake & Output 04/15/20 04/16/20 04/16/20 18:59 06:59 18:59 Intake Total 900 Output Total 100 120 15 Balance 800 -120 -15 Intake: Oral 900 Output: Drainage 100 120 15 Abdomen 100 120 15 Other: Voiding Method Toilet Toilet # Voids 1 2 - Labs CBC & Chem 7: 04/16/20 11:11 04/16/20 11:11 Labs: Abnormal Lab Results - Last 24 Hours (Table) 04/15/20 04/15/20 04/16/20 Range/Units 16:38 19:51 06:10 WBC (3.8-10.6) k/uL RBC (3.80-5.40) m/uL Hgb (11.4-16.0) gm/dL Hct (34.0-46.0) % Potassium (3.5-5.1) mmol/L Glucose (74-99) mg/dL POC Glucose (mg/dL) 120 H 148 H 106 H (75-99) mg/dL Calcium (8.4-10.2) mg/dL Total Bilirubin (0.2-1.3) mg/dL Alkaline Phosphatase (38-126) U/L Total Protein (6.3-8.2) g/dL Albumin (3.5-5.0) g/dL 04/16/20 04/16/20 04/16/20 Range/Units 11:11 11:11 11:41 WBC 12.9 H (3.8-10.6) k/uL RBC 3.33 L (3.80-5.40) m/uL Hgb 10.2 L (11.4-16.0) gm/dL Hct 32.6 L (34.0-46.0) % Potassium 3.0 L (3.5-5.1) mmol/L Glucose 132 H (74-99) mg/dL POC Glucose (mg/dL) 139 H (75-99) mg/dL Calcium 7.7 L (8.4-10.2) mg/dL Total Bilirubin 1.5 H (0.2-1.3) mg/dL Alkaline Phosphatase 193 H (38-126) U/L Total Protein 5.2 L (6.3-8.2) g/dL Albumin 2.7 L (3.5-5.0) g/dL <Chris,Karen N - Last Filed: 04/17/20 06:29> Subjective Patient seen and evaluated with above. She is tolerating diet. She denies abdominal pain. PINKY continued with bilious output. Intraoperative findings were reviewed with gallbladder neoplasm. Additional workup with ERCP and additional diagnostic studies needed to plan for surgical intervention for suspected gallbladder neoplasm. All questions addressed with patient as transfer is pending. Objective - Vital Signs Vital signs: Vital Signs Temp 98.1 F 04/17/20 02:37 Pulse 65 04/17/20 02:37 Resp 18 04/17/20 02:37 BP 135/75 04/17/20 02:37 Pulse Ox 93 L 04/17/20 02:37 Intake & Output 04/16/20 04/16/20 04/17/20 06:59 18:59 06:59 Output Total 120 105 110 Balance -120 -105 -110 Weight 70.307 kg Output: Drainage 120 105 110 Abdomen 120 105 110 Other: Voiding Method Toilet Toilet Toilet # Voids 2 1 3 - Labs CBC & Chem 7: 04/16/20 11:11 04/16/20 11:11 Labs: Abnormal Lab Results - Last 24 Hours (Table) 04/16/20 04/16/20 04/16/20 Range/Units 11:11 11:11 11:41 WBC 12.9 H (3.8-10.6) k/uL RBC 3.33 L (3.80-5.40) m/uL Hgb 10.2 L (11.4-16.0) gm/dL Hct 32.6 L (34.0-46.0) % Neutrophils # (Manual) 10.00 H (1.3-7.7) k/uL Lymphocytes # (Manual) 0.77 L (1.0-4.8) k/uL Monocytes # (Manual) 1.81 H (0-1.0) k/uL Metamyelocytes # (Man) 0.13 H (0) k/uL Myelocytes # (Manual) 0.13 H (0) k/uL Potassium 3.0 L (3.5-5.1) mmol/L Glucose 132 H (74-99) mg/dL POC Glucose (mg/dL) 139 H (75-99) mg/dL Calcium 7.7 L (8.4-10.2) mg/dL Total Bilirubin 1.5 H (0.2-1.3) mg/dL Alkaline Phosphatase 193 H (38-126) U/L Total Protein 5.2 L (6.3-8.2) g/dL Albumin 2.7 L (3.5-5.0) g/dL 04/16/20 04/16/20 04/17/20 Range/Units 16:31 21:21 06:25 WBC (3.8-10.6) k/uL RBC (3.80-5.40) m/uL Hgb (11.4-16.0) gm/dL Hct (34.0-46.0) % Neutrophils # (Manual) (1.3-7.7) k/uL Lymphocytes # (Manual) (1.0-4.8) k/uL Monocytes # (Manual) (0-1.0) k/uL Metamyelocytes # (Man) (0) k/uL Myelocytes # (Manual) (0) k/uL Potassium (3.5-5.1) mmol/L Glucose (74-99) mg/dL POC Glucose (mg/dL) 122 H 119 H 125 H (75-99) mg/dL Calcium (8.4-10.2) mg/dL Total Bilirubin (0.2-1.3) mg/dL Alkaline Phosphatase (38-126) U/L Total Protein (6.3-8.2) g/dL Albumin (3.5-5.0) g/dL Assessment and Plan (1) Acute cholecystitis Current Visit: Yes Status: Acute Code(s): K81.0 - ACUTE CHOLECYSTITIS SNOMED Code(s): 22981743 (2) Hyperbilirubinemia Current Visit: Yes Status: Acute Code(s): E80.6 - OTHER DISORDERS OF BILIRUBIN METABOLISM SNOMED Code(s): 62403843 (3) Diabetes type 2, uncontrolled Current Visit: Yes Status: Acute Code(s): E11.65 - TYPE 2 DIABETES MELLITUS WITH HYPERGLYCEMIA SNOMED Code(s): 787433958 (4) Lactic acidosis Current Visit: Yes Status: Acute Code(s): E87.2 - ACIDOSIS SNOMED Code(s): 79303053 (5) Abnormal endoscopic retrograde cholangiopancreatography (ERCP) Current Visit: Yes Status: Acute Code(s): R93.2 - ABNORMAL FINDINGS ON DX IMAGING OF LIVER AND BILIARY TRACT SNOMED Code(s): 499972267
--- NOTE | 2020-04-16 12:48 | P.PN ---
Subjective Progress Note Date: 04/16/20 HISTORY OF PRESENT ILLNESS This 75-year-old pleasant female patient of Dr. Amaya. She has underlying history of diabetes mellitus type 2, otherwise healthy. Was seen in emergency room secondary to vague abdominal pain, off and on for the past 2 weeks, this has gotten worse over the past 1 week, accompanied by lightheadedness dizziness, fatigue no appetite, patient denies any fever no chills, pain is in the epigastric region 7 out of 10, nonradiating. Patient denies any urine discoloration or stool discoloration, no diarrhea, pain Once in the emergency room, liver function test was noted to be elevated, she slightly jaundice, bili of 3, AST of 600 ALT of 284, alkaline force of 380, ultrasound of the gallbladder showed distended large gallbladder with the previous filled gallbladder, common bile duct is 0.8 cm, common bile duct wall of 0.3 cm, consider cholecystitis, underlying mass any plasm the gallbladder is not excluded CAT scan of the abdomen and pelvis with contrast shows the gallbladder is distended, pancreas is atrophic, common bile duct somewhat promin ent, maybe small density at the neck of the gallbladder, some inflammatory change adjacent to the fundus of the gallbladder, correlate for acute cholecystitis. Patient was admitted, with cholecystitis with choledocholithiasis, acute jaundice, blood cultures are positive for gram- negative bacilli, patient's on IV Zosyn. Consult with Dr. Bunn, and Dr. Perez. 04/09: Patient is currently nothing by mouth but has been tolerating diet. No nausea or vomiting. No fever or chills. Patient currently does not have any abdominal pain. She has been seen by general surgery with plan for cholecyst ectomy as she improves. She has also been seen by GI and she is scheduled for ERCP this morning. She is currently on IV antibiotics in the form of Zosyn. Patient has had lab work improvement since yesterday with white count of 13, hemoglobin 9.2. Total bilirubin 1.6, AST 204, ALT 194, alkaline phosphatase 238. Hemoglobin A1c is 7.5. 04/10: Patient evaluated morning rounds, she reports she is feeling well she denies any nausea, vomiting, or diarrhea. She is still nothing by mouth. ERCP was attempted yesterday, multiple attempts to cannulate the papilla were unsuccessful with suspicion for stenotic papilla. ERCP was then aborted. Patient went for MRCP today. Procedure was tolerated well. Results from the ERCP are pending. 04/11: Patient noted this morning, reports she is feeling well she is tolerating a clear liquid diet. MRCP done yesterday without evidence common duct or proper hepatic duct stone. There was a small site of T2 hyperintensity within the pancreas with IPMN within the differential. Gastroenterology note appreciated recommends repeat imaging in 6 months. Plans for surgery tomorrow. vital signs are stable she's afebrile 97.6, heart rate 54, respiratory 16, blood pressure 149/57. Laboratory values are trending down total bilirubin 1.0 AST 48, ALT 108, alkaline phosphate 233. 04/12: Patient is found sitting in a chair after her shower this morning. She states she slept well last night. She denies having any abdominal pain. She is scheduled for cholecystectomy today. She has been afebrile, heart rate 51, blood pressure 152/78, pulse ox 92% on room air. Repeat blood work reveals W BC 10.9, hemoglobin 9.7, platelet count 220. Chloride 112, CO2 18, blood sugar 156, creatinine 2.74. Liver function tests improving with total bilirubin 1, AST 51, ALT 91, alkaline phosphatase 236. Anticipate possible discharge later today. 04/13: Patient went to [facility] for cholecystectomy but gallbladder was found to be encased around surrounding tissue including colon and distortion of the duodenum and common bile duct structures prohibiting resection. Patient underwent lysis of adhesions, excisional biopsy gallbladder mass, placement of drain in the right upper quadrant. There was concern for neoplastic process of the gallbladder. Cholecystectomy was deferred and if patient found to have gallbladder neoplasm she will require tertiary care referral. Patient is seen this morning on the observation unit. She denies any new complaints. No concern for abdominal pain. No nausea or vomiting. She is currently on a low- fat diet. CA 199 and CEA have been ordered. CBC reveals W BC 13.4, hemoglobin 9.4, platelet count 230. Sodium 130, potassium 3.2, chloride 114, CO2 22, BUN 11 creatinine 0.62. Blood sugar running between 106 169. Total bilirubin 1.0, AST 39, ALT 63, alk phosphatase 164. Incentive spirometry added. 04/14 her COVID test came back negative, patient will be transferred to [facility] for possible surgery and management awaiting for bed from [facility]. 04/15: Still waiting to be transferred to [facility] she developed to have midsternal chest pain this morning her CK troponin came back negative for along with EKG doesn't show any change chest x-ray was performed and it showed slight infiltrate more like atelectasis or scar tissue on the right lower lobe close to the area which she had her surgery on no sign of active infection in the meanwhile she still on treatment for ascending cholangitis with Zosyn which will have better coverage for the right side pneumonitis. 04/16: Patient remains in the observation unit waiting for a [facility] bed and also waiting for transfer to [facility]. Requested the sample case portermanager language [facility] in [place] and they are currently not taking any transfer patients. Biopsy report remains pending. Patient has been afebrile, heart rate 63, blood pressure 154/63, pulse ox 93% on room air. Repeat blood work reveals W BC 12.9, hemoglobin 10.2, potassium 3 and otherwise electrolytes and renal function normal. Blood sugar 132. AST 25, ALT 28, alkaline phosphatase 193, total bilirubin 1.5. Potassium will be replaced orally. IV fluids discontinued and placed on saline lock. REVIEW OF SYSTEMS Constitutional: No fever, no chills, no night sweats. Denies fatigue. EENT: No headache. No blurred vision or double vision, no loss of vision. Lungs: No shortness of breath, cough, no sputum production. No wheezing. Cardiovascular: No chest pain, no lower extremity edema. No palpitations. No paroxysmal nocturnal dyspnea. No orthopnea. No lightheadedness or dizziness. No syncopal episodes. Abdominal: No abdominal pain at time of evaluation. No nausea, vomiting. No diarrhea. No constipation. No bloody or tarry stools. No loss of appetite. Genitourinary: No dysuria, increased frequency, urgency. No urinary retention. Musculoskeletal: No myalgias. No muscle weakness, no gait dysfunction, no frequent falls. No back pain. No neck pain. Integumentary: No wounds, no lesions. No rash or pruritus. No unusual bruising. No change in hair or nails. Neurologic: No aphasia. No facial droop. Mild confusion. No head injury. No headache. Psychiatric: No depression. No anxiety. No mood swings. Endocrine: Reports abnormal blood sugars. No weight change. No excessive sweating or thirst. No cold intolerance. PHYSICAL EXAMINATION Gen: This is a 75-year-old female. Patient is resting in bed and appears to be comfortable and in no acute distress. HEENT: Head is atraumatic, normocephalic. Pupils equal, round. Sclerae is anicteric. NECK: Supple. No JVD. No lymphadenopathy. No thyromegaly. LUNGS: Clear to auscultation. No wheezes or rhonchi. No intercostal retractions. HEART: Regular rate and rhythm. No murmur. ABDOMEN: Soft. Bowel sounds are present. No masses. No tenderness. Surgical areas show no signs of infection. PINKY drain in place. EXTREMITIES: No pedal edema. No calf tenderness. NEUROLOGICAL: Patient is awake, alert and oriented x3. Cranial nerves 2 through 12 are grossly intact. ASSESSMENT AND PLAN 1. Acute cholecystitis with choledocholithiasis, and cholestatic jaundice as well as elevation of transaminase, rule out gallbladder neoplasm, status post lysis of adhesions, excisional biopsy gallbladder mass and placement of drain. Patient is status post lysis of adhesions, excisional biopsy of gallbladder mass and placement of drain. She is currently tolerating a low-fat diet. 2. Diabetes mellitus type 2. Hold glimepiride. Continue NovoLog scale. Hem oglobin A1c 7.5. Patient has been hypoglycemic. 3. Acute bacteremia and sepsis secondary to ascending cholecystitis. Continue Zosyn. 4. Sepsis with gram-negative bacteremia. Continue to monitor lab work closely and await blood culture finalization. 5. GI prophylaxis. Protonix. 6. DVT prophylaxis. Heparin subcu. DISCHARGE PLAN Transfer to [facility] once bed is available. Impression and plan of care have been directed as dictated by the signing physician. Keyla Montiel nurse practitioner acting as scribe for signing physician. Objective - Vital Signs Vital signs: Vital Signs Temp 98.0 F 04/16/20 08:00 Pulse 63 04/16/20 08:00 Resp 14 04/16/20 08:00 BP 154/63 04/16/20 08:00 Pulse Ox 93 L 04/16/20 08:00 Intake & Output 04/15/20 04/16/20 04/16/20 18:59 06:59 18:59 Intake Total 900 Output Total 100 120 15 Balance 800 -120 -15 Intake: Oral 900 Output: Drainage 100 120 15 Abdomen 100 120 15 Other: Voiding Method Toilet Toilet # Voids 1 2 - Labs CBC & Chem 7: 04/16/20 11:11 04/16/20 11:11 Labs: Abnormal Lab Results - Last 24 Hours (Table) 04/15/20 04/15/20 04/16/20 Range/Units 16:38 19:51 06:10 POC Glucose (mg/dL) 120 H 148 H 106 H (75-99) mg/dL
[2020-04-16 14:20] LABS: Anisocytosis (M) Present; Band Neutrophils % 1 %; Eosinophils # (M) 0.13 k/uL (0-0.7); Lymphocytes # (M) 0.77 k/uL (1.0-4.8); Metamyelocytes # (M) 0.13 k/uL (0); Metamyelocytes % 1 %; Monocytes # (M) 1.81 k/uL (0-1.0); Myelocytes # (M) 0.13 k/uL (0); Myelocytes % 1 %; Neutrophils % (M) 77 %; Nucleated Red Blood Cells 0 /100 WBC (0-0); Poikilocytosis (M) Present; Polychromasia Present; Total Cells Counted 200
[2020-04-16] MEDS ORDERED: POTASSIUM CHLORIDE ER 20 MEQ TAB.ER PO ONE (14:30)
[2020-04-16 14:48] VITALS: BMI 27.4
[2020-04-16 16:32] LABS: Glucose,Whole Blood 122 mg/dL (75-99)
[2020-04-16] MEDS: ACETAMINOPHEN TAB 325 MG TAB PO PRN (18:54)
[2020-04-16 21:23] LABS: Glucose,Whole Blood 119 mg/dL (75-99)
[2020-04-17] MEDS: PIPERACILLIN-TAZOBACTAM 3.375 GM in SODIUM CHLORIDE 0.9% 100 ML IVPB SCH ×3 (02:10→17:16)
[2020-04-17 06:26] LABS: Glucose,Whole Blood 125 mg/dL (75-99)
[2020-04-17] MEDS: PANTOPRAZOLE 40 MG TABLET PO SCH (07:35)
[2020-04-17] MEDS: HEPARIN SODIUM,PORCINE 5,000 UNIT/ML 1 ML VIAL SQ SCH ×2 (07:35→19:39)
[2020-04-17] MEDS: INSULIN ASPART (NovoLOG) 100 UNIT/ML VIAL SQ SCH ×4 (07:36→20:34)
[2020-04-17] MEDS: ACETAMINOPHEN TAB 325 MG TAB PO PRN ×2 (07:39→13:57)
[2020-04-17 10:30] LABS: ALT 25 U/L (4-34); AST 23 U/L (14-36); African American GFR (CKD) >90 (>60 ml/min/1.73 sqM); Albumin 2.7 g/dL (3.5-5.0); Alkaline Phosphatase 200 U/L (38-126); Anion Gap 6 mmol/L; Blood Urea Nitrogen 9 mg/dL (7-17); Calcium 7.9 mg/dL (8.4-10.2); Carbon Dioxide 25 mmol/L (22-30); Chloride 105 mmol/L (98-107); Glucose 137 mg/dL (74-99); Magnesium 1.8 mg/dL (1.6-2.3); Non-African American GFR(CKD) 88 (>60 ml/min/1.73 sqM); Potassium 3.8 mmol/L (3.5-5.1); Sodium 136 mmol/L (137-145); Total Bilirubin 1.2 mg/dL (0.2-1.3); Total Protein 5.2 g/dL (6.3-8.2)
[2020-04-17 10:40] LABS: HCT 31.6 % (34.0-46.0); HGB 10.1 gm/dL (11.4-16.0); Hypochromasia Slight; MCH 31.2 pg (25.0-35.0); MCHC 31.9 g/dL (31.0-37.0); MCV 97.7 fL (80.0-100.0); Mean Platelet Volume 8.9; Platelet Count 223 k/uL (150-450); RBC 3.24 m/uL (3.80-5.40); RDW 15.5 % (11.5-15.5); WBC 13.8 k/uL (3.8-10.6)
--- NOTE | 2020-04-17 11:22 | P.PN ---
<Lynette Limon - Last Filed: 04/17/20 13:35> Subjective Progress Note Date: 04/17/20 CHIEF COMPLAINT: Abdominal pain HISTORY OF PRESENT ILLNESS: The patient is a 75-year-old female admitted with abnormal liver enzymes and incidental findings of cholecystitis. Patient is status post robotic lysis of adhesions, excisional biopsy of gallbladder mass and placement of drain to the right upper quadrant. She is on a low-fat diet. Denies any abdominal pain. She did have some nausea this morning. No vomiting. She reports having bowel movements. Patient has PICC line in place for antibiotics. Awaiting bed availability at [facility]. Afebrile. CA-19-9 12.4 WBC 13.8 hemoglobin 10.1 potassium 3.8 magnesium 1.8 total bili 1.2 Coronavirus negative, CEA 0.6 PHYSICAL EXAM: VITAL SIGNS: Reviewed GENERAL: Well-developed in no acute distress. HEENT: No sclera icterus. Extraocular movements grossly intact. Moist buccal mucosa. Head is atraumatic, normocephalic. Hears conversational speech. No nasal drainage. NECK: Supple without lymphadenopathy. CHEST: Non-labored respirations and equal bilateral excursions. CARDIOVASCULAR: Regular rate with regular rhythm. Palpable 2+ radial pulses. ABDOMEN: Soft. Nondistended. PINKY drain has bile drainage MUSCULOSKELETAL: No clubbing or cyanosis. NEUROLOGIC: No focal or lateralizing signs. Cranial nerves II through XII grossly intact. PSYCH: Appropriate affect. Pleasantly confused SKIN: Well perfused. Good skin turgor. 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 Patient is status post robotic lysis of adhesions, excisional biopsy of gallbladder mass and placement of drain to the right upper quadrant. 2. Leukocytosis with acute cholecystitis and inflammatory changes of the gallbladder 2. Hyperbilirubinemia 3. Bacteremia with E. coli like a secondary to the acute cholecystitis 4. Hypokalemia resolved 5. Hypomagnesemia PLAN: -Referral to tertiary care center advised for presentation of gallbladder neoplasm of uncertain malignant potential -Recommending at least 2 weeks of IV Zosyn via PICC line -Continue low-fat diet -Replace magnesium -Pathology results reviewed. Cytology showed no malignant cells. Pathology was negative for any malignancy. Did reveal nodular fat necrosis and fibrosis with chronic inflammation -Patient can be discharged to [facility] for antibiotics. Recommend that she does follow up with tertiary care center for further evaluation of gallbladder neoplasm of uncertain malignant potential Physician Cook Box Filler note has been reviewed by physician. Signing provider agrees with the documented findings, assessment, and plan of care. Objective - Vital Signs Vital signs: Vital Signs Temp 98.3 F 04/17/20 07:51 Pulse 80 04/17/20 07:51 Resp 16 04/17/20 07:51 BP 151/69 04/17/20 07:51 Pulse Ox 94 L 04/17/20 07:51 Intake & Output 04/16/20 04/17/20 04/17/20 18:59 06:59 18:59 Output Total 105 110 Balance -105 -110 Weight 70.307 kg Output: Drainage 105 110 Abdomen 105 110 Other: Voiding Method Toilet Toilet # Voids 1 3 - Labs CBC & Chem 7: 04/17/20 09:25 04/17/20 09:25 Labs: Abnormal Lab Results - Last 24 Hours (Table) 04/16/20 04/16/20 04/16/20 Range/Units 11:11 11:11 11:41 WBC 12.9 H (3.8-10.6) k/uL RBC 3.33 L (3.80-5.40) m/uL Hgb 10.2 L (11.4-16.0) gm/dL Hct 32.6 L (34.0-46.0) % Neutrophils # (Manual) 10.00 H (1.3-7.7) k/uL Lymphocytes # (Manual) 0.77 L (1.0-4.8) k/uL Monocytes # (Manual) 1.81 H (0-1.0) k/uL Metamyelocytes # (Man) 0.13 H (0) k/uL Myelocytes # (Manual) 0.13 H (0) k/uL Sodium (137-145) mmol/L Potassium 3.0 L (3.5-5.1) mmol/L Glucose 132 H (74-99) mg/dL POC Glucose (mg/dL) 139 H (75-99) mg/dL Calcium 7.7 L (8.4-10.2) mg/dL Total Bilirubin 1.5 H (0.2-1.3) mg/dL Alkaline Phosphatase 193 H (38-126) U/L Total Protein 5.2 L (6.3-8.2) g/dL Albumin 2.7 L (3.5-5.0) g/dL 04/16/20 04/16/20 04/17/20 Range/Units 16:31 21:21 06:25 WBC (3.8-10.6) k/uL RBC (3.80-5.40) m/uL Hgb (11.4-16.0) gm/dL Hct (34.0-46.0) % Neutrophils # (Manual) (1.3-7.7) k/uL Lymphocytes # (Manual) (1.0-4.8) k/uL Monocytes # (Manual) (0-1.0) k/uL Metamyelocytes # (Man) (0) k/uL Myelocytes # (Manual) (0) k/uL Sodium (137-145) mmol/L Potassium (3.5-5.1) mmol/L Glucose (74-99) mg/dL POC Glucose (mg/dL) 122 H 119 H 125 H (75-99) mg/dL Calcium (8.4-10.2) mg/dL Total Bilirubin (0.2-1.3) mg/dL Alkaline Phosphatase (38-126) U/L Total Protein (6.3-8.2) g/dL Albumin (3.5-5.0) g/dL 04/17/20 04/17/20 Range/Units 09:25 09:25 WBC 13.8 H (3.8-10.6) k/uL RBC 3.24 L (3.80-5.40) m/uL Hgb 10.1 L (11.4-16.0) gm/dL Hct 31.6 L (34.0-46.0) % Neutrophils # (Manual) (1.3-7.7) k/uL Lymphocytes # (Manual) (1.0-4.8) k/uL Monocytes # (Manual) (0-1.0) k/uL Metamyelocytes # (Man) (0) k/uL Myelocytes # (Manual) (0) k/uL Sodium 136 L (137-145) mmol/L Potassium (3.5-5.1) mmol/L Glucose 137 H (74-99) mg/dL POC Glucose (mg/dL) (75-99) mg/dL Calcium 7.9 L (8.4-10.2) mg/dL Total Bilirubin (0.2-1.3) mg/dL Alkaline Phosphatase 200 H (38-126) U/L Total Protein 5.2 L (6.3-8.2) g/dL Albumin 2.7 L (3.5-5.0) g/dL <ChrisRachael N - Last Filed: 04/19/20 06:19> Objective - Vital Signs Vital signs: Vital Signs Temp 98.3 F 04/18/20 14:53 Pulse 73 04/18/20 14:53 Resp 14 04/18/20 14:55 BP 145/69 04/18/20 14:53 Pulse Ox 95 04/18/20 14:55 Intake & Output 04/18/20 04/18/20 04/19/20 06:59 18:59 06:59 Intake Total 460 Output Total 50 Balance 410 Intake: Intake, IV Titration 100 Amount Piperacillin-Tazobactam 3 100 .375 gm In Sodium Chloride 0.9% 100 ml @ 25 mls/hr IVPB Q8H [facility] Rx#: [id number] Oral 360 Output: Drainage 50 Abdomen 50 Other: Voiding Method Toilet # Voids 2 1 - Labs CBC & Chem 7: 04/17/20 09:25 04/17/20 09:25 Labs: Abnormal Lab Results - Last 24 Hours (Table) 04/18/20 04/18/20 Range/Units 11:53 16:59 POC Glucose (mg/dL) 126 H 174 H (75-99) mg/dL Assessment and Plan (1) Acute cholecystitis Status: Acute Code(s): K81.0 - ACUTE CHOLECYSTITIS SNOMED Code(s): 28402285 (2) Hyperbilirubinemia Status: Acute Code(s): E80.6 - OTHER DISORDERS OF BILIRUBIN METABOLISM SNOMED Code(s): 50690993 (3) Diabetes type 2, uncontrolled Status: Acute Code(s): E11.65 - TYPE 2 DIABETES MELLITUS WITH HYPERGLYCEMIA SNOMED Code(s): 675596315 (4) Lactic acidosis Status: Acute Code(s): E87.2 - ACIDOSIS SNOMED Code(s): 16329387 (5) Abnormal endoscopic retrograde cholangiopancreatography (ERCP) Status: Acute Code(s): R93.2 - ABNORMAL FINDINGS ON DX IMAGING OF LIVER AND BILIARY TRACT SNOMED Code(s): 741460573
[2020-04-17 11:32] LABS: Band Neutrophils % 1 %; Eosinophils # (M) 0.41 k/uL (0-0.7); Lymphocytes # (M) 2.35 k/uL (1.0-4.8); Metamyelocytes # (M) 0.14 k/uL (0); Metamyelocytes % 1 %; Monocytes # (M) 0.55 k/uL (0-1.0); Myelocytes # (M) 0.28 k/uL (0); Myelocytes % 2 %; Neutrophils % (M) 73 %; Nucleated Red Blood Cells 0 /100 WBC (0-0); Total Cells Counted 200
--- NOTE | 2020-04-17 11:46 | P.PN ---
Subjective Progress Note Date: 04/17/20 HISTORY OF PRESENT ILLNESS This 75-year-old pleasant female patient of Dr. Amaya. She has underlying history of diabetes mellitus type 2, otherwise healthy. Was seen in emergency room secondary to vague abdominal pain, off and on for the past 2 weeks, this has gotten worse over the past 1 week, accompanied by lightheadedness dizziness, fatigue no appetite, patient denies any fever no chills, pain is in the epigastric region 7 out of 10, nonradiating. Patient denies any urine discoloration or stool discoloration, no diarrhea, pain Once in the emergency room, liver function test was noted to be elevated, she slightly jaundice, bili of 3, AST of 600 ALT of 284, alkaline force of 380, ultrasound of the gallbladder showed distended large gallbladder with the previous filled gallbladder, common bile duct is 0.8 cm, common bile duct wall of 0.3 cm, consider cholecystitis, underlying mass any plasm the gallbladder is not excluded CAT scan of the abdomen and pelvis with contrast shows the gallbladder is distended, pancreas is atrophic, common bile duct somewhat promin ent, maybe small density at the neck of the gallbladder, some inflammatory change adjacent to the fundus of the gallbladder, correlate for acute cholecystitis. Patient was admitted, with cholecystitis with choledocholithiasis, acute jaundice, blood cultures are positive for gram- negative bacilli, patient's on IV Zosyn. Consult with Dr. Bunn, and Dr. Perez. 04/09: Patient is currently nothing by mouth but has been tolerating diet. No nausea or vomiting. No fever or chills. Patient currently does not have any abdominal pain. She has been seen by general surgery with plan for cholecyst ectomy as she improves. She has also been seen by GI and she is scheduled for ERCP this morning. She is currently on IV antibiotics in the form of Zosyn. Patient has had lab work improvement since yesterday with white count of 13, hemoglobin 9.2. Total bilirubin 1.6, AST 204, ALT 194, alkaline phosphatase 238. Hemoglobin A1c is 7.5. 04/10: Patient evaluated morning rounds, she reports she is feeling well she denies any nausea, vomiting, or diarrhea. She is still nothing by mouth. ERCP was attempted yesterday, multiple attempts to cannulate the papilla were unsuccessful with suspicion for stenotic papilla. ERCP was then aborted. Patient went for MRCP today. Procedure was tolerated well. Results from the ERCP are pending. 04/11: Patient noted this morning, reports she is feeling well she is tolerating a clear liquid diet. MRCP done yesterday without evidence common duct or proper hepatic duct stone. There was a small site of T2 hyperintensity within the pancreas with IPMN within the differential. Gastroenterology note appreciated recommends repeat imaging in 6 months. Plans for surgery tomorrow. vital signs are stable she's afebrile 97.6, heart rate 54, respiratory 16, blood pressure 149/57. Laboratory values are trending down total bilirubin 1.0 AST 48, ALT 108, alkaline phosphate 233. 04/12: Patient is found sitting in a chair after her shower this morning. She states she slept well last night. She denies having any abdominal pain. She is scheduled for cholecystectomy today. She has been afebrile, heart rate 51, blood pressure 152/78, pulse ox 92% on room air. Repeat blood work reveals W BC 10.9, hemoglobin 9.7, platelet count 220. Chloride 112, CO2 18, blood sugar 156, creatinine 2.74. Liver function tests improving with total bilirubin 1, AST 51, ALT 91, alkaline phosphatase 236. Anticipate possible discharge later today. 04/13: Patient went to [facility] for cholecystectomy but gallbladder was found to be encased around surrounding tissue including colon and distortion of the duodenum and common bile duct structures prohibiting resection. Patient underwent lysis of adhesions, excisional biopsy gallbladder mass, placement of drain in the right upper quadrant. There was concern for neoplastic process of the gallbladder. Cholecystectomy was deferred and if patient found to have gallbladder neoplasm she will require tertiary care referral. Patient is seen this morning on the observation unit. She denies any new complaints. No concern for abdominal pain. No nausea or vomiting. She is currently on a low- fat diet. CA 199 and CEA have been ordered. CBC reveals W BC 13.4, hemoglobin 9.4, platelet count 230. Sodium 130, potassium 3.2, chloride 114, CO2 22, BUN 11 creatinine 0.62. Blood sugar running between 106 169. Total bilirubin 1.0, AST 39, ALT 63, alk phosphatase 164. Incentive spirometry added. 04/14 her COVID test came back negative, patient will be transferred to [facility] for possible surgery and management awaiting for bed from [facility]. 04/15: Still waiting to be transferred to [facility] she developed to have midsternal chest pain this morning her CK troponin came back negative for along with EKG doesn't show any change chest x-ray was performed and it showed slight infiltrate more like atelectasis or scar tissue on the right lower lobe close to the area which she had her surgery on no sign of active infection in the meanwhile she still on treatment for ascending cholangitis with Zosyn which will have better coverage for the right side pneumonitis. 04/16: Patient remains in the observation unit waiting for a [facility] bed and also waiting for transfer to [facility]. Requested the telehealth case managercommercial intelligence manager [facility] in [place] and they are currently not taking any transfer patients. Biopsy report remains pending. Patient has been afebrile, heart rate 63, blood pressure 154/63, pulse ox 93% on room air. Repeat blood work reveals W BC 12.9, hemoglobin 10.2, potassium 3 and otherwise electrolytes and renal function normal. Blood sugar 132. AST 25, ALT 28, alkaline phosphatase 193, total bilirubin 1.5. Potassium will be replaced orally. IV fluids discontinued and placed on saline lock. 04/17: There have been no beds available at [facility] and do not it anticipate that one will be available soon. Discussed plan with the patient that she could be discharged with 2 weeks of IV antibiotics and set up an outpatient follow-up with [facility] if okay with general surgery. Patient is agreeable and asked that her daughter be contacted in [place]. Dr. Amaya spoke with Jesús over the phone. Social work and case management are following for discharge planning. Patient has a PICC line in place. She has been afebrile, heart rate 80, blood pressure 151/69, pulse ox 94% on room air. Repeat blood work reveals W BC 13.8, Hemoccult and 10.1, platelet count 223. Sodium 136 other electrolytes normal, creatinine 0.64. Blood sugars running between 119 137. Alkaline phosphatase 200. REVIEW OF SYSTEMS Constitutional: No fever, no chills, no night sweats. Denies fatigue. EENT: No headache. No blurred vision or double vision, no loss of vision. Lungs: No shortness of breath, cough, no sputum production. No wheezing. Cardiovascular: No chest pain, no lower extremity edema. No palpitations. No paroxysmal nocturnal dyspnea. No orthopnea. No lightheadedness or dizziness. No syncopal episodes. Abdominal: No abdominal pain at time of evaluation. No nausea, vomiting. No diarrhea. No constipation. No bloody or tarry stools. No loss of appetite. Genitourinary: No dysuria, increased frequency, urgency. No urinary retention. Musculoskeletal: No myalgias. No muscle weakness, no gait dysfunction, no frequent falls. No back pain. No neck pain. Integumentary: No wounds, no lesions. No rash or pruritus. No unusual bruising. No change in hair or nails. PINKY drain in place Neurologic: No aphasia. No facial droop. Mild confusion. No head injury. No headache. Psychiatric: No depression. No anxiety. No mood swings. Endocrine: Reports abnormal blood sugars. No weight change. No excessive sweating or thirst. No cold intolerance. PHYSICAL EXAMINATION Gen: This is a 75-year-old female. Patient is resting in bed and appears to be comfortable and in no acute distress. HEENT: Head is atraumatic, normocephalic. Pupils equal, round. Sclerae is anicteric. NECK: Supple. No JVD. No lymphadenopathy. No thyromegaly. LUNGS: Clear to auscultation. No wheezes or rhonchi. No intercostal retractions. HEART: Regular rate and rhythm. No murmur. ABDOMEN: Soft. Bowel sounds are present. No masses. No tenderness. Surgical areas show no signs of infection. PINKY drain in place. EXTREMITIES: No pedal edema. No calf tenderness. NEUROLOGICAL: Patient is awake, alert and oriented x3. Cranial nerves 2 through 12 are grossly intact. ASSESSMENT AND PLAN 1. Acute cholecystitis with choledocholithiasis, and cholestatic jaundice as well as elevation of transaminase, rule out gallbladder neoplasm, status post lysis of adhesions, excisional biopsy gallbladder mass and placement of drain. Patient is status post lysis of adhesions, excisional biopsy of gallbladder mass and placement of drain. She is currently tolerating a low-fat diet. 2. Diabetes mellitus type 2. Hold glimepiride. Continue NovoLog scale. Hemoglobin A1c 7.5. Patient has been hypoglycemic. 3. Acute bacteremia and sepsis secondary to ascending cholecystitis. Continue Zosyn. 4. Sepsis with gram-negative bacteremia. Continue to monitor lab work closely and await blood culture finalization. 5. GI prophylaxis. Protonix. 6. DVT prophylaxis. Heparin subcu. DISCHARGE PLAN Discharged to subacute rehab for IV antibiotics, wound care and drain management. Impression and plan of care have been directed as dictated by the signing physician. Keyla Montiel nurse practitioner acting as scribe for signing physician. Objective - Vital Signs Vital signs: Vital Signs Temp 98.3 F 04/17/20 07:51 Pulse 80 04/17/20 07:51 Resp 16 04/17/20 07:51 BP 151/69 04/17/20 07:51 Pulse Ox 94 L 04/17/20 07:51 Intake & Output 04/16/20 04/17/20 04/17/20 18:59 06:59 18:59 Output Total 105 110 Balance -105 -110 Weight 70.307 kg Output: Drainage 105 110 Abdomen 105 110 Other: Voiding Method Toilet Toilet # Voids 1 3 - Labs CBC & Chem 7: 04/17/20 09:25 04/17/20 09:25 Labs: Abnormal Lab Results - Last 24 Hours (Table) 04/16/20 04/16/20 04/16/20 Range/Units 11:11 11:11 11:41 WBC 12.9 H (3.8-10.6) k/uL RBC 3.33 L (3.80-5.40) m/uL Hgb 10.2 L (11.4-16.0) gm/dL Hct 32.6 L (34.0-46.0) % Neutrophils # (Manual) 10.00 H (1.3-7.7) k/uL Lymphocytes # (Manual) 0.77 L (1.0-4.8) k/uL Monocytes # (Manual) 1.81 H (0-1.0) k/uL Metamyelocytes # (Man) 0.13 H (0) k/uL Myelocytes # (Manual) 0.13 H (0) k/uL Potassium 3.0 L (3.5-5.1) mmol/L Glucose 132 H (74-99) mg/dL POC Glucose (mg/dL) 139 H (75-99) mg/dL Calcium 7.7 L (8.4-10.2) mg/dL Total Bilirubin 1.5 H (0.2-1.3) mg/dL Alkaline Phosphatase 193 H (38-126) U/L Total Protein 5.2 L (6.3-8.2) g/dL Albumin 2.7 L (3.5-5.0) g/dL 04/16/20 04/16/20 04/17/20 Range/Units 16:31 21:21 06:25 WBC (3.8-10.6) k/uL RBC (3.80-5.40) m/uL Hgb (11.4-16.0) gm/dL Hct (34.0-46.0) % Neutrophils # (Manual) (1.3-7.7) k/uL Lymphocytes # (Manual) (1.0-4.8) k/uL Monocytes # (Manual) (0-1.0) k/uL Metamyelocytes # (Man) (0) k/uL Myelocytes # (Manual) (0) k/uL Potassium (3.5-5.1) mmol/L Glucose (74-99) mg/dL POC Glucose (mg/dL) 122 H 119 H 125 H (75-99) mg/dL Calcium (8.4-10.2) mg/dL Total Bilirubin (0.2-1.3) mg/dL Alkaline Phosphatase (38-126) U/L Total Protein (6.3-8.2) g/dL Albumin (3.5-5.0) g/dL
--- NOTE | 2020-04-17 11:47 | P.DS ---
Providers Date of admission: 04/09/20 08:39 Expected date of discharge: 04/17/20 Attending physician: Anamaria Mcmahon Consults: 04/07/20 19:33 Consult Physician Urgent Consulting Provider: Rachael Perez Consult Reason/Comments: Cholecystitis, abdominal pain, lactic acidosis, hyperbilirubinemia Do you want consulting provider notified?: Already Contacted Primary care physician: [facility] Course: HISTORY OF PRESENT ILLNESS This 75-year-old pleasant female patient of Dr. Amaya. She has underlying history of diabetes mellitus type 2, otherwise healthy. Was seen in emergency room secondary to vague abdominal pain, off and on for the past 2 weeks, this has gotten worse over the past 1 week, accompanied by lightheadedness dizziness, fatigue no appetite, patient denies any fever no chills, pain is in the epigastric region 7 out of 10, nonradiating. Patient denies any urine discoloration or stool discoloration, no diarrhea, pain Once in the emergency room, liver function test was noted to be elevated, she slightly jaundice, bili of 3, AST of 600 ALT of 284, alkaline force of 380, ultrasound of the gallbladder showed distended large gallbladder with the previous filled gallbladder, common bile duct is 0.8 cm, common bile duct wall of 0.3 cm, consider cholecystitis, underlying mass any plasm the gallbladder is not excluded CAT scan of the abdomen and pelvis with contrast shows the gallbladder is distended, pancreas is atrophic, common bile duct somewhat prominent, maybe small density at the neck of the gallbladder, some inflammatory change adjacent to the fundus of the gallbladder, correlate for acute cholecystitis. Patient was admitted, with cholecystitis with choledocholithiasis, acute jaundice, blood cultures are positive for gram- negative bacilli, patient's on IV Zosyn. Consult with Dr. Bunn, and Dr. Perez. 04/09: Patient is currently nothing by mouth but has been tolerating diet. No nausea or vomiting. No fever or chills. Patient currently does not have any abdominal pain. She has been seen by general surgery with plan for cholecystectomy as she improves. She has also been seen by GI and she is scheduled for ERCP this morning. She is currently on IV antibiotics in the form of Zosyn. Patient has had lab work improvement since yesterday with white count of 13, hemoglobin 9.2. Total bilirubin 1.6, AST 204, ALT 194, alkaline phosphatase 238. Hemoglobin A1c is 7.5. 04/10: Patient evaluated morning rounds, she reports she is feeling well she denies any nausea, vomiting, or diarrhea. She is still nothing by mouth. ERCP was attempted yesterday, multiple attempts to cannulate the papilla were unsuccessful with suspicion for stenotic papilla. ERCP was then aborted. Patient went for MRCP today. Procedure was tolerated well. Results from the ERCP are pending. 04/11: Patient noted this morning, reports she is feeling well she is tolerating a clear liquid diet. MRCP done yesterday without evidence common duct or proper hepatic duct stone. There was a small site of T2 hyperintensity within the pancreas with IPMN within the differential. Gastroenterology note appreciated recommends repeat imaging in 6 months. Plans for surgery tomorrow. vital signs are stable she's afebrile 97.6, heart rate 54, respiratory 16, blood pressure 149/57. Laboratory values are trending down total bilirubin 1.0 AST 48, ALT 108, alkaline phosphate 233. 04/12: Patient is found sitting in a chair after her shower this morning. She states she slept well last night. She denies having any abdominal pain. She is scheduled for cholecystectomy today. She has been afebrile, heart rate 51, blood pressure 152/78, pulse ox 92% on room air. Repeat blood work reveals W BC 10.9, hemoglobin 9.7, platelet count 220. Chloride 112, CO2 18, blood sugar 156, creatinine 2.74. Liver function tests improving with total bilirubin 1, AST 51, ALT 91, alkaline phosphatase 236. Anticipate possible discharge later today. 04/13: Patient went to [facility] for cholecystectomy but gallbladder was found to be encased around surrounding tissue including colon and distortion of the duodenum and common bile duct structures prohibiting resection. Patient underwent lysis of adhesions, excisional biopsy gallbladder mass, placement of drain in the right upper quadrant. There was concern for neoplastic process of the gallbladder. Cholecystectomy was deferred and if patient found to have gallbladder neoplasm she will require tertiary care referral. Patient is seen this morning on the observation unit. She denies any new complaints. No concern for abdominal pain. No nausea or vomiting. She is currently on a low- fat diet. CA 199 and CEA have been ordered. CBC reveals W BC 13.4, hemoglobin 9.4, platelet count 230. Sodium 130, potassium 3.2, chloride 114, CO2 22, BUN 11 creatinine 0.62. Blood sugar running between 106 169. Total bilirubin 1.0, AST 39, ALT 63, alk phosphatase 164. Incentive spirometry added. 04/14 her COVID test came back negative, patient will be transferred to [facility] for possible surgery and management awaiting for bed from [facility]. 04/15: Still waiting to be transferred to [facility] she developed to have midsternal chest pain this morning her CK troponin came back negative for along with EKG doesn't show any change chest x-ray was performed and it showed slight infiltrate more like atelectasis or scar tissue on the right lower lobe close to the area which she had her surgery on no sign of active infection in the meanwhile she still on treatment for ascending cholangitis with Zosyn which will have better coverage for the right side pneumonitis. 04/16: Patient remains in the observation unit waiting for a [facility] bed and also waiting for transfer to [facility]. Requested the shelter case managerbooking manager [place] in [place] and they are currently not taking any transfer patients. Biopsy report remains pending. Patient has been afebrile, heart rate 63, blood pressure 154/63, pulse ox 93% on room air. Repeat blood work reveals W BC 12.9, hemoglobin 10.2, potassium 3 and otherwise electrolytes and renal function normal. Blood sugar 132. AST 25, ALT 28, alkaline phosphatase 193, total bilirubin 1.5. Potassium will be replaced orally. IV fluids discontinued and placed on saline lock. 04/17: There have been no beds available at [facility] and do not it anticipate that one will be available soon. Discussed plan with the patient that she could be discharged with 2 weeks of IV antibiotics and set up an outpatient follow-up with [facility] if okay with general surgery. Patient is agreeable and asked that her daughter be contacted in [place]. Dr. Amaya spoke with Jesús over the phone. Social work and case management are following for discharge planning. Patient has a PICC line in place. She has been afebrile, heart rate 80, blood pressure 151/69, pulse ox 94% on room air. Repeat blood work reveals W BC 13.8, Hemoccult and 10.1, platelet count 223. Sodium 136 other electrolytes normal, creatinine 0.64. Blood sugars running between 119 137. Alkaline phosphatase 200. Pathology report on peritoneal fluid is hypocellular specimen consisting of mainly blood with widely scattered reactive mesothelial cells, macrophages and inflammatory cells. No cytologically being limited cells identified. There is still high suspicion for malignancy. 04/18: Patient denies any new complaints. No abdominal pain. PINKY drain in place. She is continued on IV abx which will be continued for 2 weeks from discharge. Yesterday, we were waiting for insurance authorization. No change in medication reconciliation from yesterday. She remains afebrile, HR 68, BP 121/65, PO 92% on RA. Patient will be discharged to [facility] once all arrangements are completed. ASSESSMENT AND PLAN 1. Acute cholecystitis with choledocholithiasis, and cholestatic jaundice as well as elevation of transaminase, rule out gallbladder neoplasm, status post lysis of adhesions, excisional biopsy gallbladder mass and placement of drain. 2. Diabetes mellitus type 2. 3. Acute bacteremia and sepsis secondary to ascending cholecystitis. 4. Sepsis with gram-negative bacteremia. 5. Diabetes mellitus type 2 with hemoglobin A1c of 7.5. DISCHARGE PLAN [facility] IV antibiotics, wound care and drain management. Impression and plan of care have been directed as dictated by the signing physician. Keyla Montiel nurse practitioner acting as scribe for signing physician. Patient Condition at Discharge: Good Plan - Discharge Summary Discharge Rx Participant: No New Discharge Prescriptions: New Melatonin 6 mg PO HS PRN tablet PRN Reason: sleep aid INSULIN ASPART (NovoLOG) [NovoLOG (formulary)] 0 unit SQ ACHS vial Acetaminophen Tab [Tylenol] 650 mg PO Q6HR PRN tab PRN Reason: Fever And/ Or Pain Piperacillin-Tazobactam [Zosyn] 3.375 gm IVPB Q8H #42 vial Discontinued Glimepiride [Amaryl] 4 mg PO DAILY Discharge Medication List Acetaminophen Tab [Tylenol] 650 mg PO Q6HR PRN tab 04/17/20 [Rx] INSULIN ASPART (NovoLOG) [NovoLOG (formulary)] 0 unit SQ ACHS vial 04/17/20 [Rx] Melatonin 6 mg PO HS PRN tablet 04/17/20 [Rx] Piperacillin-Tazobactam [Zosyn] 3.375 gm IVPB Q8H #42 vial 11/10/20 [Rx] Follow up Appointment(s)/Referral(s): Rachael Perez MD [STAFF PHYSICIAN] - 04/24/20 Baltazar Aamya MD [Primary Care Provider] - 1 Week (at [facility]) Activity/Diet/Wound Care/Special Instructions: Monitor blood sugar ac/hs cover with scale No lifting over 4 pounds in 4 weeks until May 08. October shower. No bath tub soaks for two weeks until May 01 Diet low fat Keep a log of PINKY drain output and bring with you to your follow-up appointment Milk/strip drains 2-3 times a day Discharge Disposition: TRANSFER TO SNF/ECF
[2020-04-17] MEDS ORDERED: MAGNESIUM SULFATE-D5W PMX 1 GM in DEXTROSE/WATER 1 100ML.BAG IVPB ONE (12:00)
[2020-04-17 12:06] LABS: Glucose,Whole Blood 120 mg/dL (75-99)
[2020-04-17 17:01] LABS: Glucose,Whole Blood 125 mg/dL (75-99)
[2020-04-17] MEDS: HYDROmorphone 1 MG/ML 1 ML SYRINGE IVP PRN (19:38)
[2020-04-17 20:19] LABS: Glucose,Whole Blood 154 mg/dL (75-99)
[2020-04-18] MEDS: PIPERACILLIN-TAZOBACTAM 3.375 GM in SODIUM CHLORIDE 0.9% 100 ML IVPB SCH ×3 (01:51→16:12)
[2020-04-18 06:31] LABS: Glucose,Whole Blood 96 mg/dL (75-99)
[2020-04-18] MEDS: INSULIN ASPART (NovoLOG) 100 UNIT/ML VIAL SQ SCH ×3 (08:05→18:26)
[2020-04-18] MEDS: HEPARIN SODIUM,PORCINE 5,000 UNIT/ML 1 ML VIAL SQ SCH (08:27)
[2020-04-18] MEDS: PANTOPRAZOLE 40 MG TABLET PO SCH (08:27)
[2020-04-18] MEDS: ONDANSETRON 4 MG/2 ML VIAL IVP PRN (08:35)
[2020-04-18] MEDS: ACETAMINOPHEN TAB 325 MG TAB PO PRN ×2 (08:35→18:44)
[2020-04-18 11:55] LABS: Glucose,Whole Blood 126 mg/dL (75-99)
[2020-04-18 14:55] VITALS: BP 145/69; PULSE 73; RESP 14; TEMP 98.3
[2020-04-18 17:00] LABS: Glucose,Whole Blood 174 mg/dL (75-99)
--- NOTE | 2020-04-19 08:18 | CDI ---
Documentation Clarification Form Date: 04/19/20 From: Harini Plunkett Phone: If you have a question about this query, please contact Agnes Rangel, Lay Out Helper at [phone] between 8am and 5pm. Admit Date: 04/09/20 Discharge Date: 04/18/20 Patient Name: AARON MARISCAL Visit Number: [id number] ATTENTION: The Clinical Documentation Specialists (CDI) and [facility] Coding Staff appreciate your assistance in clarifying documentation. Please respond to the clarification below the line at the bottom and electronically sign. The CDI & [facility] Coding staff will review the response and follow-up if needed. Please note: Queries are made part of the Legal Health Record. If you have any questions, please contact the author of this message via ITS. Dear Dr. Rachael Perez, The patient has uncontrolled Type II diabetes, as in your consult and progress notes. POC Glucose: 245, 146, 217, 194, 195, 128, 156, 163, 168, 159, 147, 151, 175, 169, 142, 148, 156, 148, 154, 174 Glucose: 258, 230, 136, 156, 132, 137 Hemoglobin A1c-7.5 Treatment: blood glucose monitoring ACHS, consistent carbohydrate diet, NovoLOG per protocol UNIT SQ ACHS Per [facility] 2016 - query the provider for clarification whether the patient has hyperglycemia or hypoglycemia so that the appropriate code may be reported - uncontrolled diabetes indicates that the patient's blood sugar is not at an acceptable level, because it is either too high or too low. In order to capture the severity of Illness and necessary documentation specificity, please clarify if Type 2 uncontrolled diabetes is: Hyperglycemia Other, please specify Unable to Determine Hyperglycemia KM 04/19/20 @ 1310 MTDD
--- NOTE | 2020-04-19 13:09 | P.PN ---
Progress Note - Text Progress Note Date: 04/19/20 Per request of patient's daughter Jesús, questions about transfer to extended care facility was answered over telephone call today. Patient's daughter updated that pathology results are skewed as ERCP is essential for final diagnoses of neoplasm. Patient also had abnormal abdominal MRI for questionable neoplasm within the pancreas. Neoplasm is still not completely excluded. Patient was transferred to extended care facility per primary admitting team for IV antibiotics pending availability of bed at tertiary care center. All questions were addressed.
--- NOTE | 2020-04-19 15:08 | CDI ---
Documentation Clarification Form Clinical Validation Date: 04/19/2020 02:40:16 PM From: Estelle Bass Rn, CCDS Admit Date: 04/09/2020 08:39:00 AM Patient Name: Shayla Flores Visit Number: [id number] Discharge Date: 04/18/2020 06:50:00 PM ATTENTION: The Clinical Documentation Specialists (CDI) and [facility] Coding Staff appreciate your assistance in clarifying documentation. Please respond to the clarification below the line at the bottom and electronically sign. The CDI & [facility] Coding staff will review the response and follow-up if needed. Please note: Queries are made part of the Legal Health Record. If you have any questions, please contact the author of this message via ITS. Dr. Rachael Perez Your patient has a documented "A small defect emanating bile was identified at the lysis of adhesion site and oversewn using 3-0 Vicryl." in the operative report that requires further clarification. History/Risk Factors: Choledocholithiasis with acute cholecystitis due to gallstones, Elevated liver enzymes with hyperbilirubinemia Diabetes type 2, [id number], History of failed ERCP Clinical Indicators: 04/12 Operative Findings: "1.Right upper quadrant mass invading anterior abdominal wall requiring complete excision of the abdominal wall component of the mass 2.Gallbladder completely encased around surrounding tissue including colon with distortion of duodenum and common bile duct structures prohibiting resection 3. Dense chronic adhesions with neoplastic process cannot be excluded of the gallbladder 4. Placement of round #19 drain at biopsy site, right upper quadrant 5. 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 Incisional biopsy gallbladder mass 3. Placement of round of #19 drain right upper quadrant Based on the clinical evidence and your professional judgment, Can you please further clarify if the small defect emanating bile was identified at the lysis of adhesion site and oversewn using 3-0 Vicryl.? Small defect emanating bile was due to adhesions Small defect emanating bile was due to adhesionolysis Small defect emanating bile Due to other cause (please specify) Unable to determine Please also indicate Expected during operative procedure Unexpected during operative procedure (Last Revision: June 2019) Small defect emanating bile was due to adhesionolysis Expected during operative procedure 04/19/20 @ 16:59 [facility]
== END 2020-04-18 18:50 | DRG 854 ==
LOC: EC 15:49 → 1SOBS 19:36 → OBSVTOIN 04-09 08:39
PROVIDERS: ADMIT Family Medicine; ATTEND Family Medicine
PROC: 0DJ08ZZ Inspection of Upper Intestinal Tract, Via Natural or Artificial Opening Endoscopic (ICD-10-PCS; 2020-04-09)
PROC: BF52200 Other Imaging of Gallbladder using Fluorescing Agent, Indocyanine Green Dye, Intraoperative (ICD-10-PCS; 2020-04-09)
PROC: BF52200 Other Imaging of Gallbladder using Fluorescing Agent, Indocyanine Green Dye, Intraoperative (ICD-10-PCS; principal; 2020-04-12 12:30)
PROC: 0DN94ZZ Release Duodenum, Percutaneous Endoscopic Approach (ICD-10-PCS; principal; 2020-04-12 12:30)
PROC: 0FN44ZZ Release Gallbladder, Percutaneous Endoscopic Approach (ICD-10-PCS; principal; 2020-04-12 12:30)
PROC: 8E0W4CZ Robotic Assisted Procedure of Trunk Region, Percutaneous Endoscopic Approach (ICD-10-PCS; principal; 2020-04-12 12:30)
PROC: 0DNW4ZZ Release Peritoneum, Percutaneous Endoscopic Approach (ICD-10-PCS; principal; 2020-04-12 12:30)
PROC: 0FB44ZX Excision of Gallbladder, Percutaneous Endoscopic Approach, Diagnostic (ICD-10-PCS; principal; 2020-04-12 12:30)
PROC: 02HV33Z Insertion of Infusion Device into Superior Vena Cava, Percutaneous Approach (ICD-10-PCS; 2020-04-13)
DX: A41.51 Sepsis due to Escherichia coli [E. coli] (principal); K86.2 Cyst of pancreas; K80.63 Calculus of gallbladder and bile duct with acute cholecystitis with obstruction; E87.2 Acidosis; E11.649 Type 2 diabetes mellitus with hypoglycemia without coma; D49.0 Neoplasm of unspecified behavior of digestive system; K66.0 Peritoneal adhesions (postprocedural) (postinfection); Z20.828 Contact with and (suspected) exposure to other viral communicable diseases; E11.65 Type 2 diabetes mellitus with hyperglycemia; E80.7 Disorder of bilirubin metabolism, unspecified; E87.6 Hypokalemia; E83.42 Hypomagnesemia; R07.2 Precordial pain; K82.8 Other specified diseases of gallbladder; Z75.1 Person awaiting admission to adequate facility elsewhere; Z79.84 Long term (current) use of oral hypoglycemic drugs; Z79.899 Other long term (current) drug therapy; Z98.51 Tubal ligation status; Z86.69 Personal history of other diseases of the nervous system and sense organs; Z98.890 Other specified postprocedural states; Z82.61 Family history of arthritis
CPT/HCPCS: 36415; 36573; 43260; 71046; 74018; 74177; 74181; 74330; 76705; 80053; 81001; 82378; 83036; 83605; 83690; 83735; 84484; 85025; 85379; 85610; 86301; 87040; 87077; 87086; 87186; 87635; 88108; 88305; 93005; 96361; 96365; 99285

== ENCOUNTER → 2020-05-30 | Outpatient (CLI) | payer MEDICARE ==
[2020-05-30 14:43] LABS: Basophils # (A) 0.1 k/uL (0-0.2); Basophils % (A) 1 %; Eosinophils # (A) 0.2 k/uL (0-0.7); Eosinophils % (A) 4 %; HGB 11.8 gm/dL (11.4-16.0); Hypochromasia Slight; Lymphocytes # (A) 1.5 k/uL (1.0-4.8); Lymphocytes % (A) 22 %; MCH 29.5 pg (25.0-35.0); MCV 95.1 fL (80.0-100.0); Mean Platelet Volume 8.2; Monocytes # (A) 0.5 k/uL (0-1.0); Monocytes % (A) 7 %; Neutrophils # (A) 4.3 k/uL (1.3-7.7); Neutrophils % (A) 65 %; Platelet Count 283 k/uL (150-450); RBC 3.99 m/uL (3.80-5.40); RDW 15.9 % (11.5-15.5); WBC 6.7 k/uL (3.8-10.6)
[2020-05-30 14:52] LABS: Albumin 4.6 g/dL (3.5-5.0); Calcium 10.4 mg/dL (8.4-10.2); Potassium 4.5 mmol/L (3.5-5.1); Total Bilirubin 0.4 mg/dL (0.2-1.3); Total Protein 7.8 g/dL (6.3-8.2)
[2020-05-30 14:55] LABS: Partial Thromboplastin Time 22.3 sec (22.0-30.0); Prothrombin Time 10.3 sec (9.0-12.0)
--- NOTE | 2020-05-30 15:51 | CT ---
EXAMINATION TYPE: CT abdomen wo/w con DATE OF EXAM: 05/30/2020 COMPARISON: CT 04/07/2020 HISTORY: Post op abdominal surgery for remnant bilomas. CT DLP: 723.8 mGycm Automated exposure control for dose reduction was used. TECHNIQUE: Helical acquisition of images was performed from the lung bases through the top of iliac crest to include entire abdomen pre and post intravenous contrast, post oral contrast. CONTRAST: Performed with Oral Contrast and without and with IV Contrast, patient injected with 100ml mL of Isov ue 300. FINDINGS: There is minimal pericardial effusion. Within the right upper quadrant there is a small focus of residual fluid attenuation inferior to the liver margin, the area measures approximately 4.3 x 2.1 by 2.6 cm. Umbilical hernia contains fat. LUNG BASES: No significant abnormality is appreciated. LIVER/GB: No significant interval change is appreciated. PANCREAS: No significant abnormality is seen. SPLEEN: No significant abnormality is seen. ADRENALS: No significant abnormality is seen. KIDNEYS: No significant interval change is seen. Punctate calcification in the right kidney with sma ll cyst, circumaortic left renal vein. BOWEL: No significant abnormality is seen. LYMPH NODES: No significant abnormality is appreciated. OSSEOUS STRUCTURES: No significant interval change is seen. FREE AIR: No Free Air visible ASCITES: None visible. RETROPERITONEAL ADENOPATHY: No Retroperitoneal Adenopathy visible. OTHER: IMPRESSION: Interval decrease in size of fluid collection right upper quadrant.
== END | disposition home or self-care (01) ==
LOC: RADCTMAIN 13:55
PROVIDERS: ATTEND Transplant Surgery
DX: K83.8 Other specified diseases of biliary tract (principal); K76.89 Other specified diseases of liver
CPT/HCPCS: 80053; 85025; 85610; 85730; 74170; 36415; Q9967

== ENCOUNTER → 2020-08-13 | Outpatient (CLI) | payer MEDICARE ==
[2020-08-13 10:04] LABS: ALT 24 U/L (4-34); AST 32 U/L (14-36); African American GFR (CKD) >90 (>60 ml/min/1.73 sqM); Albumin 4.5 g/dL (3.5-5.0); Alkaline Phosphatase 109 U/L (38-126); Anion Gap 5 mmol/L; Blood Urea Nitrogen 22 mg/dL (7-17); Calcium 9.8 mg/dL (8.4-10.2); Carbon Dioxide 31 mmol/L (22-30); Chloride 103 mmol/L (98-107); Glucose 153 mg/dL (74-99); Non-African American GFR(CKD) 80 (>60 ml/min/1.73 sqM); Potassium 4.6 mmol/L (3.5-5.1); Sodium 139 mmol/L (137-145); Total Bilirubin 0.6 mg/dL (0.2-1.3); Total Protein 7.3 g/dL (6.3-8.2)
--- NOTE | 2020-08-13 11:38 | CT ---
EXAMINATION TYPE: CT abdomen wo/w con DATE OF EXAM: 08/13/2020 HISTORY: Recommend bilomas or fluid collections after cholecystectomy. CT DLP: 614mGycm Automated Exposure Control for Dose Reduction was Utilized. CONTRAST: CT scan of the abdomen is performed with oral and without and with IV Contrast, patient injected with 100 mL of Isovue 300. COMPARISON: CT abdomen May 30, 2020 FINDINGS: LUNG BASES: No significant abnormality is appreciated. LIVER/GB: At level of gallbladder fossa extending anteriorly there is persistent rim-enhancing slight ly irregular small fluid collection measuring 4.1 x 1.7 cm series 12 image 17 stable or slightly smal ler from prior CT. Normal gallbladder not seen and correlates with history of cholecystectomy. PANCREAS: No significant abnormality is seen. SPLEEN: No significant abnormality is seen. ADRENALS: No significant abnormality is seen. KIDNEYS: No significant abnormality is seen. BOWEL: Scattered diverticula and nonopacified colon. Suboptimal evaluation of distal bowel as oral co ntrast does not reach terminal ileum. LYMPH NODES: No greater than 1cm abdominal lymph nodes are appreciated. OSSEOUS STRUCTURES: Facet arthropathy lower lumbar levels. The convex scoliotic curvature lumbosacral junction. Mild disc space narrowing and vacuum disc phenomenon and lower lumbar levels. No significa nt change from prior. OTHER: Stable moderate-size left periumbilical hernia containing fat and tiny mesenteric vessels. IMPRESSION: Small rim-enhancing slightly irregular focal fluid collection inferior aspect of liver ex tending from gallbladder fossa is stable or slightly smaller in size from most recent CT.
== END | disposition home or self-care (01) ==
LOC: RADCTMAIN 09:12
PROVIDERS: ATTEND Transplant Surgery
DX: Z48.815 Encounter for surgical aftercare following surgery on the digestive system (principal); R93.2 Abnormal findings on diagnostic imaging of liver and biliary tract; Z90.49 Acquired absence of other specified parts of digestive tract
CPT/HCPCS: 80053; 74170; 36415; Q9967

== ENCOUNTER → 2021-03-26 | Outpatient (CLI) | payer MEDICARE ==
[2021-03-26 12:19] LABS: Basophils # (A) 0.17 X 10*3/uL (0.00-0.10); Basophils % (A) 2.5 %; Eosinophils # (A) 0.42 X 10*3/uL (0.04-0.35); Eosinophils % (A) 6.2 %; HCT 39.7 % (37.2-46.3); HGB 12.6 g/dL (12.0-15.0); Lymphocytes # (A) 1.35 X 10*3/uL (0.90-5.00); MCH 32.6 pg (27.0-32.0); MCHC 31.7 g/dL (32.0-37.0); MCV 102.8 fL (80.0-97.0); Monocytes # (A) 1.13 X 10*3/uL (0.20-1.00); Monocytes % (A) 16.7 %; Neutrophils # (A) 3.62 X 10*3/uL (1.80-7.70); Neutrophils % (A) 53.6 %; Platelet Count 186 X 10*3/uL (140-440); RBC 3.86 X 10*6/uL (4.10-5.20); WBC 6.76 X 10*3/uL (4.50-10.00)
[2021-03-26 15:55] LABS: African American GFR (CKD) 72.3 (60.0-200.0); Anion Gap 14.6 mmol/L (4.00-12.00); Blood Urea Nitrogen 19.6 mg/dL (9.0-27.0); Carbon Dioxide 23.1 mmol/L (21.6-31.8); Non-African American GFR(CKD) 62.4 (60.0-200.0); Potassium 4.5 mmol/L (3.5-5.5)
== END | disposition home or self-care (01) ==
LOC: LABWHC1 07:59
PROVIDERS: ATTEND Obstetrics & Gynecology
DX: Z01.818 Encounter for other preprocedural examination (principal); N81.11 Cystocele, midline; E11.9 Type 2 diabetes mellitus without complications; R94.31 Abnormal electrocardiogram [ECG] [EKG]
CPT/HCPCS: 36415; 80051; 82565; 82947; 84520; 85025; 86850; 86900; 86901; 93005

== ENCOUNTER 2021-04-01 07:53 | Day surgery (SDC) | payer MEDICARE ==
[2021-03-27 09:23] VITALS: BMI 25.7
[2021-04-01] MEDS ORDERED: MIDAZOLAM 2 MG/2 ML VIAL IV PRN (08:10)
[2021-04-01] MEDS ORDERED: ONDANSETRON 4 MG/2 ML VIAL IVP ONE (08:10)
[2021-04-01] MEDS ORDERED: DEXAMETHASONE SOD PHOSPHATE 4 MG/ML 1 ML VIAL IV ONE (08:10)
[2021-04-01] MEDS ORDERED: HYDROmorphone 0.5 MG/0.5 ML SYRINGE IVP PRN ×2 (08:10→09:10)
[2021-04-01] MEDS: LACTATED RINGERS 1,000 ML IV SCH ×3 (08:30→19:09)
[2021-04-01] MEDS ORDERED: LIDOCAINE 1% (10MG/ML) FOR IV START INTRADERMA ONE (08:30)
[2021-04-01 08:52] LABS: Glucose,Whole Blood 140 mg/dL (75-99)
[2021-04-01] MEDS ORDERED: MIDAZOLAM 2 MG/2 ML VIAL IV ONE (09:00)
[2021-04-01] MEDS ORDERED: NALOXONE 0.4 MG/ML 1 ML VIAL IV PRN (09:10)
[2021-04-01] MEDS ORDERED: diphenhydrAMINE 50 MG/ML 1 ML VIAL IVP PRN ×2 (09:10→10:35)
[2021-04-01] MEDS ORDERED: KETOROLAC 15 MG/ML 1 ML VIAL IVP PRN (09:10)
[2021-04-01] MEDS ORDERED: ONDANSETRON 4 MG/2 ML VIAL IVP PRN (09:10)
--- NOTE | 2021-04-01 09:10 | P.ANPRN ---
Procedure Note - Anesthesia - Epidural/Spinal Spinal Time Out Performed: Yes Date of Procedure: 04/01/21 Procedure Start Time: 08:59 Procedure Stop Time: 09:05 Location of Patient: PreOp Indication: Requested by Surgeon Sedation Type: Sedate with meaningful contact maintained Preparation: Sterile Dressing Position: Sitting Needle Guage: 25 Blood Aspirated: No Pain Paresthesia on Injection Noted: No Events: Uneventful and Well Tolerated (Duramorp 250 mcg + fentanyle 25 mcg)
[2021-04-01] MEDS ORDERED: MORPHINE SULFATE (PF) 0.3 MG/0.3 ML SYR ONE (09:23)
[2021-04-01] MEDS ORDERED: PROPOFOL 10 MG/ML 20 ML VIAL IV ONE (09:23)
[2021-04-01] MEDS ORDERED: fentaNYL (PF) 50 MCG/ML 2 ML AMP ONE (09:23)
[2021-04-01] MEDS ORDERED: LIDOCAINE 1% INJ 10MG/ML (20 ML MDV) ONE (09:23)
[2021-04-01] MEDS ORDERED: SUCCINYLCHOLINE CHLORIDE 100 MG/5 ML SYR IV ONE (09:23)
[2021-04-01] MEDS ORDERED: VASOPRESSIN 20 UNIT/ML 1 ML VIAL SQ ONE (09:40)
[2021-04-01] MEDS ORDERED: BACITRACIN ZINC 500 UNIT/GM OINT 28.4 GM TUBE TOPICAL ONE ×2 (09:53→10:22)
[2021-04-01] MEDS ORDERED: SIMETHICONE 80 MG CHEWABLE PO PRN (10:35)
[2021-04-01] MEDS ORDERED: METOCLOPRAMIDE 5 MG/ML 2 ML VIAL IVP PRN (10:35)
[2021-04-01] MEDS ORDERED: ZOLPIDEM 5 MG TAB PO PRN (10:35)
--- NOTE | 2021-04-01 10:35 | P.OP ---
Date of Procedure: 04/01/21 Preoperative Diagnosis: Grade 4 cystocele, grade 3-4 uterine prolapse Postoperative Diagnosis: Same, normal-appearing ovaries bilaterally, small asymptomatic rectocele Procedure(s) Performed: Vaginal hysterectomy, anterior colporrhaphy Anesthesia: MERLENE Surgeon: Rachael White Dredge Pump Operator #1: Kaveh Higgins Estimated Blood Loss (ml): 25 IV fluids (ml): 400 Urine output (ml): 50 Pathology: other (Cervix and uterus) Condition: stable Disposition: PACU Operative Findings: Normal-appearing ovaries bilaterally, small grade 1-2 rectocele. Description of Procedure: Patient is brought to the operating suite where a general anesthetic is administered without difficulty. Spinal with Duramorph was placed in the preoperative area. She is placed in the dorsal lithotomy position. Abdomen, cervix, and vaginal vault are all prepped and draped in the usual sterile fashion. The appropriate timeout is performed to assure proper patient and procedural identification. Bladder is drained for prostate 50 mL of clear yellow urine. Weighted speculum was placed into the vagina. Anterior lip of the cervix is grasped with a double-tooth tenaculum. Cervix is injected circumferentially with a dilute Pitressin solution. A kaguyuk blade scalpel is used to incise the mucosa circumferentially with a V positioning at 6:00. Sponge rolled finger is used to keep the tissue swept well from the operative field, to avoid bladder and/or ureteral injury. Peritoneum is entered at 6:00 with a Metzenbaum scissor, suture tied with 2-0 Vicryl and held with a hemostat. The large billed speculum is then placed into the peritoneal cavity. The right uterosacral ligament complex is identified, clamped with a Duncan, cut, tied with 0 Vicryl suture with a Duncan stitch, and held with a hemostat laterally. Same procedure is carried out contralaterally. Again mucosa is swept very carefully away from the operative field at all times. Uterine vasculature is identified, clamped cut and suture ligated. 2 additional pedicles are taken superior to the vessels. Peritoneum was then entered at 12:00 and the uterus is "walked out" posteriorly. Torie clamps are used around the final pedicles. Cervix and uterus are removed and sent to pathology for evaluation. 0 Vicryl sutures used across the pedicles and a Duncan stitch to tie, flashed, and retied for excellent hemostasis. Sponge stick is then used and both ovaries are identified, within normal limits and therefore left in situ. All vascular pedicles are clean and dry. The speculum was switched to the shallow billed speculum and the 2-0 Vicryl is now brought around in a pursestring fashion to close the peritoneum. The uterosacral cardinal ligaments are brought across to incorporate the opposite ligament as well as vaginal mucosa to help suspend the vaginal cough. An additional kmyfym-co-vojck sutures used inferior to this to close the vagina. The anterior portion is held with Allis clamps and the anterior repair is commenced. The mucosa is injected in the midline with dilute Pitressin solution. Metzenbaum scissors are used to undermine the mucosa in the midline to approximately 1.5 cm inferior to the urethra. A sponge rolled finger is used to separate the underlying fascial plane from the overlying mucosa. Gomez catheter is then placed in the urine is clear. 2-0 Vicryl sutures are used in an interrupted fashion to bring the fascial edges together thereby completely eliminating the cystocele. Mucosa is trimmed with Metzenbaum scissors. 2-0 Vicryl is used in a running locking stitch to close the anterior vaginal wall for excellent reapproximation and suspension. The vagina is clean and dry. It is packed with one-inch iodophor gauze with basic tracing. Gomez is noted to be draining clear urine. Patient is brought back to the recovery room in very good condition with stable vital signs including blood pressure 105/55, pulse 56, 100% O2 saturation. All sponge needle and instrument counts are correct.
[2021-04-01 11:17] LABS: Glucose,Whole Blood 155 mg/dL (75-99)
[2021-04-01 12:08] LABS: Glucose,Whole Blood 179 mg/dL (75-99)
[2021-04-01] MEDS ORDERED: metFORMIN 500 MG TAB PO SCH (12:45)
[2021-04-01 17:37] LABS: Glucose,Whole Blood 205 mg/dL (75-99)
[2021-04-01] MEDS: metFORMIN 500 MG TAB PO SCH (21:00)
[2021-04-02] MEDS: LACTATED RINGERS 1,000 ML IV SCH (00:50)
[2021-04-02 07:31] LABS: Glucose,Whole Blood 176 mg/dL (75-99)
--- NOTE | 2021-04-02 07:48 | P.DS ---
Providers Date of admission: 04/01/21 Expected date of discharge: 04/02/21 Attending physician: Rachael White Primary care physician: [facility] Hospital Course: This is a 76-year-old female who presented with increasingly symptomatic uterine prolapse and cystocele, for surgical repair. She was offered and declined the option of pessary. Please see admitting history and physical for details. Patient was admitted and underwent vaginal hysterectomy, anterior colporrhaphy under my care yesterday. She did well intraoperatively. The ovaries appeared normal and were left in situ. Vaginal packing was placed. Patient did receive spinal with Duramorph along with general anesthetic. Please see dictated operative note for details. This morning the patient is doing well. She had nausea and emesis last night, resolve this morning. She recovered complains of no pain. Vaginal packing and Gomez catheter has been removed. We are awaiting spontaneous void and we'll check postvoid residual. Pending normal residual, patient will be discharged home later today. She is judged to be in very good condition for discharge. Blood sugar this morning 184. Continue metformin twice daily. Ejzi-xmo-hodysij pain meds as needed, Advil or Aleve, or Motrin 600 mg every 6 hours. No intercourse, tampons or douching, heavy lifting, or driving for 2 weeks. Postoperative restrictions reviewed. Patient will call with any fevers shakes or chills, foul smelling or bloody vaginal drainage, with any pain not alleviated by yowb-bvz-zpwrxxg count products, with any issues defecating or voiding, or indeed with any concerns. Assessment: Doing well first postoperative day Patient Condition at Discharge: Good Plan - Discharge Summary Discharge Rx Participant: No New Discharge Prescriptions: No Action metFORMIN HCL [Glucophage] 1,000 mg PO QAM Discharge Medication List metFORMIN HCL [Glucophage] 1,000 mg PO QAM 03/27/21 [History] Follow up Appointment(s)/Referral(s): Rachael White MD [STAFF PHYSICIAN] - 2 Weeks Discharge Disposition: HOME SELF-CARE
[2021-04-02] MEDS: metFORMIN 500 MG TAB PO SCH (08:02)
--- NOTE | 2021-04-02 08:12 | P.PN ---
Progress Note - Text Progress Note Date: 04/02/21 Status post vaginal hysterectomy postop day 1, patient had spinal Duramorph with fentanyl for postop pain control. Patient denied any problems with medications. Currently doing well. Patient is ambulating well without any difficulty. No issues with the bladder, bowel. Patient is hemodynamically stable. White is reviewed in the EMR.
[2021-04-02 08:21] VITALS: RESP 16
[2021-04-02 08:25] VITALS: BP 116/62; PULSE 83; TEMP 98.3
[2021-04-02] MEDS ORDERED: ACETAMINOPHEN TAB 325 MG TAB PO PRN (10:37)
== END 2021-04-02 09:25 | disposition home or self-care (01) ==
LOC: OR 07:53 → 4FBP 10:51 → OR 04-02 09:25
PROVIDERS: ATTEND Obstetrics & Gynecology
DX: N81.3 Complete uterovaginal prolapse (principal); Z20.822 Contact with and (suspected) exposure to COVID-19; E11.9 Type 2 diabetes mellitus without complications; K21.9 Gastro-esophageal reflux disease without esophagitis; G43.909 Migraine, unspecified, not intractable, without status migrainosus; L40.9 Psoriasis, unspecified; R00.1 Bradycardia, unspecified; R41.3 Other amnesia; Z79.899 Other long term (current) drug therapy; Z79.84 Long term (current) use of oral hypoglycemic drugs
CPT/HCPCS: 87635; 58260; J2250; J1100; J2765; J0690; J2405; 88307

== ENCOUNTER 2024-08-26 12:48 | Emergency (ER) | payer MEDICARE ==
--- NOTE | 2024-08-26 14:09 | ED ---
General Adult HPI - General Chief complaint: Upper Respiratory Infection Stated complaint: Cough Time Seen by Provider: 08/26/24 13:11 Source: patient, family, RN notes reviewed Mode of arrival: ambulatory Limitations: no limitations - History of Present Illness Initial comments: This is a 79-year-old female with no reported medical history presents emergency department for complaint of a cough over the past 3 to 5 days. She states that the cough ranges from dry to productive. She denies associated difficulty in breathing, chest pain, heart palpitations, fevers, chills. Endorses mild rhinorrhea and congestion. Overall states that she is feeling well. - Related Data Home Medications Medication Instructions Recorded Confirmed metFORMIN HCL [Glucophage] 1,000 mg PO QAM 03/27/21 03/27/21 Previous Rx's Medication Instructions Recorded Benzonatate [Tessalon Perles] 100 mg PO TID PRN #15 capsule 08/26/24 Allergies Allergy/AdvReac Type Severity Reaction Status Date / Time No Known Allergies Allergy Verified 04/01/21 08:14 Review of Systems ROS Statement: Those systems with pertinent positive or pertinent negative responses have been documented in the HPI. ROS Other: All systems not noted in ROS Statement are negative. Past Medical History Past Medical History: Diabetes Mellitus Additional Past Medical History / Comment(s): HAS A PESSARY History of Any Multi-Drug Resistant Organisms: None Reported Past Surgical History: Tubal Ligation Additional Past Surgical History / Comment(s): EYE SX TODDLER Past Anesthesia/Blood Transfusion Reactions: No Reported Reaction Past Psychological History: No Psychological Hx Reported Smoking Status: Never smoker Past Alcohol Use History: Rare - Past Family History Mother Family Medical History: No Reported History Father Family Medical History: No Reported History Brother(s) Family Medical History: Osteoarthritis (OA) Sister(s) Family Medical History: No Reported History Daughter(s) Family Medical History: No Reported History Son(s) Family Medical History: No Reported History General Exam Limitations: no limitations ENT exam: Present: normal exam, mucous membranes moist Respiratory exam: Present: normal lung sounds bilaterally. Absent: respiratory distress, wheezes, rales, rhonchi, stridor Cardiovascular Exam: Present: regular rate, normal rhythm, normal heart sounds. Absent: systolic murmur, diastolic murmur, rubs, gallop, clicks GI/Abdominal exam: Present: soft, normal bowel sounds. Absent: distended, tenderness, guarding, rebound, rigid Extremities exam: Present: normal inspection, full ROM, normal capillary refill. Absent: tenderness, pedal edema, joint swelling, calf tenderness Right Shoulder Exam: Absent: full ROM, tenderness, swelling, abrasion, ecchymosis, deformity Neuro motor exam: Present: wrist extension intact, thumb opposition intact Vascular: Present: radial pulse (2+). Absent: vascular compromise Back exam: Present: normal inspection. Absent: tenderness (mid thoracic spine pain to palpation, no deformity), CVA tenderness (R), CVA tenderness (L) Course Vital Signs 08/26/24 12:58 Temperature 98.0 F Pulse Rate 62 Respiratory 18 Rate Blood Pressure 133/70 O2 Sat by Pulse 96 Oximetry Medical Decision Making - Medical Decision Making Was pt. sent in by a medical professional or institution (, PA, PROPERTY AND EQUIPMENT CLERK, urgent care, hospital, or prison...) When possible be specific @ -No Did you speak to anyone other than the patient for history (EMS, parent, family, police, friend...)? What history was obtained from this source @ -No Did you review nursing and triage notes (agree or disagree)? Why? @ -I reviewed and agree with nursing and triage notes Were old charts reviewed (outside hosp., previous admission, EMS record, old EKG , old radiological studies, urgent care reports/EKG's, prison records)? Report findings @ -No old charts were reviewed Differential Diagnosis (chest pain, altered mental status, abdominal pain women, abdominal pain men, vaginal bleeding, weakness, fever, dyspnea, syncope, headache, dizziness, GI bleed, back pain, seizure, CVA, palpatations, mental health, musculoskeletal)? @ -COVID 19, RSV, influenza, pneumonia, acute bronchitis, URI, this list is not all inclusive EKG interpreted by me (3pts min.). @ -None X-rays interpreted by me (1pt min.). @ -Chest x-ray no acute cardiopulmonary process or disease CT interpreted by me (1pt min.). @ -None done U/S interpreted by me (1pt. min.). @ -None done What testing was considered but not performed or refused? (CT, X-rays, U/S, labs)? Why? @ -None What meds were considered but not given or refused? Why? @ -None Did you discuss the management of the patient with other professionals (professionals i.e. , PA, PROPERTY AND EQUIPMENT CLERK, lab, RT, psych nurse, social media editor, lawyers, teacher, fire prevention officer, director case)? Give summary @ -No Was smoking cessation discussed for >3mins.? @ -No Was critical care preformed (if so, how long)? @ -No Were there social determinants of health that impacted care today? How? (Homelessness, low income, unemployed, alcoholism, drug addiction, transportation, low edu. Level, literacy, decrease access to med. care, penitentiary, rehab)? @ -No Was there de-escalation of care discussed even if they declined (Discuss DNR or withdrawal of care, Hospice)? DNR status @ -No What co-morbidities impacted this encounter? (DM, HTN, Smoking, COPD, CAD, Cancer, CVA, ARF, Chemo, Hep., AIDS, mental health diagnosis, sleep apnea, morbid obesity)? @ -None Was patient admitted / discharged? Hospital course, mention meds given and route, prescriptions, significant lab abnormalities, going to OR and other pertinent info. @ -Discharge. 79-year-old female presenting with URI symptoms. Overall she is well-appearing in no signs of acute distress. Initial vitals are stable. Patient is tested positive for influenza A. Chest x-ray is unremarkable. Supportive treatment discussed at bedside. Case discussed with Dr. Denis Undiagnosed new problem with uncertain prognosis? @ -No Drug Therapy requiring intensive monitoring for toxicity (Heparin, Nitro, Insulin, Cardizem)? @ -No Were any procedures done? @ -No Diagnosis/symptom? @ -influenza A Acute, or Chronic, or Acute on Chronic? @ -acute Uncomplicated (without systemic symptoms) or Complicated (systemic symptoms)? @ -uncomplicated Side effects of treatment? @ -No Exacerbation, Progression, or Severe Exacerbation? @ -No Poses a threat to life or bodily function? How? (Chest pain, USA, SC, pneumonia, PE, COPD, DKA, ARF, appy, cholecystitis, CVA, Diverticulitis, Homicidal, S uicidal, threat to staff... and all critical care pts) @ -No - Lab Data Lab Results 08/26/24 Range/Units 14:31 Influenza Type A (PCR) Detected A (Not Detectd) Influenza Type B (PCR) Not Detected (Not Detectd) RSV (PCR) Not Detected (Not Detectd) SARS-CoV-2 (PCR) Not Detected (Not Detectd) Disposition Clinical Impression: Influenza A Disposition: HOME SELF-CARE Condition: Good Instructions (If sedation given, give patient instructions): Influenza (DC) Additional Instructions: Please return to the Emergency Department if symptoms worsen or any other concerns. Prescriptions: Benzonatate [Tessalon Perles] 100 mg PO TID PRN #15 capsule PRN Reason: Cough Is patient prescribed a controlled substance at d/c from ED?: No Referrals: Baltazar Amaya MD [Primary Care Provider] - 1-2 days Time of Disposition: 15:30
--- NOTE | 2024-08-26 14:19 | XR ---
EXAMINATION TYPE: XR chest 2V DATE OF EXAM: 08/26/2024 1:51 PM COMPARISON: Chest radiographs from 04/15/2020 TECHNIQUE: XR chest 2V Frontal and lateral views of the chest. CLINICAL INDICATION:Female, 79 years old with history of cough, ROSMERY; FINDINGS: Lungs/Pleura: There is no evidence of pleural effusion, focal consolidation, or pneumothorax. Chroni c senescent parenchymal change. Pulmonary vascularity: Unremarkable. Heart/mediastinum: Cardiomediastinal silhouette is unremarkable. Musculoskeletal: No acute osseous pathology. IMPRESSION: No acute cardiopulmonary disease/process. [facility] [place], , 08/26/2024 2:16 PM
[2024-08-26] MEDS: methylPREDNISolone SOD SUCCI 125 MG/2 ML VIAL IM ONE (14:37)
[2024-08-26 15:12] LABS: Influenza A Detected (Not Detectd); Influenza B Not Detected (Not Detectd); RSV Not Detected (Not Detectd)
[2024-08-26 15:49] VITALS: BP 131/75; PULSE 58; RESP 20; TEMP 98.5
== END 2024-08-26 15:54 | disposition home or self-care (01) ==
LOC: EC 12:48
DX: J10.1 Influenza due to other identified influenza virus with other respiratory manifestations (principal); Z11.52 Encounter for screening for COVID-19
CPT/HCPCS: 87636; 71046; 99283; 96372; J2919

== ENCOUNTER 2024-09-19 14:25 | Emergency (ER) | payer MEDICARE ==
--- NOTE | 2024-09-19 14:43 | ED ---
General Adult HPI - General Chief complaint: Abdominal Pain Stated complaint: Vomiting Time Seen by Provider: 09/19/24 14:30 Source: patient, family, RN notes reviewed, old records reviewed Mode of arrival: ambulatory Limitations: no limitations - History of Present Illness Initial comments: This is a 79-year-old female who presents to the emergency department stating that she has had a four 5-day history of some abdominal pain just not feeling well. Patient was vomiting starting yesterday and had a little vomiting today. Patient also states she had a little bit of diarrhea but thinks overall she is constipated. Patient denies any fever chills or cough. Patient Nuys chest pain or palpitation. Patient denies any difficulty breathing or shortness of breath. Patient denies any dysuria hematuria urinary frequency. - Related Data Home Medications Medication Instructions Recorded Confirmed Atorvastatin [Lipitor] 10 mg PO W/LUNCH 09/19/24 09/19/24 Donepezil [Aricept] 10 mg PO W/LUNCH 09/19/24 09/19/24 Pioglitazone [Actos] 45 mg PO W/LUNCH 09/19/24 09/19/24 metFORMIN HCL [Glucophage] 1,000 mg PO W/LUNCH 09/19/24 09/19/24 Allergies Allergy/AdvReac Type Severity Reaction Status Date / Time No Known Allergies Allergy Verified 04/01/21 08:14 Review of Systems ROS Statement: Those systems with pertinent positive or pertinent negative responses have been documented in the HPI. ROS Other: All systems not noted in ROS Statement are negative. Past Medical History Past Medical History: Dementia, Diabetes Mellitus Additional Past Medical History / Comment(s): HAS A PESSARY History of Any Multi-Drug Resistant Organisms: None Reported Past Surgical History: Tubal Ligation Additional Past Surgical History / Comment(s): EYE SX TODDLER Past Anesthesia/Blood Transfusion Reactions: No Reported Reaction Past Psychological History: No Psychological Hx Reported Smoking Status: Never smoker Past Alcohol Use History: Rare - Past Family History Mother Family Medical History: No Reported History Father Family Medical History: No Reported History Brother(s) Family Medical History: Osteoarthritis (OA) Sister(s) Family Medical History: No Reported History Daughter(s) Family Medical History: No Reported History Son(s) Family Medical History: No Reported History General Exam - General Exam Comments Initial Comments: GENERAL: Patient is well-developed and well-nourished. Patient is nontoxic and well- hydrated and is in mild distress. ENT: Neck is soft and supple. No significant lymphadenopathy is noted. Oropharynx is clear. Moist mucous membranes. Neck has full range of motion without eliciting any pain. EYES: The sclera were anicteric and conjunctiva were pink and moist. Extraocular movements were intact and pupils were equal round and reactive to light. Ey elids were unremarkable. PULMONARY: Unlabored respirations. Good breath sounds bilaterally. No audible rales rhonchi or wheezing was noted. CARDIOVASCULAR: There is a regular rate and rhythm without any murmurs gallops or rubs. ABDOMEN: Mid left abdominal tenderness no rebound SKIN: Skin is clear with no lesions or rashes and otherwise unremarkable. NEUROLOGIC: Patient is alert and oriented x3. Cranial nerves II through XII are grossly intact. Motor and sensory are also intact. Normal speech, volume and content. Symmetrical smile. MUSCULOSKELETAL: Normal extremities with adequate strength and full range of motion. LYMPHATICS: No significant lymphadenopathy is noted PSYCHIATRIC: Normal psychiatric evaluation. Limitations: no limitations Course Vital Signs 09/19/24 09/19/24 14:27 16:17 Temperature 98 F 97.7 F Pulse Rate 70 61 Respiratory 20 19 Rate Blood Pressure 118/72 123/57 O2 Sat by Pulse 98 98 Oximetry Medical Decision Making - Medical Decision Making Was pt. sent in by a medical professional or institution (, PA, TAPING MACHINE OPERATOR, urgent care, hospital, or custodial...) When possible be specific @ -No Did you speak to anyone other than the patient for history (EMS, parent, family, police, friend...)? What history was obtained from this source @ -No Did you review nursing and triage notes (agree or disagree)? Why? @ -I reviewed and agree with nursing and triage notes Were old charts reviewed (outside hosp., previous admission, EMS record, old EKG, old radiological studies, urgent care reports/EKG's, custodial records)? Report findings @ -No old charts were reviewed Differential Diagnosis? @ -Differential Abdominal Pain Women: Appendicitis, Cholecystitis, diverticulosis, ischemic bowel, pancreatitis, he patitis, UTI, gastroenteritis, AAA, incarcerated hernia, bowel obstruction, constipation, inflammatory bowel, hepatitis, peptic ulcer disease, splenic infarction, perforated viscus, vulvitis, ovarian torsion, PID, kidney stone, placenta abruption, this is not meant to be an all-inclusive list EKG interpreted by me (3pts min.). @ -As above X-rays interpreted by me (1pt min.). @ -None done CT interpreted by me (1pt min.). @ -CAT scan shows a little enterocolitis. U/S interpreted by me (1pt. min.). @ -None done What testing was considered but not performed or refused? (CT, X-rays, U/S, labs)? Why? @ -None What meds were considered but not given or refused? Why? @ -None Did you discuss the management of the patient with other professionals (professionals i.e. , PA, TAPING MACHINE OPERATOR, lab, RT, psych nurse, protective services social worker, shooter's helper, teacher, community services officer, case packer and sealer)? Give summary @ -No Was smoking cessation discussed for >3mins.? @ -No Was critical care preformed (if so, how long)? @ -No Were there social determinants of health that impacted care today? How? (Homelessness, low income, unemployed, alcoholism, drug addiction, transportation, low edu. Level, literacy, decrease access to med. care, halfway, rehab)? @ -No Was there de-escalation of care discussed even if they declined (Discuss DNR or withdrawal of care, Hospice)? DNR status @ -No What co-morbidities impacted this encounter? (DM, HTN, Smoking, COPD, CAD, Cancer, CVA, ARF, Chemo, Hep., AIDS, mental health diagnosis, sleep apnea, morb id obesity)? @ -None Was patient admitted / discharged? Hospital course, mention meds given and rout e, prescriptions, significant lab abnormalities, going to OR and other pertinent info. @ -Patient's lab work came back within normal range. Patient's CAT scan showed enterocolitis I went back and reviewed the results with the patient she stated she felt considerably better already and stated she was no longer nauseous but would like to go home with some antinausea meds. Patient will be sent home with some. Undiagnosed new problem with uncertain prognosis? @ -No Drug Therapy requiring intensive monitoring for toxicity (Heparin, Nitro, Insulin, Cardizem)? @ -No Were any procedures done? @ -No Diagnosis/symptom? @ -Enterocolitis Acute, or Chronic, or Acute on Chronic? @ -Acute Uncomplicated (without systemic symptoms) or Complicated (systemic symptoms)? @ -Complicated Side effects of treatment? @ -No Exacerbation, Progression, or Severe Exacerbation? @ -No Poses a threat to life or bodily function? How? (Chest pain, USA, DC, pneumonia, PE, COPD, DKA, ARF, appy, cholecystitis, CVA, Diverticulitis, Homicidal, Suicidal, threat to staff... and all critical care pts) @ -No - Lab Data Result diagrams: 09/19/24 14:59 09/19/24 14:59 Lab Results 09/19/24 09/19/24 09/19/24 Range/Units 14:59 14:59 14:59 WBC 9.36 (4.50-10.00) 10*3/uL RBC 3.44 L (4.10-5.20) 10*6/uL Hgb 11.8 L (12.0-15.0) g/dL Hct 35.1 L (37.2-46.3) % MCV 102.0 H (80.0-97.0) fL MCH 34.3 H (27.0-32.0) pg MCHC 33.6 (32.0-37.0) g/dL Plt Count 159 (140-440) 10*3/uL MPV 11.3 (9.5-12.2) fL Immature Gran % (Auto) 0.4 % Neutrophils % 68.1 % Lymphocytes % 9.1 % Monocytes % 18.7 % Eosinophils % 2.4 % Basophils % 1.3 % Immature Gran # 0.04 (0.00-0.04) 10*3/uL Neutrophils # 6.38 (1.80-7.70) 10*3/uL Lymphocytes # 0.85 L (0.90-5.00) 10*3/uL Monocytes # 1.75 H (0.20-1.00) 10*3/uL Eosinophils # 0.22 (0.04-0.35) 10*3/uL Basophils # 0.12 H (0.00-0.10) 10*3/uL Sodium 139 (137-145) mmol/L Potassium 4.1 (3.5-5.1) mmol/L Chloride 103 (98-107) mmol/L Carbon Dioxide 29 (22-30) mmol/L Anion Gap 7 mmol/L BUN 21 H (7-17) mg/dL Creatinine 0.82 (0.52-1.04) mg/dL Est GFR (CKD-EPI)AfAm 79 (>60 ml/min/1.73 sqM) Est GFR (CKD-EPI)NonAf 68 (>60 ml/min/1.73 sqM) Glucose 162 H (74-99) mg/dL Plasma Lactic Acid Jeevan 1.4 (0.7-2.0) mmol/L Calcium 9.7 (8.4-10.2) mg/dL Total Bilirubin 0.8 (0.2-1.3) mg/dL AST 23 (14-36) U/L ALT 19 (4-34) U/L Alkaline Phosphatase 65 (38-126) U/L Total Protein 6.5 (6.3-8.2) g/dL Albumin 3.9 (3.5-5.0) g/dL Amylase 47 (30-110) U/L Lipase 85 (23-300) U/L Urine Color Urine Appearance (Clear) Urine pH (5.0-8.0) Ur Specific [place] (1.001-1.035) Urine Protein (Negative) Urine Glucose (UA) (Negative) Urine Ketones (Negative) Urine Blood (Negative) Urine Nitrite (Negative) Urine Bilirubin (Negative) Urine Urobilinogen (<2.0) mg/dL Ur Leukocyte Esterase (Negative) 09/19/24 Range/Units 17:03 WBC (4.50-10.00) 10*3/uL RBC (4.10-5.20) 10*6/uL Hgb (12.0-15.0) g/dL Hct (37.2-46.3) % MCV (80.0-97.0) fL MCH (27.0-32.0) pg MCHC (32.0-37.0) g/dL Plt Count (140-440) 10*3/uL MPV (9.5-12.2) fL Immature Gran % (Auto) % Neutrophils % % Lymphocytes % % Monocytes % % Eosinophils % % Basophils % % Immature Gran # (0.00-0.04) 10*3/uL Neutrophils # (1.80-7.70) 10*3/uL Lymphocytes # (0.90-5.00) 10*3/uL Monocytes # (0.20-1.00) 10*3/uL Eosinophils # (0.04-0.35) 10*3/uL Basophils # (0.00-0.10) 10*3/uL Sodium (137-145) mmol/L Potassium (3.5-5.1) mmol/L Chloride (98-107) mmol/L Carbon Dioxide (22-30) mmol/L Anion Gap mmol/L BUN (7-17) mg/dL Creatinine (0.52-1.04) mg/dL Est GFR (CKD-EPI)AfAm (>60 ml/min/1.73 sqM) Est GFR (CKD-EPI)NonAf (>60 ml/min/1.73 sqM) Glucose (74-99) mg/dL Plasma Lactic Acid Jeevan (0.7-2.0) mmol/L Calcium (8.4-10.2) mg/dL Total Bilirubin (0.2-1.3) mg/dL AST (14-36) U/L ALT (4-34) U/L Alkaline Phosphatase (38-126) U/L Total Protein (6.3-8.2) g/dL Albumin (3.5-5.0) g/dL Amylase (30-110) U/L Lipase (23-300) U/L Urine Color Colorless Urine Appearance Clear (Clear) Urine pH 7.5 (5.0-8.0) Ur Specific [place] 1.030 (1.001-1.035) Urine Protein Negative (Negative) Urine Glucose (UA) Negative (Negative) Urine Ketones Negative (Negative) Urine Blood Negative (Negative) Urine Nitrite Negative (Negative) Urine Bilirubin Negative (Negative) Urine Urobilinogen <2.0 (<2.0) mg/dL Ur Leukocyte Esterase Negative (Negative) Disposition Clinical Impression: Enterocolitis Disposition: HOME SELF-CARE Condition: Good Is patient prescribed a controlled substance at d/c from ED?: No Referrals: Baltazar Amaya MD [Primary Care Provider] - 1-2 days Time of Disposition: 17:39
[2024-09-19] MEDS: LACTATED RINGERS 1,000 ML IV ONE (14:58)
[2024-09-19 15:05] LABS: Basophils # (A) 0.12 10*3/uL (0.00-0.10); Basophils % (A) 1.3 %; Eosinophils # (A) 0.22 10*3/uL (0.04-0.35); Eosinophils % (A) 2.4 %; HCT 35.1 % (37.2-46.3); HGB 11.8 g/dL (12.0-15.0); Lymphocytes # (A) 0.85 10*3/uL (0.90-5.00); Lymphocytes % (A) 9.1 %; MCH 34.3 pg (27.0-32.0); MCHC 33.6 g/dL (32.0-37.0); Mean Platelet Volume 11.3 fL (9.5-12.2); Monocytes # (A) 1.75 10*3/uL (0.20-1.00); Monocytes % (A) 18.7 %; Neutrophils # (A) 6.38 10*3/uL (1.80-7.70); Neutrophils % (A) 68.1 %; Platelet Count 159 10*3/uL (140-440); RBC 3.44 10*6/uL (4.10-5.20); RDW 13.9 % (11.5-14.5); WBC 9.36 10*3/uL (4.50-10.00)
[2024-09-19 15:24] LABS: ALT 19 U/L (4-34); AST 23 U/L (14-36); African American GFR (CKD) 79 (>60 ml/min/1.73 sqM); Albumin 3.9 g/dL (3.5-5.0); Alkaline Phosphatase 65 U/L (38-126); Amylase 47 U/L (30-110); Anion Gap 7 mmol/L; Blood Urea Nitrogen 21 mg/dL (7-17); Calcium 9.7 mg/dL (8.4-10.2); Carbon Dioxide 29 mmol/L (22-30); Chloride 103 mmol/L (98-107); Glucose 162 mg/dL (74-99); Lipase 85 U/L (23-300); Non-African American GFR(CKD) 68 (>60 ml/min/1.73 sqM); Potassium 4.1 mmol/L (3.5-5.1); Sodium 139 mmol/L (137-145); Total Bilirubin 0.8 mg/dL (0.2-1.3); Total Protein 6.5 g/dL (6.3-8.2)
[2024-09-19 16:21] VITALS: BP 123/57; PULSE 61; RESP 19; TEMP 97.7
--- NOTE | 2024-09-19 17:09 | CT ---
EXAMINATION TYPE: CT abdomen pelvis w con CT DLP: 893.5 mGycm, Automated exposure control for dose reduction was used. DATE OF EXAM: 09/19/2024 4:56 PM COMPARISON: CT abdomen 08/13/2020, 05/30/2020, 04/07/2020, MR MRCP 04/10/2020 CLINICAL INDICATION:Female, 79 years old with history of abdominal pain; abdominal pain x 3 days TECHNIQUE: Standard CT of the abdomen and pelvis following the administration of 100 cc of Isovue 3 00 IV contrast material. Coronal and sagittal reformats were performed. FINDINGS: LOWER CHEST: Posterior dependent subsegmental atelectasis is noted. Small calcifications of the visua lized circumflex and right coronary arteries. ABDOMEN LIVER: No focal lesion. [place] tail morphology. GALLBLADDER AND BILE DUCTS: Expected mild common biliary duct dilatation with the common bile duct me asuring up to 9 mm at the pancreatic head post cholecystectomy. PANCREAS: Unremarkable. SPLEEN: Unremarkable. ADRENAL GLANDS: Unremarkable. KIDNEYS AND URETERS: No evidence of hydronephrosis. The kidneys enhance symmetrically. Nonobstructive right mid kidney 2 mm cavernous. No left renal calculus. Right renal upper pole 1 cm cyst. No follow -up recommended. Contrast is demonstrated with thin both collecting systems on the delayed phase. PELVIS BLADDER: Incompletely distended but grossly unremarkable. REPRODUCTIVE: The uterus is surgically absent. ABDOMEN & PELVIS STOMACH AND BOWEL: Periampullary duodenal diverticulum. Circumferential wall thickening of the sigmoi d colon measuring up to 8 mm with diverticula identified. Circumferential wall thickening of the ileu m with some mild surrounding stranding. The appendix is within normal limits. No evidence of bowel ob struction. PERITONEUM: No evidence of pneumoperitoneum or free fluid. VASCULATURE: Mild atherosclerotic calcifications are present throughout the abdominal aorta and its b ranches. No evidence of aortic aneurysm. MUSCULOSKELETAL: No acute osseous abnormalities. Degenerative changes of the pubic symphysis. Degener ative changes of bilateral SI joints. Multilevel degenerative disease of the lower lumbar spine. Conv ex left curvature at the lumbosacral junction redemonstrated. LYMPH NODES: No evidence for lymphadenopathy. SOFT TISSUE/ABDOMINAL WALL: Stable moderate size umbilical hernia containing mesenteric fat and small mesenteric vessels. IMPRESSION: 1. Findings suggesting of an acute enterocolitis. 2. Colonic diverticulosis without evidence for acute diverticulitis. 3. Nonobstructive right renal calculus. [facility], , 09/19/2024 5:06 PM
[2024-09-19 17:12] LABS: Appearance,Urine Clear (Clear); Bilirubin,Urine Negative (Negative); Blood,Urine Negative (Negative); Color,Urine Colorless; Glucose,Urine (UA) Negative (Negative); Ketones,Urine Negative (Negative); Leukocyte Esterase,Urine Negative (Negative); Nitrite,Urine Negative (Negative); PH, Urine 7.5 (5.0-8.0); Protein,Urine Negative (Negative); Urobilinogen,Urine <2.0 mg/dL (<2.0)
[2024-09-19] MEDS: ONDANSETRON 4 MG ODT STARTER PACK 2 TAB BTL PO STA (18:03)
== END 2024-09-19 18:14 | disposition home or self-care (01) ==
LOC: EC 14:25
DX: K52.9 Noninfective gastroenteritis and colitis, unspecified (principal)
CPT/HCPCS: 36415; 80053; 82150; 83605; 83690; 85025; 81003; 74177; 99284; 96360; 96361; S0119; Q9967